=== PATIENT | male | born 1950 | race Caucasian/White ===

== ENCOUNTER 2020-01-29 07:43 | Emergency (ER) | payer MEDICARE, SELFPAY ==
[2020-01-29 07:52] VITALS: BP 147/85; PULSE 80; RESP 20; TEMP 36.2; O2SAT 98
[2020-01-29] MEDS: FAMOTIDINE 20 MG TABLET PO (08:12)
[2020-01-29] MEDS: predniSONE 20 MG TABLET 60 MG PO (08:13)
--- NOTE | 2020-01-29 08:46 | ED.SKABFB ---
HPI - Skin/Abscess/Foreign Bdy General Chief complaint: Skin/Abscess/Foreign Body Stated complaint: Hives Time Seen by Provider: 01/29/20 07:47 Source: RN notes reviewed History of Present Illness HPI narrative: Patient presents emergency department from home for hives. Patient states that symptoms began approximately 36 hours ago. States that initially began on his abdomen and spread throughout his body. He states that he did take Benadryl twice yesterday with resolution of the symptoms but then they returned. He denies any shortness of breath or swelling of the lips or tongue he denies any new soaps or lotions patient does state that approximately a month ago he was bit by a tick and been placed on doxycycline at that time with no further problems. Denies any fevers or chills. Denies any new medications Related Data Home Medications Medication Instructions Recorded Confirmed aspirin 81 mg tablet,delayed 81 mg PO DAILY 09/28/19 01/07/20 release ibuprofen 800 mg tablet 800 mg PO TID PRN 01/07/20 01/07/20 Allergies Allergy/AdvReac Type Severity Reaction Status Date / Time No Known Allergies Allergy Verified 01/29/20 08:03 Review of Systems Review of Systems: Narrative: Gen.: Denies fevers or chills ENT: Denies congestion denies swelling of the lips or tongue Respiratory: Denies shortness of breath or cough CV: Denies chest pain or palpitations GI: Denies abdominal pain nausea, emesis or diarrhea Musculoskeletal: Denies back pain or muscle pain Neuro: Denies numbness, tingling, weakness or focal weakness Skin: See HPI Except as documented, all other systems reviewed and negative [facility] Past Medical History Medical History Acute hip pain Coagulopathy Deep vein thrombosis Elevated blood pressure reading in office without diagnosis of hypertension History of atrial fibrillation without current medication Surgical History Surgical History (Updated 09/28/19 @ 13:49 by Willis Bates APRN) History of embolic filter insertion Status post ablation of atrial fibrillation Social History Social History Smoking status: Never smoker Alcohol intake: never Gender identity (if verbalized by the patient): Male Exam Narrative: Exam Narrative: APPEARANCE: No acute distress, nontoxic, resting in bed EYES: EOMI HEENT: Normocephalic, atraumatic, OMM, no swelling of lips or tongue RESPIRATORY: No respiratory distress Clear to auscultation bilaterally with no rhonchi wheezing or rales. CARDIOVASCULAR: Regular rate and rhythm without murmurs rubs or gallops. ABDOMINAL: Soft, nontender, nondistended, MUSCULOSKELETAl: Moves all extremities. No clubbing, cyanosis or edema. NEURO: Awake and alert. Following commands, speech normal, no focal deficits SKIN:: Warm, dry. Hives of her abdomen chest and back and proximal upper and lower extremities s PSYCHIATRIC: Normal affect/mood, Course Course Emergency Course: Patient with complete resolution of hives following medication Discussed with patient results of workup and diagnosis. Discussed need for follow-up with primary care, proper use of medication, and reasons to return to the emergency department. Patient understands and agrees to current treatment plan Vital Signs Vital signs: Vital Signs Temperature 97.2 F L 01/29/20 07:52 Pulse Rate 80 01/29/20 07:52 Respiratory Rate 20 01/29/20 07:52 Blood Pressure 147/85 H 01/29/20 07:52 Pulse Oximetry 98 01/29/20 07:52 Temperature 97.2 F L 01/29/20 07:52 Pulse Rate 80 01/29/20 07:52 Respiratory Rate 20 01/29/20 07:52 Blood Pressure 147/85 H 01/29/20 07:52 Pulse Oximetry 98 01/29/20 07:52 Discharge Plan Discharge Clinical Impression: Urticaria Patient Disposition: Home, Self-Care Condition: Stable Instructions: Antibiotic Form, Urticaria (ED) Additional Instructi
== END 2020-01-29 09:35 | disposition home or self-care (01) ==
PROVIDERS: Emergency Provider Emergency Medicine; PCP Internal Medicine
DX: L50.9 Urticaria, unspecified (principal); Z79.82 Long term (current) use of aspirin; Z86.73 Personal history of transient ischemic attack (TIA), and cerebral infarction without residual deficits; I48.91 Unspecified atrial fibrillation
CPT/HCPCS: 99283; A9270; J7512

== ENCOUNTER 2020-10-13 16:18 | Outpatient (CLI) | payer MEDICARE, SELFPAY ==
--- NOTE | ~2020-10-13 | US_ITS ---
EXAMINATION:US venous doppler LE LT INDICATION:Left lower extremity swelling TECHNIQUE: Multiple grayscale, color flow and Doppler images of the left lower extremity deep venous systems were obtained and reviewed. COMPARISON:No prior studies for comparison. FINDINGS: The common femoral, superficial femoral and popliteal veins demonstrate normal respiratory variation, augmentation and compressibility. Color flow is also seen within the posterior tibial, pe roneal, and profunda veins. IMPRESSION: 1: No lower extremity deep venous thrombosis. Reviewed, dictated and finalized at location A. E SPECIALIST
== END 2020-10-13 16:19 | disposition home or self-care (01) ==
PROVIDERS: PCP Internal Medicine; Visit Provider Internal Medicine
DX: M79.89 Other specified soft tissue disorders (principal); Z96.652 Presence of left artificial knee joint
CPT/HCPCS: 93971

== ENCOUNTER 2021-02-08 11:06 | Outpatient (CLI) | payer MEDICARE, SELFPAY ==
--- NOTE | ~2021-02-08 | CT_ITS ---
EXAMINATION: CT brain wo con DATE: 02/08/2021 11:31 INDICATION: Intracranial hemorrhage. TECHNIQUE: Computed tomography (CT) of the head was performed without intravenous contrast. The mA wa s adjusted according to patient size. Iterative reconstruction technique was employed. The dose-lengt h product was 605.33 mGy-cm. COMPARISON: Head CT 09/21/2012 FINDINGS: There is no intracranial hemorrhage, acute infarction, or abnormal intracranial mass lesion . There are scattered areas of low attenuation in the cerebral white matter, which is within normal l imits for the patient's age. The ventricles are normal in size. There are no pathologically enlarged lymph nodes. There is mild mucosal thickening in the paranasal sinuses. The mastoid air cells are nor mal. IMPRESSION: 1. Normal aging brain. Reviewed, dictated and finalized at location A. IMPRESSION: 1. Normal aging brain.
== END 2021-02-08 11:07 | disposition home or self-care (01) ==
PROVIDERS: PCP Internal Medicine
DX: Z01.818 Encounter for other preprocedural examination (principal)
CPT/HCPCS: 70450

== ENCOUNTER 2022-07-13 09:30 | Outpatient (CLI) | payer MEDICARE, SELFPAY ==
--- NOTE | ~2022-07-13 | CT_ITS ---
EXAMINATION: CT brain wo con DATE: 07/13/2022 09:56 INDICATION: Headache. History of cerebral hemorrhage. TECHNIQUE: Computed tomography (CT) of the head was performed without intravenous contrast. The mA wa s adjusted according to patient size. Iterative reconstruction technique was employed. Exam dose: 60 5.33 mGy-cm total exam DLP. COMPARISON: 02/13/2021 CT brain FINDINGS: There is bilateral basal ganglia calcification. No intracranial mass lesion or hemorrhage or cerebrovascular accident. No midline shift or mass effec t effect. Normal ventricular size. Bilateral carotid siphon internal carotid artery calcifications. There is mild nonspecific diminished attenuation of the cerebral white matter, likely due to chronic small vessel ischemic changes. Small luciana hole high over the right parietal convexity. No skull fracture or bone destruction. Parana jeanne sinuses and mastoid air cells are essentially unremarkable. IMPRESSION: Cerebral atherosclerosis and chronic small vessel ischemic changes of the cerebral white matter High right parietal luciana hole No acute intracranial finding Reviewed, dictated and finalized at Location A. Reviewed, dictated and finalized at location A.
== END 2022-07-13 09:31 | disposition home or self-care (01) ==
PROVIDERS: PCP Internal Medicine; Visit Provider Internal Medicine
DX: R51.9 Headache, unspecified (principal); I67.2 Cerebral atherosclerosis
CPT/HCPCS: 70450

== ENCOUNTER 2022-08-05 09:48 | Outpatient (CLI) | payer MEDICARE, SELFPAY | END 2022-08-05 09:49 | disposition home or self-care (01) | PROVIDERS: PCP Internal Medicine; Visit Provider Urology | DX: R97.20 Elevated prostate specific antigen [PSA] (principal); Z01.818 Encounter for other preprocedural examination | CPT/HCPCS: 87086 ==

== ENCOUNTER 2022-08-13 01:12 | Day surgery (SDC) | payer MEDICARE, SELFPAY ==
[2022-07-30 14:33] VITALS: BMI 26.8
--- NOTE | 2022-07-30 14:51 | PC.NURSE ---
Report to the Outpatient Waiting Room, entrance under the green pavilion located off [facility], at time _0600_ on date _08/13/22_. Planned Procedure Time: _0730_. Time changes happen often and if your time is changed the preop area will call you the afternoon before. - You and your visitor will be asked to self-screen and do not enter if you have any COVID symptoms. - Only one visitor is requested with a max of two and NO children visitors are allowed at this time. - The patient visitor may be requested to leave or wait in car when not with patient due to distancing restrictions. - A mask is optional within the hospital. Patients may have clear liquids (water, carbonated beverages, clear teas, apple juice) until 3 hours prior to surgery (0430 AM) with a maximum of 20 ounces. - No food from midnight until time of surgery Take the following medications with a SIP of water the morning of surgery: _BRING TIKOSYN WITH YOU, TYLENOL IF NEEDED_ Medications to discontinue per DR. CARPIO - _VITAMINS/SUPPLEMENTS 7 DAYS PRIOR TO SURGERY, Date to take last dose 08/05/22_ Medications to discontinue per DR. SAWANT - _ XARELTO 3 DAYS PRIOR TO SURGERY, Date to take last dose 08/05/22 - THEN LOVENOX DIRECTED Please no deodorant, or body powder the day of surgery. No jewelry (including any body piercings) or valuables the day of surgery, leave them at home. Please take a shower or bath the night before, or the morning of, surgery with an antibacterial soap. Wear comfortable, loose fitting clothing. - Jewelry must be removed prior to entering the operating room. Rings and piercings that are not removed may be cut off. - The hospital will not accept responsibility for valuables. - Please leave all valuables, including medications, at home the day of surgery. If you are going home after surgery, a licensed services delivery driver must drive you home. - NO public transportation without another adult if you receive anesthesia. - We recommend that an adult stay with you for 24 hours following discharge. - We also recommend that you do not drive, make important decision, drink alcoholic beverages, or take any drugs that were not prescribed by your health care provider for at least 24 hours after your discharge time. Follow any additional instructions given to you from your surgeon. If you or anyone in your household have experienced Covid symptoms in the past week, please notify your surgeon or the nurse liaison at the phone number below for possible testing. Telephone instructions given to ____PT and asked if any additional questions and then verbalized understanding. Patient advised to call surgeon office or pre surgery nurse liaison [phone] if any additional questions.
[2022-08-13 06:36] VITALS: BP 150/80; PULSE 63; RESP 16; TEMP 36.3; O2SAT 99
[2022-08-13] MEDS: LACTATED RINGERS 1,000 ML 30 ML IV CONT (06:45)
--- NOTE | 2022-08-13 07:21 | WPDANESEPPF ---
Anes - Initial Pre Proc Eval Procedure: Operation Date: 08/13/22 07:30 Proposed Procedures p Trans Rectal Ultrasound Fusion Guided Prostate Biopsy - Deepak Cr MD Date/Time: 08/13/22 07:21 Surgeon: Deepak Cr MD Pre Op Diagnosis: elevated PSA Patient Data Age: 71 Gender: M Height: 1.93 m Weight: 96.7 kg Last Vital Signs Temp 97.3 F L 08/13/22 06:36 Pulse 63 08/13/22 06:36 Resp 16 08/13/22 06:36 BP 150/80 H 08/13/22 06:36 Pulse Ox 99 08/13/22 06:36 O2 Del Method Room Air 08/13/22 06:36 Allergies Allergy/AdvReac Type Severity Reaction Status Date / Time No Known Allergies Allergy Verified 08/13/22 06:37 Home Medications Medication Instructions Recorded Confirmed Type calcium carbonate 500 mg calcium 500 mg PO DAILY 10/06/20 08/13/22 History (1,250 mg) tablet rivaroxaban 10 mg tablet (Xarelto) 10 mg PO DAILY 01/15/22 08/13/22 History sildenafil 100 mg tablet 100 mg PO DAILY PRN sexual 02/05/22 08/13/22 Rx activity #6 tabs dofetilide 500 mcg capsule 500 mcg PO BID 02/28/22 08/13/22 History (Tikosyn) acetaminophen 500 mg tablet 500 mg PO Q6H PRN Pain 04/19/22 08/13/22 History (Tylenol Extra Strength) enoxaparin 100 mg/mL subcutaneous 100 mg subcut Q12H 07/30/22 08/13/22 History syringe (Lovenox) Patient hx anesthesia problems: none Family hx anesthesia problems: none Results Review: All pre-operative results and documents have been reviewed as part of the pre-operative evaluation. [facility] Past Medical History Medical History Acute hip pain Chronic deep vein thrombosis (DVT) of right lower extremity Coagulopathy Deep vein thrombosis Elevated blood pressure reading in office without diagnosis of hypertension History of atrial fibrillation without current medication Right inguinal hernia Surgical History Surgical History History of embolic filter insertion S/P arthroscopic surgery of right knee Status post ablation of atrial fibrillation Total knee replacement status Family History Family History Mother Patient's mother is in good health Family history of Alzheimer's disease Father Patient's father is in good health Family history of cardiac disorder Other Family history of cardiovascular disease Social History Social History (Updated 07/12/22 @ 15:16 by Neha Coleman MA) Smoking status: Never smoker Second hand tobacco smoke exposure: No Alcohol intake: current Drinks per week: 4 Substance use: never Substance use type: does not use Lack of Transportation: No Lack of Food: Never True Current Housing: I Have Housing Concerned About Future Housing: No Difficulty Paying Gas/Electric Bills: No Difficulty Paying for Meds: No Currently Unemployed: No Education: Trade/Vocational Certificate Difficulty w/ Childcare or Family Care: No Living arrangements: with friend(s) Additional living arrangements comments: LIVES WITH SIGNIFICANT OTHER Gender identity (if verbalized by the patient): Male Spiritual care concerns: No Anes - Eval Final PreProcedure Day of Procedure 08/13/22 07:21 Patient weight: overweight Heart: regular rate and rhythm Lungs: clear to auscultation Airway: Mallampati scale class II Neurological: alert and oriented Last oral intake: >/= 8 hours ASA classification: III Emergent: no Anesthetic plan: proceed Results Review: All pre-operative results and documents have been reviewed as part of the pre-operative evaluation. Informed Consent: The patient's anesthetic plan and its attendant risks and benefits were discussed with the patient/family/POA. Questions were solicited and answers provided to the satisfaction of the patient/family/POA.
--- NOTE | 2022-08-13 07:28 | WPDHPUPDATE1 ---
History and Physical Update Update Date/Time: 08/13/22 07:28 History and Physical has been reviewed, including an updated exam of the patient. There are NO changes in the patient's condition. Risks, benefits, and alternatives have been discussed and questions answered. Patient agrees to proceed with procedure. Proceed with uronav us and prostate biopsy
[2022-08-13] MEDS: ceFAZolin 2 GM/D5W 50 ML 2 GM/50 ML BAG IVPB (07:36)
--- NOTE | 2022-08-13 08:02 | P.OP_ITS ---
Procedure Note - Detailed Date of Procedure 08/13/22 Pre-op Diagnosis elevated PSA Post-op Diagnosis Same Procedure Performed Uronav prostate ultrasound and biopsy Surgeon Deepak Cr MD Anesthesia General Description of Procedure Patient is taken the operative suite correctly identified. Once anesthesia was obtained was placed in decubitus position. Transrectal ultrasound probe was then inserted. The MRI image was then fused to the ultrasound image. Four cores were taken from the region of interest along the right anterior transition zone. We then did 12 standard core biopsy. Patient tolerated procedure well without any complications taken recovery stable condition. He is to call for [facility] results in 1 week. Estimated Blood Loss 0 Drains No Packing No Pathology Yes Complications No immediate complications Condition Stable Disposition PACU
[2022-08-13 08:07] VITALS: BP 120/66; PULSE 60; RESP 12; O2SAT 98
[2022-08-13 08:30] VITALS: BP 129/65; PULSE 56; RESP 16; O2SAT 100
[2022-08-13 08:47] VITALS: BP 140/71; PULSE 56; RESP 16
== END 2022-08-13 08:54 | disposition home or self-care (01) ==
PROVIDERS: PCP Internal Medicine; Visit Provider Urology
PROC: (CPT 55700; principal; 2022-08-13 07:30)
DX: C61 Malignant neoplasm of prostate (principal); I82.501 Chronic embolism and thrombosis of unspecified deep veins of right lower extremity; Z79.01 Long term (current) use of anticoagulants
CPT/HCPCS: 55700; 76872; 87086; 88342; G0416; J0690; J2250; J2405; J2704; J3010; J7120

== ENCOUNTER → 2023-07-22 08:13 | Outpatient (CLI) | payer MEDICARE, SELFPAY ==
--- NOTE | ~2023-07-22 | XR_ITS ---
Cervical Spine: AP, lateral, open-mouth views Clinical History: Pain Findings: The normal lordotic curve is maintained. No fracture identified. There is 3-4 mm retrolisth esis of C3 over C4. There is advanced degenerative disc narrowing at C3-C4. There are mild to moderat e facet arthropathy in the cervical spine. Pre-vertebral soft tissues are unremarkable. Impression: 3-4 mm retrolisthesis of C3 over C4. [id number] degenerative spondylitic changes, as above. Reviewed, dictated and finalized at location M. ING OPERATOR HELPER Impression: 3-4 mm retrolisthesis of C3 over C4. [id number] degenerative spondylitic changes, as above.
--- NOTE | ~2023-07-22 | CT_ITS ---
. EXAMINATION: CT brain wo con DATE: 07/22/2023 08:48 INDICATION: Headaches, beginning at the base of the neck and radiating to the frontal lobe, lasting h ours. History of 3 brain hemorrhages since 2004. TECHNIQUE: Computed tomography (CT) of the head was performed without intravenous contrast. The mA wa s adjusted according to patient size. Iterative reconstruction technique was employed. Exam dose: 64 5.69 mGy-cm total exam DLP. COMPARISON: 07/13/2022 CT brain FINDINGS: Bilateral carotid siphon internal carotid artery calcifications. Bilateral basal ganglia calcifications. No intracranial mass lesion or hemorrhage or cerebrovascular accident. No midline shift or mass effe ct. No subdural or epidural hematoma. No fracture or bone destruction of the cranial vault. There is a small mucous retention cyst of the posterior right maxillary sinus and opacification of a posteromedial right ethmoid air cell. IMPRESSION: Cerebral atherosclerosis No acute intracranial abnormality Reviewed, dictated and finalized at Location A. Reviewed, dictated and finalized at location L. FIXER
--- NOTE | ~2023-07-22 | MR_ITS ---
EXAMINATION: MR brain/brain stem wo/w con DATE: 07/22/2023 11:39 INDICATION: Headache. TECHNIQUE: Magnetic resonance imaging (MRI) of the brain and brainstem was performed without and with 19 mL MultiHance intravenous contrast. COMPARISON: Head CT 07/22/2023 FINDINGS: There are scattered areas of nonspecific increased T2-weighted signal intensity in the cere bral white matter, which is within normal limits for the patient's age. There is no intracranial hemo rrhage, acute infarction, or abnormal intracranial mass lesion. The ventricles are normal in size. Th e orbits are normal. The paranasal sinuses are clear. There is a trace left mastoid effusion. IMPRESSION: 1. Normal aging brain. Reviewed, dictated and finalized at location A. RVISOR BRIAR SHOP IMPRESSION: 1. Normal aging brain.
== END ==
PROVIDERS: PCP Family Medicine; Visit Provider Family Medicine
DX: M43.12 Spondylolisthesis, cervical region (principal); I67.2 Cerebral atherosclerosis
CPT/HCPCS: 70450; 70553; 72050; A9577

== ENCOUNTER 2023-07-30 12:45 | Outpatient (CLI) | payer MEDICARE, SELFPAY ==
[2023-07-30 19:18] LABS: Appearance Urine Clear (Clear); Color Urine Yellow (Yellow); Protein Urine Negative (Negative); Specific Grav Ur >= 1.030 (1.001-1.035); pH Urine 5.5 (5.0-9.0)
[2023-07-30 19:19] LABS: Add Urine Microscopic? NO; Bilirubin Urine 1+ (Negative); Blood Urine Negative (Negative); Glucose Urine UA Negative (Negative); Ketones Urine Trace mg/dL (Negative); Leukocyte Esterase Ur Negative LEU/UL (NEGATIVE); Nitrate Urine Negative (Negative); Urobilinogen Urine 0.2 mg/dL (<2.0)
[2023-07-30 19:32] LABS: Hematocrit 42.1 % (42.0-52.0); Mean Corpuscular HGB Conc 33.3 g/dl (32-36); Mean Corpuscular Hemoglobin 33.5 pg (26-34); Mean Corpuscular Volume 100.7 fl (80-100); Mean Platelet Volume 10.4 fl (7.4-10.4); Platelet Count Result 195 k/mm3 (150-375); Red Blood Count 4.18 M/mm3 (4.6-6.20); Red Cell Distribution Width 13.1 % (11.5-14.5); White Blood Count 5.6 K/mm3 (4.5-10.0)
== END 2023-07-30 12:46 | disposition home or self-care (01) ==
LOC: ANHGOSHLAB 12:46
PROVIDERS: PCP Family Medicine; Visit Provider Family Medicine
DX: R30.9 Painful micturition, unspecified (principal); R31.9 Hematuria, unspecified
CPT/HCPCS: 36415; 81003; 85027; 87086

== ENCOUNTER → 2023-07-30 13:01 | Outpatient (CLI) | payer MEDICARE, SELFPAY ==
--- NOTE | ~2023-07-30 | XR_ITS ---
XR abdomen/kub 1V 07/30/2023 13:21 INDICATION: Bloody stools TECHNIQUE: KUB COMPARISON: None FINDINGS: Bowel gas pattern is normal. There is an IVC filter with the superior tip at the L3 level. There is sclerosis overlying the right ilium which may represent a bone island. There is dextroscolio sis of the thoracolumbar spine. There is no evidence of free air, mass, organomegaly, ascites or obst ruction. No abnormal calculi are seen. The bones appear intact. IMPRESSION: 1: No acute abdominal abnormality identified. Reviewed, dictated and finalized at location B. RUCTIONAL AIDE
== END ==
PROVIDERS: PCP Urology; Visit Provider Family Medicine
DX: K92.1 Melena (principal)
CPT/HCPCS: 74018

== ENCOUNTER 2024-06-21 08:58 | Outpatient (CLI) | payer MEDICARE, SELFPAY ==
--- NOTE | ~2024-06-21 | US_ITS ---
EXAMINATION: US venous doppler [facility] DATE: 06/21/2024 10:26 INDICATION: Deep venous thrombosis presenting with lower limb swelling and erythema TECHNIQUE: Grayscale ultrasound images without and with compression and Doppler ultrasound images of the bilateral lower extremity veins were obtained. COMPARISON: None. FINDINGS: There is extensive noncompressible thrombus in the right common femoral vein, profunda (deep) femoral vein, femoral vein, popliteal vein, posterior tibial veins and gastrocnemius vein. This appears larg romina occlusive with vascular flow seen on color Doppler along side the thrombus with the exception of segment of the distal right femoral vein which appears occlusive. No evident thrombus in the visualiz ed right peroneal veins and greater saphenous vein outflow. There are dilated collateral veins at the posterolateral aspect the right knee. There is additional extensive thrombus in the visualized portions of left common femoral vein, profun da femoral vein, femoral vein and popliteal vein. This appears largely occlusive with vascular flow s een extending along the thrombus on color Doppler the exception of the left popliteal vein were there is a segment which appeared occlusive and one of the left posterior tibial veins which also appeared occlusive. The peroneal veins were not visualized. The posterior tibial veins, gastrocnemius vein an d greater saphenous vein outflow are patent. Per discussion with the academic affairs vice president there were additiona l collateral veins seen at the left popliteal fossa but an image which was not recorded. IMPRESSION: 1. Extensive deep venous thrombosis in both lower limbs extending from the common femoral veins dist ally to some of the veins in both calves. In a few areas the thrombus. Eccentric with linear echogeni c margins suggestive of chronic thrombus which likely also accounts for the prominent collateral vein s at the bilateral popliteal fossae. Findings were discussed with Candice Phillip MA at 1:00 PM. Reviewed, dictated and finalized at location A. IMPRESSION: 1. Extensive deep venous thrombosis in both lower limbs extending from the com mon femoral veins distally to some of the veins in both calves. In a few areas the thrombus. Eccentric with linear echogenic margins suggestive of chronic thr ombus which likely also accounts for the prominent collateral veins at the bila teral popliteal fossae. Findings were discussed with Candice Phillip MA at 1:00 PM.
== END 2024-06-21 08:59 | disposition home or self-care (01) ==
PROVIDERS: PCP Family Medicine; Visit Provider Nurse Practitioner Family
DX: M79.89 Other specified soft tissue disorders (principal); I82.491 Acute embolism and thrombosis of other specified deep vein of right lower extremity; I82.492 Acute embolism and thrombosis of other specified deep vein of left lower extremity
CPT/HCPCS: 93970

== ENCOUNTER 2024-10-26 14:08 | Outpatient (CLI) | payer MEDICARE, SELFPAY ==
--- NOTE | ~2024-10-26 | XR_ITS ---
EXAM: XR knee RT 3V, XR tibia fibula RT 2V DATE: 10/26/2024 14:31 HISTORY: M89.8X6 - Other specified disorders of bone, lower leg . COMPARISON: 10/26/2024, images only. FINDINGS: Normal mineralization. No fracture or dislocation. No lytic or blastic lesion. Joint space s are moderate medial joint space narrowing. Mild tricompartmental osteophytosis. Moderate volume ash nt fluid. No erosion or periosteal change. Mild degenerative change at the tibiotalar joint. Prominen t os trigonum. Achilles enthesopathy. Soft tissue edema of the leg. IMPRESSION: Tricompartmental right knee osteoarthritic arthritis, moderate in the medial compartment. Moderate right knee joint effusion. Prominent os trigonum, which can be a source of chronic posterio r ankle pain in some patients. Reviewed, dictated and finalized at [facility]. L LEAF LAYER IMPRESSION: Tricompartmental right knee osteoarthritic arthritis, moderate in t he medial compartment. Moderate right knee joint effusion. Prominent os trigonu m, which can be a source of chronic posterior ankle pain in some patients.
--- OUTSIDE RECORDS SUMMARY | 2024-10-26 14:12 | XMS_ITS | Encounter Summary ---
Author Organization [facility] Address [address] [place] [address] Care Team Providers Care Oncology Specialist Name Role Phone Amando Rooney DO Primary Care Provider [phone] Sarath Edward MD Primary Care Provider [phone] Denny Polo DO Primary Care Provider [phone] aMlaika Wolf MD Unavailable Jeffry Novak MD Primary Care Provider [phone] Encounter Details Date Type Department Care Team (Late st Contact Info) Description 07/22/2012 [facility] Outpatient Visit [facility] - Family Medicine [address] [place] [address] Amando Rooney DO [address] [place] [address] Social History Tobacco Use Types Packs/Day Years Used Date Smoking Tobacco: Never Smokeless Tobacco: Never Alcohol Use Standard Drinks/Week Comments Yes 5 (1 standard drink = 0.6 oz pur e alcohol) Sex and Gender Information Value Date Recorded Sex Assigned at Male 03/04/2022 6:00 PM CDT Gender Identity Male 03/04/2022 6:00 PM CDT Sexual Orientation Not on file documented as of this encounter Plan of Treatment Upcoming Encounters Date Type Department Care Team (Late st Contact Info) Description 12/29/2024 1:20 PM CDT Appointment [facility] [address] [place] [address] Malaika Wolf MD [address] [place] [phone] 12/29/2024 2:20 PM CDT Appointment [facility] [place] [id number] [place] [address] Malaika Wolf MD [facility] [place] [phone] 02/10/2025 10:00 AM CDT Office Visit [facility] - Cardiology [address] [place] [phone] Manuelito Clarke MD [address] [place] [phone] documented as of this encounter Visit Diagnoses Not on filedocumented in this encounter Care Teams Oncology Specialist Relationship Specialty Start Date End Date Amando Rooney DO [address] [place] [address] PCP - General Family Medicine 01/27/13 02/04/18 Sarath Edward MD [address] [place] [phone] PCP - General 02/05/18 08/23/20 Denny Polo DO [address] [address] PCP - General Internal Medicine 08/24/20 09/28/23 Jeffry Novak MD [address] [place] [phone] PCP - General Family Medicine 09/29/23 Malaika Wolf MD [address] [place] [phone] Physician Hematology and Oncology 09/10/23 documented as of this encounter
--- OUTSIDE RECORDS SUMMARY | 2024-10-26 14:12 | XMS_ITS | Clinical Summary ---
Author Organization [facility] Address [address] [place] [address] Care Team Providers Care Golf Ball Cover Treater Name Role Phone Denny Polo DO Primary Care Provider [phone] Allergies No known active allergies Medications calcium carbonate (OS-YESI) 1,250 MG (500 mg of elemental calcium) tablet Take 1 tablet (1,250 mg total) by mouth daily 10/04/2020 Active dofetilide (TIKOSYN) 500 mcg capsule 06/16/2021 Active rivaroxaban (XARELTO) 10 mg tabletIndicatio ns:Acute deep vein thrombosis (DVT) of axillary vein of left upper extremity (HCC) Take 1 tablet (10 mg total) by mouth daily 30 tablet 12/21/2021 Active sildenafiL (VIAGRA) 100 mg tablet 02/05/2022 Active ibuprofen (ADVIL,MOTRIN) 200 mg tab/cap Take 200 mg by mouth 4 (four) times a day as needed Active acetaminophen (TYLENOL) 500 mg tablet Take 500 mg by mouth every 6 (six) hours as needed for pain Active enoxaparin (LOVENOX) 100 mg/mL syringe Inject 100 mg under the skin every 12 (twelve) hours 06/10/2022 Active topiramate (TOPAMAX) 25 mg tablet TAKE 1 TABLET BY MOUTH EVERY DAY AT BEDTIME FOR 3 DAYS THEN INCREASE TO TWICE A DAY 07/15/2022 Active Active Problems Problem Noted Date Diagnosed Date Subdural hematoma 03/08/2021 Overview (08/13/2021): X3, 1 hematoma evacuation Lupus anticoagulant positive 03/08/2021 HTN (hypertension) 03/08/2021 Atrial flutter ([facility]) 01/12/2021 Overview (01/22/2021): Added automatically from request for surgery [id number] Longstanding persistent atrial fibrillation ([facility]) 11/29/2020 Vitamin D deficiency 09/29/2020 Primary osteoarthritis of left knee 05/04/2020 Dyspnea on exertion 10/13/2019 Other chest pain 10/11/2019 Chronic pain of left knee 04/14/2019 Presence of IVC filter 07/12/2018 Effusion of left knee 03/24/2018 Chondromalacia of medial femoral condyle, right 02/23/2018 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 02/18/2018 Chondromalacia of trochlea 12/02/2017 Chondromalacia of medial condyle of right femur 12/02/2017 Chondromalacia of right patella 12/02/2017 Localized chondromalacia 12/02/2017 Tibial plateau chondromalacia 12/02/2017 Complex tear of medial menis cus of right knee as current injury 10/13/2017 Effusion of knee 10/13/2017 Osteoarthritis of left knee 10/13/2017 Osteoarthritis of right knee 10/13/2017 Tear of medial meniscus of knee 10/13/2017 Varicose veins of lower extremities with inflamm ation 01/18/2016 Acute embolism and thrombosi s of deep vein of lower extremity 02/23/2013 Personal history of other di seases of the circulatory system 02/23/2013 Venous insufficiency (chronic) (peripheral) 02/06 A-fib ([facility]) 05/02/2011 Overview (08/13/2021): Last Assessment & Plan: S/P mini Maze, currently taking Tikosyn for rhythm control with QTc of 432 ms. Patient is tolerating Tikosyn and presents in sinus rhythm today. He feels great. Plan to continue Tikosyn as managed by Dr. Mendoza at [facility]. Continue Eliquis for 30 days after cardioversion. Follow-up as scheduled with Dr. Mendoza's team in May and with Dr. Clarke in August or sooner PRN. Immunizations Immunization Administration Dates Next Due Influenza, Quad, Adjuvantated, Intramuscular 04/2020 Influenza, Trivalent, High D ose, Split, Preservative Free, Intramuscular 06/10/2019 Influenza, Trivalent, Split, Preservative Free, Intradermal 06/11/2013 Surgical History Surgery Date Site/Laterality Comments IVC FILTER RETRIEVAL 09/08/2004 - 09/07/2005 TONSILLECTOMY ORCHIECTOMY VARICOSE VEIN SURGERY OTHER SURGICAL HISTORY subdural hematoma evacuation SWEET-MAZE MICROWAVE ABLATION 09/08/2010 - 09/07/2011 CARDIAC ELECTROPHYSIOLOGY STUDY AND ABLATION HERNIA REPAIR inguinal hernia JOINT REPLACEMENT 09/2020 Medical History Medical History Date Comments Atrial fibrillation (CMS/HCC) (HCC) recurrence DVT of lower extremity (deep venous thrombosis) (HCC) Subdural hematoma (HCC) x3 Presence of IVC filter Arthritis Clotting disorder (CMS/HCC) (HCC) 2004 Kidney stone 1996 Family History Medical History Relation Name Comments Arthritis Father Schuyler Family history of arthritis - (Added by TW Conv) Hypertension Father Schuyler Family history of hypertension - (Added by TW Conv) Alzheimer's disease Mother Yakelin Relation Name Status Comments Father Schuyler Mother Yakelin Social History Tobacco Use Types Packs/Day Years Used Date Smoking Tobacco: Never Smokeless Tobacco: Never Tobacco Cessation:Counseling Given: Not Answered Alcohol Use Standard Drinks/Week Comments Yes 6 (1 standard drink = 0.6 oz pur e alcohol) Sex and Gender Information Value Date Recorded Sex Assigned at Not on file Legal Sex Male 11:37 AM BLAST FURNACE CHECKER Gender Identity Not on file Sexual Orientation Not on file Obstetrics History Last Filed Vital Signs Vital Sign Reading Time Taken Comments Blood Pressure 164/81 07/29/2022 2:46 PM BLAST FURNACE CHECKER Pulse 83 07/29/2022 2:46 PM BLAST FURNACE CHECKER Temperature 36.3 C (97.4 F) 07/29/2022 2:46 PM BLAST FURNACE CHECKER Respiratory Rate 18 10/04/2020 7:45 AM BLAST FURNACE CHECKER Oxygen Saturation 96% 10/04/2020 7:45 AM BLAST FURNACE CHECKER Inhaled Oxygen Concentration - - Weight 99.8 kg (220 lb) 07/29/2022 2:46 PM BLAST FURNACE CHECKER Height 190.5 cm (6' 3 ) 07/29/2022 2:46 PM BLAST FURNACE CHECKER Body Mass Index 27.5 07/29/2022 2:46 PM BLAST FURNACE CHECKER Plan of Treatment Health Maintenance Due Date Last Done Comments Colon Cancer Screening-Colonoscopy 1950 Depression Screening 1950 Hepatitis C Screening 1950 DTaP/Tdap/Td Vaccine (1 - Tdap) 11/06/1962 Hepatitis B Screening 11/06/1969 Pneumococcal vaccine 65+ (1 of 1 - PCV) 11/06/2001 Zoster Vaccine (1 of 2) 11/06/2001 Abdominal Aortic Aneurysm (A AA) Screen 11/06/2016 12/18/2015 Well Visit 65+ 11/06/2016 Fall Risk Assessment 10/04/2021 10/04/2020 Influenza Vaccine (#1) 2024 2, 05/16/2020, 06/10/2019, Additional history exists Medical Devices Implanted Type Area Box Gluer Device Identifier Shelf Expiration Date Model / Serial / Lot Ivc Filter- 5 Implanted:Qty: 1 on 09/20/2004 IVC Filter Right: Groin [employer] [id number] Attune Cruciate Retain Cementless Knee Left 8 Component Femoral - Sn/A - [id number] Implanted:Qty: 1 on 10/03/2020 by Koffi Liao MD at [facility] Other - see comments Left: Knee [employer] [id number] 03/07/2030 [id number] / N/A / [id number] [employer] [id number] Attune Cementless Rotate Platform Knee 10 Baseplate Tibial - Sn/A - [id number] Implanted:Qty: 1 on 10/03/2020 by Koffi Liao MD at [facility] Other - see comments Left: Knee [employer] [id number] 09/07/2029 [id number] / N/A / [id number] [employer] [id number] Attune 8mm Cruciate Retaining Rotate Platform Knee 8 Insert - Sn/A - [id number] Implanted:Qty: 1 on 10/03/2020 by Koffi Liao MD at [facility] Other - see comments Left: Knee [employer] [id number] 08/07/2025 [id number] / N/A / [id number] Procedures Procedure Name Priority Date/Time Associated Diagnosis Comments CTA ABDOMEN PELVIS W WO CONTRAST Routine 12/18/2015 12:30 PM CDT from Last 3 Months or Most Recently Relevant to Health Maintenance Results * CTA Abdomen Pelvis (12/18/2015 12:30 PM CDT) Anatomical Region Laterality Modality Body N/A Computed Tomogra phy 12/18/2015 12:3 0 PM CDT Impressions 12/18/2015 2:54 PM CDT 1. 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 2. There is suboptimal contrast opacification of the common and visualized portions of the superficial femoral veins. The femoral veins are symmetric and not enlarged or inflamed which suggests they are not acutely occluded. 3. Large right varicocele. 4. Diverticulosis without evidence of diverticulitis. Automated exposure control was used as a dose optimization technique for this examination. THIS IS AN ELECTRONICALLY VERIFIED REPORT 12/18/2015 2:50 PM: Danilo Sweet M.D. Danilo Sweet M.D. EMELY:emely 02:50 PM 02:50 PM [facility] [EOD] Narrative 12/18/2015 2:54 PM CDT EXAMINATION: Pre and post IV contrast CT the abdomen and pelvis. HISTORY: Chronic blood clots. Darcy filter placed 06/2005. Increased leg pain. Kidney stones 2 years ago. TECHNIQUE: Pre and post IV contrast CT the abdomen pelvis including delayed imaging. 100 mL Omnipaque 340 was administered the right antecubital IV site. No oral contrast. FINDINGS: There is an IVC filter seen with the tip at the level of the right renal vein. There is calcified thrombus seen within the filter. The IVC filter is diminutive and probably chronically occluded at the level of the IVC filter. There is collateralization of the venous flow from the pelvis with numerous pelvic varices. Knee into the right renal vein/IVC above the level of the filter. venous collaterals are seen arising from the common femoral vein is seen bilaterally. The common femoral veins are symmetric and size and there is no evidence of inflammatory change the iliac veins are occluded. There is a large right varicocele and fat filled right inguinal hernia. There are umbilical varices. The superior mesenteric vein is mildly enlarged in opacified normally. The portal venous system is opacified normally. The abdominal aorta and abdominal arteries are normally opacified. subsegmental atelectasis relating contour of the pleura posteriorly is noted. The liver, adrenals, pancreas, spleen, kidneys and gallbladder are unremarkable. There are numerous colonic diverticula without evidence of diverticulitis. The appendix is normal. There is no inflammatory change of the bowel. No evidence of obstruction. No free abdominal air free fluid. There are no suspicious osseous lesions. There is severe degenerative intervertebral disc disease at L5-S1 and mild multilevel degenerative intervertebral disc disease of the lumbar spine. Procedure Note Provider, MD Mono - 01/24/2021 EXAMINATION: Pre and post IV contrast CT the abdomen and pelvis. HISTORY: Chronic blood clots. Salvisa filter placed 06/2005.Increased leg pain. Kidney stones 2 years ago. TECHNIQUE: Pre and post IV contrast CT the abdomen pelvis includingdelayed imaging. 100 mL Omnipaque 340 was administered the right antecubital IVsite. No oral contrast. FINDINGS: There is an IVC filter seen with the tip at the level of theright renal vein. There is calcified thrombus seen within the filter. The IVC filter is diminutive and probably chronically occluded at the level of theIVC filter. There is collateralization of the venous flow from the pelvis with numerous pelvic varices. Knee into the right renal vein/IVC above thelevel of the filter. venous collaterals are seen arising from the commonfemoral vein is seen bilaterally. The common femoral veins are symmetric and sizeand there is no evidence of inflammatory change the iliac veins areoccluded. There is a large right varicocele and fat filled right inguinal hernia. There are umbilical varices. The superior mesenteric vein is mildlyenlarged in opacified normally. The portal venous system is opacified normally. The abdominal aorta and abdominal arteries are normally opacified. subsegmental atelectasis relating contour of the pleura posteriorly isnoted. The liver, adrenals, pancreas, spleen, kidneys and gallbladder are unremarkable. There are numerous colonic diverticula without evidence of diverticulitis. The appendix is normal. There is no inflammatory change of the bowel. No evidence of obstruction. No free abdominal air free fluid. There are no suspicious osseous lesions. There is severe degenerative intervertebraldisc disease at L5-S1 and mild multilevel degenerative intervertebral discdisease of the lumbar spine. IMPRESSION: 1. 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 2. There is suboptimal contrast opacification of the common andvisualized portions of the superficial femoral veins. The femoral veins aresymmetric and not enlarged or inflamed which suggests they are not acutely occluded. 3. Large right varicocele. 4. Diverticulosis without evidence of diverticulitis. Automated exposure control was used as a dose optimization technique forthis examination. THIS IS AN ELECTRONICALLY VERIFIED REPORT 12/18/2015 2:50 PM: Danilo Sweet M.D. Danilo Sweet M.D. EMELY:emely 02:50 PM 02:50 PM [facility] [EOD] Himanshu Brito MD IM CT PROCEDURES Final Re sult from Last 3 Months or Most Recently Relevant to Health Maintenance Insurance [employer] CHO[employer] MEDICARE PPO [employer] CHOICE MEDICARE PPO [employer]ICE MEDICARE PPO Advance Directives For more information, please contact: [phone] Documents on File Type Date Recorded Patient Decommissioning Well Site Manager Expl anation ADVANCE DIRECTIVE 10/03/2020 9:53 AM ADVANCE DIRECTIVE 01/09/2018 11:21 AM ADVANCE DIRECTIVE 01/09/2018 Advance Di rective Checklist ADVANCE DIRECTIVE 02/02/2016 12:00 AM ABEL [employer] * Full Code (Latest Code Status on File) Date Activated Date Inactivated Comments 10/03/2020 3:58 PM 10/04/2020 1:55 PM Care Teams Golf Ball Cover Treater Relationship Specialty Start Date End Date Denny Polo DO PCP - General Internal Medicine 04/06/19
--- OUTSIDE RECORDS SUMMARY | 2024-10-26 14:12 | XMS_ITS | Continuity of Care Document ---
Author Organization [facility] Address [address] [place] [address] Phone Care Team Providers Care Cut Roll Machine Offbearer Name Role Phone Jairo Webb MD Unavailable Unavailable Allergies, Adverse Reactions, Alerts Substance Reaction Status Criticality No Known Allergies Active No Inform ation Medications Medication Instructions Dosage Effective Dates (start - stop) Status Comments No Drug Therapy Prescribed Procedures Procedure Date RADEX [facility] 1 VIEW OFFICE/OUTPATIENT VISIT EST OFFICE CONSULTATION RADEX ISIDRO COMPL MINIMUM 2 VIEWS 016 Advance Directives Directive Yes / No Effective Date File Name No Information Encounters Encounter Description Practice Location Reason(s) For Visit Diagnoses Date Provider Providers Copied on Encounter [facility], [address], [place], [address], [place] tel:[phone] [facility] No Information 6 Tracey Gill. [address] [facility] [address] [place], [place], [id number] . tel: [phone] OFFICE/OUTPAT IENT VISIT EST [facility], [address], [place], [address], [place] tel:[phone] [facility] Pain in right shoulderIncompl ete tear of right rotator cuffClosed fracture of right scapula with routine healing, unspecified part of scapula, subsequent encounter 6 Dusek Jairo. [address] [facility] [place], [id number] . tel: [phone] OFFICE CONSULTATION [facility], [address], [place], [address], [place] tel:[phone] [facility] Right shoulder pain (chief complaint) Closed fracture of right scapula, unspecified part of scapula, initial encounterIncomp lete tear of right rotator cuff 6 Zachariah Thompson. [address], [place], [place], [id number] . tel: [phone] Referring Provider: Sarath Levin, [address], [place], [address]. tel:[phone] Family History Family Member Type Diagnosis Age At Onset Father Problem (finding) osteoarthritis Father Problem (finding) atrial fibrillation Payers Payer name Insurance type Covered constitution party ID Nicole kelly(s) Blue Access PPO E2 OT [id number] Social History Type Description Quantity Date Captured Comments Alcohol Use Details Unknown Caffeine Use Details Unknown Tobacco Use Status No Information Smoking Status No Information Sex Male Chief Complaint And Reason For Visit No Information Reason For Referral Reason For Referral No Information Plan Of Treatment Date Type Action Status Referral Ordered: RADEX ISIDRO 1 VIEW RT shoulder ordered Referral Ordered: RADEX ISIDRO COMPL MINIMUM 2 VIEWS RT ordered History Of Present Illness Encounter Date Complaint History Of Prese nt Illness Right shoulder pain Functional Status Date Functional Assessmen t No Information Medications Administered Medication Instructions Dosage Effective Dates (start - stop) Status Comments No Drug Therapy Prescribed Instructions Date Instruction Additional Infor mation Rest, ice and elevate. Related t o Incomplete tear of right rotator cuff Take medication as directed. Rel ated to Incomplete tear of right rotator cuff Discussed treatment options Rela braden to Incomplete tear of right rotator cuff Call for increase in pain Relate d to Incomplete tear of right rotator cuff Assessments Type Assessment Date No Information Patient Care Teams Name Effective Dates (start - stop) Status Members No Information
--- OUTSIDE RECORDS SUMMARY | 2024-10-26 14:12 | XMS_ITS | Clinical Summary ---
Author Organization [facility] Address [address] [place] [address] Care Team Providers Care Telecom Billing Analyst Name Role Phone Malaika Wolf MD Unavailable Jeffry Novak MD Primary Care Provider [phone] Source Comments [facility],non-owned Affiliates and Associated Physician Practices is amultiple site organization consisting of ambulatory clinics and hospital sitesin [place], [place], [place] and [place]. This disclosure is being madepursuant to the Care Everywhere program and may not contain all information available regarding this patient. Last updated 18.[facility] Allergies No known active allergies Medications * Be aware that medications may not be up to date on this document. Alwaysverify current medications with the patient. Medication Sig Dispensed Refills Start Date End Date Status acetaminophen (TYLENOL) 500 MG capsule Take 1 (one) capsule by mouth every 4 hours as needed for Fever or Pain Active calcium carbonate (OS-YESI 500) 1250 (500 Ca) MG tablet Take 2.5 (two and one-half) tablets by mouth once daily 10/04/2020 Active sildenafil (VIAGRA) 100 MG tablet 01/17/2021 Active Multiple Vitamins-Minerals (MULTIVITAMIN & MINERAL PO) Active rivaroxaban (Xarelto) 10 MG tabletIndications: 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 (HCC) Take 1 (one) tablet by mouth daily with dinner 30 tablet 2 06/12/2023 Active polyethylene glycol (Gavilyte-C) 240 g solution Drink half the prep at 5pm the night before colonoscopy. Drink the rest of prep at 4am the day of the colonoscopy. 4000 mL 09/30/2023 Active Additional Information Patient not taking.Reported on 10/02/2023 dofetilide (Tikosyn) 500 MCG capsule Take 1 (one) capsule by mouth 2 times daily 180 capsule 11 10/02/2023 Active amoxicillin (Amoxil) 500 MG capsule Take 4 capsules 2 hours before dental procedure. 4 capsule 10/02/2023 Active Additional Information Patient not taking.Reported on 12/24/2023 Active Problems Problem Noted Date Diagnosed Date HTN (hypertension) 03/08/2021 Lupus anticoagulant positive 03/08/2021 Subdural hematoma 03/08/2021 Overview (07/25/2022): X3, 1 hematoma evacuation X3, 1 hematoma evacuation Longstanding persistent atrial fibrillation 11/07 Vitamin D deficiency 09/29/2020 Dyspnea on exertion 10/13/2019 Other chest pain 10/11/2019 Chronic pain of left knee 04/14/2019 Presence of IVC filter 07/12/2018 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 02/18/2018 Chondromalacia 12/02/2017 Complex tear of medial menis cus of right knee as current injury 10/13/2017 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 Patient is tolerating Tikosyn and presents in sinus rhythm today. He feels great. Plan to continue Tikosyn as managed by Dr. Mendoza at [facility]. Continue Eliquis for 30 days after cardioversion. Follow-up as scheduled with Dr. Mendoza's team in May and with Dr. Clarke in August or sooner PRN. Resolved Problems Problem Noted Date Diagnosed Date Resolved Date DVT (deep venous thrombosis) 06/05/2014 Fluttering heart 06/05/2014 Encounters Date Type Department Care Team Description 08/25/2024 Telephone [facility] - Centralized Scheduling [address] [place] [address] Blayne Clarke MD Reschedule Appointment 08/19/2024 9:40 AM [facility] [place] Office Visit [facility] - Cardiology [address] [facility] [place] [phone] Blayne Clarke MD Atypical atrial flutter (HCC) (Primary Dx) 08/19/2024 Travel from Last 3 Months Immunizations Name Administration Dates Next Due INFLUENZA VACCINE 06/28/2022 INFLUENZA VACCINE, ADJUVANTE D, QUADR. (FLUAD QUADRIVALENT; 65Y+) (AIIV4) 05/16/2020 INFLUENZA VACCINE, HIGH-DOSE , QUADR. (FLUZONE HIGH-DOSE QUADRIVALENT; 65Y+), 0.7 ML (HD-IIV4) 06/10/2019 Influenza Pf Intradermal (ADULT) 06/11/2013 Social History Tobacco Use Types Packs/Day Years Used Date Smoking Tobacco: Never Smokeless Tobacco: Never Tobacco Cessation:Counseling Given: Not Answered Alcohol Use Standard Drinks/Week Comments Yes 5 (1 standard drink = 0.6 oz pur e alcohol) occ PHQ-2 Answer Date Recorded PHQ2 TOTAL SCORE 0 07/25/2022 Sex and Gender Information Value Date Recorded Sex Assigned at Male 03/04/2022 6:00 PM CDT Gender Identity Male 03/04/2022 6:00 PM CDT Sexual Orientation Not on file Last Filed Vital Signs Vital Sign Reading Time Taken Comments Blood Pressure 150/90 08/19/2024 9:49 AM [facility] Pulse 78 08/19/2024 9:49 AM [place] Temperature 36.8 C (98.2 F) 07/14/2024 10:46 AM [place] Respiratory Rate 18 07/14/2024 10:46 AM [place] Oxygen Saturation 97% 08/19/2024 9:49 AM [place] Inhaled Oxygen Concentration - - Weight 98.9 kg (218 lb) 08/19/2024 9:49 AM [place] Height 193 cm (6' 4 ) 08/19/2024 9:49 AM [place] Body Mass Index 26.54 08/19/2024 9:49 AM [place] Plan of Treatment Upcoming Encounters Date Type Department Care Team (Late st Contact Info) Description 12/29/2024 1:20 PM CDT Appointment [facility] [address] [place] [phone] Malaika Wolf MD [address] [place] [phone] 12/29/2024 2:20 PM CDT Appointment [facility] [address] [place] [phone] Malaika Wolf MD [address] [place] [phone] 02/10/2025 10:00 AM CDT Office Visit [facility] - Cardiology [facility] [phone] Blayne Clarke MD [address] [place] [phone] Health Maintenance Due Date Last Done Comments COLOGUARD (AGES 45-75) - COLON CA SCREENING 1950 COLON MONITORING 1950 COLONOSCOPY - COLON CA SCREENING 1950 CT COLONOGRAPHY - COLON CA SCREENING 1950 Colorectal Cancer Screening 1950 FIT - COLON CA SCREENING 1950 FLEX SIG - COLON CA SCREENING 1950 LIPID TESTING 1950 HEPATITIS C SCREENING 11/02/1969 DTAP/TDAP/TD VACCINES (1 - Tdap) 11/06/1970 PNEUMOCOCCAL VACCINE 50+ (1 of 1 - PCV) 11/06/2001 ZOSTER VACCINE (1 of 2) 11/06/2001 Respiratory Syncytial Virus (RSV) Vaccine Pt: or over 60 yrs (1 - Risk 60-74 years 1-dose series) 2011 COVID-19 VACCINE ( season) 2024 02/12/2022, 07/06/2021, 12/07/2020, Additional history exists INFLUENZA VACCINE (#1) 2024 2, 06/13/2022, 06/07/2021, Additional history exists DEPRESSION SCREENING 09/08/2024 07/25/2022 MEDICARE AWV CALENDAR YEAR 2024 SCREENING FOR DIABETES 09/10/2027 , 06/30/2024, 12/24/2023, Additional history exists HEPATITIS B VACCINE Aged Out No longe r eligible based on patient's age to complete this topic HIB VACCINE Aged Out No longer eligi ble based on patient's age to complete this topic HPV VACCINE Aged Out No longer eligi ble based on patient's age to complete this topic MENINGOCOCCAL (Group B) VACCINE Aged Out No longer eligible based on patient's age to complete this topic MENINGOCOCCAL VACCINE Aged Out No luda luz maria eligible based on patient's age to complete this topic Medical Devices Implanted Type Area Glass Worker Device Identifier Shelf Expiration Date Model / Serial / Lot Mesh Srg Ultrapro 4.7x2.4in Lg [place] Implanted:Qty: 1 on 08/03/2018 by Lionel Bee MD at [facility] Right: [employer] 02/06/2020 [facility] / / [id number] Description:DOCUMENTED BY Julianne Harrison Procedures Procedure Name Priority Date/Time Associated Diagnosis Comments BASIC METABOLIC PANEL (CALCIUM TOTAL) Routine 09/10/2024 7:13 AM [facility] [place] Atypical atrial flutter (HCC) EKG 12-LEAD Routine 08/19/2024 9:58 AM [facility] Atypical atrial flutter (HCC) from Last 3 Months Results * (ABNORMAL) BASIC METABOLIC PANEL (CALCIUM TOTAL) (09/10/2024 7:13 AM [facility]) Glucose 100(H) 65 - 99 mg/dL [facility] Comment: Fasting reference interval For someone without known diabetes, a glucose value between 100 and 125 mg/dL is consistent with prediabetes and should be confirmed with a follow-up test. BUN 14 7 - 25 mg/dL [facility] Creatinine 0.85 0.70 - 1.28 mg/dL [facility] eGFR by Cystatin C 92 > OR = 60 mL/min/1. 73m2 [facility] BUN/Creatinine Ratio SEE NOTE: (calc) [facility] Comment: Not Reported: BUN and Creatinine are within reference range. Sodium 141 135 - 146 mmol/L [facility] Potassium 4.5 3.5 - 5.3 mmol/L [facility] Chloride 105 98 - 110 mmol/L [facility] CO2 29 20 - 32 mmol/L [facility] Calcium 9.0 8.6 - 10.3 mg/dL [facility] Comment: Test Performed at: [facility] [id number] DERIC JEAN BAPTISTE MD Blood BLOOD SPECIMEN / Unknown 09/10/2024 7:13 AM [place] 09/10/2024 7:14 AM [place] Blayne Clarke MD LAB - CHEMISTRY [facility] [address] [address] * EKG 12-LEAD (08/19/2024 9:58 AM [facility] [place]) Ventricular Rate 75 BPM [facility] Atrial Rate 75 BPM [facility] P-R Interval 186 ms [facility] QRS Duration ms 90 ms [facility] Q-T Interval ms 436 ms [facility] QTC Calculation (Bezet) 486 ms [facility] Calculated P Hartley 92 degrees [facility] Calculated R Hartley 1 degrees [facility] Calculated T Hartley 41 degrees [facility] Interpretation EKG NORMAL SINUS RHYTHM PROLONGED QT ABNORMAL ECG WHEN COMPARED WITH ECG OF 02-OCT-2023 14:47, ABERRANT CONDUCTION IS NO LONGER PRESENT Confirmed by fellow NIKA TRAMMELL MD ([id number]) on 08/26/2024 8:40:07 AM Confirmed by BLAYNE CLARKE MD ([id number]) on 08/28/2024 2:13:35 PM [facility] 08/19/2024 9:58 AM [facility] 08/28/2024 2:13 PM [facility] [place] Blayne Clarke MD ECG ORDERABLES [facility] from Last 3 Months Advance Directives Documents on File Type Date 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
--- OUTSIDE RECORDS SUMMARY | 2024-10-26 14:12 | XMS_ITS | Patient Health Summary ---
Author Organization [facility] [employer] Address [address] [place] [address] Care Team Providers Care Product Inspection Supervisor Name Role Phone Malaika Wolf MD Unavailable Jeffry Novak MD Primary Care Provider [phone] Note from [facility],non-owned Affiliates and Associated Physician Practices is amultiple site organization consisting of ambulatory clinics and hospital sitesin [place], [place], [place] and [place]. This disclosure is being madepursuant to the Care Everywhere program and may not contain all information available regarding this patient. Last updated 18.[facility] Allergies No known active allergies Medications * Be aware that medications may not be up to date on this document. Alwaysverify current medications with the patient. * acetaminophen (TYLENOL) 500 MG capsule Take 1 (one) capsule by mouth every 4 hours as needed for Fever or Pain * calcium carbonate (OS-YESI 500) 1250 (500 Ca) MG tablet(Started 10/04/2020) Take 2.5 (two and one-half) tablets by mouth once daily * sildenafil (VIAGRA) 100 MG tablet(Started 01/17/2021) * Multiple Vitamins-Minerals (MULTIVITAMIN & MINERAL PO) * rivaroxaban (Xarelto) 10 MG tablet(Started 06/12/2023) Take 1 (one) tablet by mouth daily with dinner 2 refills by 06/11/2024 * polyethylene glycol (Gavilyte-C) 240 g solution(Started 09/30/2023) Drink half the prep at 5pm the night before colonoscopy. Drink the rest of prep at 4am the day of the colonoscopy. * dofetilide (Tikosyn) 500 MCG capsule(Started 10/02/2023) Take 1 (one) capsule by mouth 2 times daily 11 refills by 10/01/2024 * amoxicillin (Amoxil) 500 MG capsule(Started 10/02/2023) Take 4 capsules 2 hours before dental procedure. Active Problems Problem Noted Date Diagnosed Date HTN (hypertension) 03/08/2021 Lupus anticoagulant positive 03/08/2021 Subdural hematoma 03/08/2021 Longstanding persistent atrial fibrillation 11/07 Vitamin D [...] Venous insufficiency (chronic) (peripheral) 02/06 A-fib 05/02/2011 Resolved Problems Problem Noted Date Diagnosed Date Resolved Date DVT (deep venous thrombosis) 06/05/2014 Fluttering heart 06/05/2014 Immunizations * INFLUENZA VACCINE(Given 06/28/2022) * INFLUENZA VACCINE, ADJUVANTED, QUADR. (FLUAD QUADRIVALENT; 65Y+) (AIIV4)(Given 05/16/2020) * INFLUENZA VACCINE, HIGH-DOSE, QUADR. (FLUZONE HIGH-DOSE QUADRIVALENT; 65Y+), 0.7 ML (HD-IIV4)(Given 06/10/2019) * Influenza Pf Intradermal (ADULT)(Given 06/11/2013) Social History Tobacco Use Types Packs/Day Years [...] Comments Blood Pressure 150/90 08/19/2024 9:49 AM INTERVENTIONAL RADIOLOGY RN Pulse 78 08/19/2024 9:49 AM INTERVENTIONAL RADIOLOGY RN Temperature 36.8 C (98.2 F) 07/14/2024 10:46 AM INTERVENTIONAL RADIOLOGY RN Respiratory Rate 18 07/14/2024 10:46 AM INTERVENTIONAL RADIOLOGY RN Oxygen Saturation 97% 08/19/2024 9:49 AM INTERVENTIONAL RADIOLOGY RN Inhaled Oxygen Concentration - - Weight 98.9 kg (218 lb) 08/19/2024 9:49 AM INTERVENTIONAL RADIOLOGY RN Height 193 cm (6' 4 ) 08/19/2024 9:49 AM INTERVENTIONAL RADIOLOGY RN Body Mass Index 26.54 08/19/2024 9:49 AM INTERVENTIONAL RADIOLOGY RN Medical Devices Implanted Type Area Administrative Services Specialist Device Identifier Shelf Expiration Date Model / Serial / Lot Mesh Srg Ultrapro 4.7x2.4in Lg [place] Implanted:Qty: 1 on 08/03/2018 by Lionel Bee MD at [facility] Right: [employer]in [employer] 02/06/2020 [facility] / / [id number] Description:DOCUMENTED BY Julianne Harrison Procedures * BASIC METABOLIC PANEL (CALCIUM TOTAL)(Performed 09/10/2024) Performed for Atypical atrial flutter (HCC) * EKG 12-LEAD(Performed 08/19/2024) Performed for Atypical atrial flutter (HCC) * CBC W AUTO DIFFERENTIAL(Performed 06/30/2024) Performed for 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 (HCC) * COMPREHENSIVE METABOLIC PANEL(Performed 06/30/2024) Performed for 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 (HCC) * CBC W AUTO DIFFERENTIAL(Performed 12/24/2023) Performed for 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 (HCC) * COMPREHENSIVE METABOLIC PANEL(Performed 12/24/2023) Performed for 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 (HCC) * EKG 12-LEAD(Performed 10/02/2023) Performed for Persistent atrial fibrillation (HCC) * VAS BILATERAL VENOUS DUPLEX LE(Performed 08/13/2023) Performed for 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 (HCC) * PTT [facility](Performed 08/13/2023) Performed for Venous insufficiency (chronic) (peripheral) * PT-INR [facility](Performed 08/13/2023) Performed for Venous insufficiency (chronic) (peripheral) * CBC W AUTO DIFFERENTIAL(Performed 08/13/2023) Performed for Venous insufficiency (chronic) (peripheral) * COMPREHENSIVE METABOLIC PANEL(Performed 08/13/2023) Performed for Venous insufficiency (chronic) (peripheral) * PTT [facility](Performed 07/01/2023) Performed for 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 (HCC), Anticoagulation management encounter * PT-INR [facility](Performed 07/01/2023) Performed for 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 (HCC), Anticoagulation management encounter * COMPREHENSIVE METABOLIC PANEL(Performed 07/01/2023) Performed for 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 (HCC), Anticoagulation management encounter * CBC W AUTO DIFFERENTIAL(Performed 07/01/2023) Performed for 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 (HCC), Anticoagulation management encounter * EKG 12-LEAD(Performed 02/14/2023) Performed for Persistent atrial fibrillation (HCC) * PTT [facility](Performed 08/23/2022) Performed for 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 (HCC), Thrombophilia (HCC), Anticoagulation management encounter * PT-INR [facility](Performed 08/23/2022) Performed for 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 (HCC), Thrombophilia (HCC), Anticoagulation management encounter * COMPREHENSIVE METABOLIC PANEL(Performed 08/23/2022) Performed for 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 (HCC), Thrombophilia (HCC), Anticoagulation management encounter * CBC W AUTO DIFFERENTIAL(Performed 08/23/2022) Performed for 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 (HCC), Thrombophilia (HCC), Anticoagulation management encounter * PROTEIN C ACTIVITY(Performed 05/31/2022) Performed for 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 (HCC) * LUPUS ANTICOAGULANT PANEL(Performed 05/06/2022) Performed for Thrombophilia (HCC), Chronic deep vein thrombosis (DVT) of femoral vein of both lowerextremities (HCC) * HEXAGONAL PHOSPHOLIPID NEUTRALIZATION(Performed 05/06/2022) Performed for Thrombophilia (HCC), Chronic deep vein thrombosis (DVT) of femoral vein of both lowerextremities (HCC) * BETA-2 GLYCOPROTEIN 1 ANTIBODY IGG/IGM PANEL(Performed 05/06/2022) Performed for Thrombophilia (HCC), Chronic deep vein thrombosis (DVT) of femoral vein of both lowerextremities (HCC) * FACTOR V LEIDEN MUTATION PANEL(Performed 05/06/2022) Performed for Thrombophilia (HCC), Chronic deep vein thrombosis (DVT) of femoral vein of both lowerextremities (HCC) * PROTHROMBIN [id number] PANEL(Performed 05/06/2022) Performed for Thrombophilia (HCC), Chronic deep vein thrombosis (DVT) of femoral vein of both lowerextremities (HCC) * COMPREHENSIVE METABOLIC PANEL(Performed 05/06/2022) Performed for Thrombophilia (HCC), Chronic deep vein thrombosis (DVT) of femoral vein of both lowerextremities (HCC) * CBC W AUTO DIFFERENTIAL(Performed 05/06/2022) Performed for Thrombophilia (HCC), Chronic deep vein thrombosis (DVT) of femoral vein of both lowerextremities (HCC) * BETA-2 GLYCOPROTEIN 1 ANTIBODY IGA(Performed 05/06/2022) Performed for Thrombophilia (HCC), Chronic deep vein thrombosis (DVT) of femoral vein of both lowerextremities (HCC) * ANTITHROMBIN III ACTIVITY(Performed 05/06/2022) Performed for Thrombophilia (HCC), Chronic deep vein thrombosis (DVT) of femoral vein of both lowerextremities (HCC) * CARDIOLIPIN ANTIBODY IGM(Performed 05/06/2022) Performed for Thrombophilia (HCC), Chronic deep vein thrombosis (DVT) of femoral vein of both lowerextremities (HCC) * CARDIOLIPIN ANTIBODY IGG(Performed 05/06/2022) Performed for Thrombophilia (HCC), Chronic deep vein thrombosis (DVT) of femoral vein of both lowerextremities (HCC) * LAB MISC TEST(Performed 05/06/2022) Performed for Thrombophilia (HCC), Chronic deep vein thrombosis (DVT) of femoral vein of both lowerextremities (HCC) * PROTEIN C ACTIVITY(Performed 05/06/2022) Performed for Thrombophilia (HCC), Chronic deep vein thrombosis (DVT) of femoral vein of both lowerextremities (HCC) * IMAGING/RADIOLOGY/XRAY RESULTS ORDER(Performed 04/01/2022) * IMAGING/RADIOLOGY/XRAY RESULTS ORDER(Performed 03/27/2022) * PROC EKG IN CLINIC(Performed 03/01/2022) Performed for Atypical atrial flutter (HCC) * PROC EKG IN CLINIC(Performed 08/23/2021) Performed for Persistent atrial fibrillation (HCC) * CARDIAC EKG ORDER(Performed 04/03/2021) * CARDIAC EKG ORDER(Performed 11/28/2020) * CARDIAC EKG ORDER(Performed 08/29/2020) * PROC EKG IN CLINIC(Performed 08/24/2020) Performed for Status post Maze operation for atrial fibrillation * CARDIAC RHYTHM STRIP ORDER(Performed 08/05/2018) * ENDOTRACHEAL TUBE NOTE(Performed 08/03/2018) * REPAIR INGUINAL HERNIA(Performed 08/03/2018) Performed for Diagnosis unknown * EKG 12-LEAD(Performed 07/29/2018) Performed for Pre-op testing * XR CHEST 2VW(Performed 07/29/2018) Performed for Pre-op testing * COMPREHENSIVE METABOLIC PANEL(Performed 07/29/2018) Performed for Pre-op testing * CBC W AUTO DIFFERENTIAL(Performed 07/29/2018) Performed for Pre-op testing * CARDIAC HOLTER MONITOR ORDER(Performed 02/25/2014) * D-DIMER(Performed 09/14/2012) * D-DIMER(Performed 08/03/2012) * PT-INR [facility](Performed 11/14/2011) * D-DIMER(Performed 11/14/2011) * PTT [facility](Performed 11/14/2011) * LUPUS ANTICOAGULANT PANEL(Performed 11/14/2011) * CBC W AUTO DIFFERENTIAL(Performed 11/14/2011) * PT-INR [facility](Performed 10/17/2011) * PTT [facility](Performed 10/17/2011) * D-DIMER(Performed 10/17/2011) * CBC W AUTO DIFFERENTIAL(Performed 10/17/2011) * URINALYSIS AUTO - POINT OF CARE(Performed 06/07/2010) Performed for Routine general medical examination at a health care facility Results * (ABNORMAL) BASIC METABOLIC PANEL (CALCIUM TOTAL) (09/10/2024 7:13 AM INTERVENTIONAL RADIOLOGY RN) Pathologist [facility] Glucose 100(H) 65 - 99 mg/dL [facility] [...] mL/min/1. 73m2 [facility] BUN/Creatinine Ratio SEE NOTE: 6 - (calc) [facility] Comment: Not Reported: BUN and Creatinine are within reference range. Sodium 141 135 - 146 mmol/L [facility] Potassium 4.5 3.5 - 5.3 mmol/L [facility] Chloride 105 98 - 110 mmol/L [facility] CO2 29 20 - 32 mmol/L [facility] Calcium 9.0 8.6 - 10.3 mg/dL [facility] Comment: Test Performed at: [facility] [address] DERIC JEAN BAPTISTE MD Blood BLOOD SPECIMEN / Unknown 09/10/2024 7:13 AM INTERVENTIONAL RADIOLOGY RN 09/10/2024 7:14 AM INTERVENTIONAL RADIOLOGY RN Blayne Clarke MD LAB - CHEMISTRY [facility]AD [place] [address] [address] * EKG 12-LEAD (08/19/2024 9:58 AM INTERVENTIONAL RADIOLOGY RN) Only the most recent of4 resultswithin the time period is included. Pathologist [facility] Ventricular Rate 75 BPM [facility] Atrial Rate 75 BPM [facility] P-R Interval 186 ms [facility] QRS Duration ms 90 ms [facility] Q-T Interval ms 436 ms [facility] QTC Calculation (Bezet) 486 ms [facility] Calculated P [place] 92 degrees [facility] Calculated R [place] 1 degrees [facility] Calculated T [place] 41 degrees [facility] Interpretation EKG NORMAL SINUS RHYTHM PROLONGED QT ABNORMAL ECG WHEN COMPARED WITH ECG OF 02-OCT-2023 14:47, ABERRANT CONDUCTION IS NO LONGER PRESENT Confirmed by fellow NIKA TRAMMELL MD ([id number]) on 08/26/2024 8:40:07 AM Confirmed by BLAYNE CLARKE MD ([id number]) on 08/28/2024 2:13:35 PM [facility] 08/19/2024 9:58 AM INTERVENTIONAL RADIOLOGY RN 08/28/2024 2:13 PM INTERVENTIONAL RADIOLOGY RN Blayne Clarke MD ECG ORDERABLES [facility] * (ABNORMAL) CBC WITH DIFFERENTIAL (06/30/2024 2:46 PM CDT) Only the most recent of9 resultswithin the time period is included. WBC 5.0 4.0 - 10.7 x10E9/L 06/30/2024 3:05 PM [facility] RBC Count 4.25(L) 4.30 - 5.80 x10E12/L 06/30/2024 3:05 PM [facility] Hemoglobin 14.4 13.3 - 17.5 g/dL 06/30/2024 3:05 PM [facility] Hematocrit 40.9 38.7 - 51.1 % 06/30/2024 3:05 PM [facility] MCV 96.2 80.0 - 98.0 fL 06/30/2024 3:05 PM [facility] MCH 33.9(H) 26.7 - 33.6 pg 06/30/2024 3:05 PM [facility] MCHC 35.2 31.7 - 36.3 g/dL 06/30/2024 3:05 PM [facility] RDW-CV 13.5 11.3 - 14.8 % 06/30/2024 3:05 PM [facility] Platelet Count 145(L) 150 - 420 x10E9/L 06/30/2024 3:05 PM [facility] MPV 9.8 7.8 - 11.4 fL 06/30/2024 3:05 PM [facility] Preliminary Absolute Neutrophil 3.63 1.60 - 7.50 x10E9/L 06/30/2024 3:05 PM [facility] Neutrophil % 72.6 41.0 - 74.0 % 06/30/2024 3:05 PM [facility] Lymphocyte % 17.2 17.0 - 47.0 % 06/30/2024 3:05 PM [facility] Monocyte % 7.6 3.0 - 11.0 % 06/30/2024 3:05 PM [facility] Eosinophil % 1.2 0.0 - 7.0 % 06/30/2024 3:05 PM [facility] Basophil % 1.0 0.0 - 1.6 % 06/30/2024 3:05 PM [facility] Immature Granulocytes % 0.4 0.0 - 1.0 % 06/30/2024 3:05 PM [facility] Neutrophil Absolute 3.63 1.60 - 7.50 x10E9/L 06/30/2024 3:05 PM [facility] Lymphocyte Absolute 0.86(L) 1.00 - 4.40 x10E9/L 06/30/2024 3:05 PM [facility] Monocyte Absolute 0.38 0.15 - 1.00 x10E9/L 06/30/2024 3:05 PM [facility] Eosinophil Absolute 0.06 0.00 - 0.60 x10E9/L 06/30/2024 3:05 PM [facility] Basophil Absolute 0.05 0.00 - 0.13 x10E9/L 06/30/2024 3:05 PM [facility] Blood BLOOD SPECIMEN / Unknown Venipuncture / Unknown 06/30/2024 2:46 PM CDT 06/30/2024 2:58 PM CDT Malaika Wolf MD LAB - HEMATOLOGY ORD ERABLES [facility] [address] [place] [address], [facility] [phone] * (ABNORMAL) COMPREHENSIVE METABOLIC PANEL (06/30/2024 2:46 PM CDT) Only the most recent of7 resultswithin the time period is included. BUN 16 7 - 26 mg/dL 06/30/2024 3:30 PM [facility] Creatinine 0.85 0.71 - 1.16 mg/dL 06/30/2024 3:30 PM [facility] Sodium 142 136 - 145 mmol/L 06/30/2024 3:30 PM [facility] Potassium 4.1 3.5 - 4.5 mmol/L 06/30/2024 3:30 PM [facility] Comment:Hemolysis detected i n this specimen. Hemolysis may cause false elevations in potassium leading to pseudohyperkalemia or masked hypokalemia. Recommend repeat testing if clinically indicated. Chloride 107 98 - 107 mmol/L 06/30/2024 3:30 PM [facility] CO2 27 22 - 29 mmol/L 06/30/2024 3:30 PM [facility] Glucose 110 70 - 115 mg/dL 06/30/2024 3:30 PM [facility] Calcium 9.6 8.4 - 10.2 mg/dL 06/30/2024 3:30 PM [facility] Protein Total 7.0 6.0 - 8.3 g/dL 06/30/2024 3:30 PM [facility] Comment:Hemolysis detected i n this specimen. Hemolysis is known to cause elevations in this analyte. Caution should be exercised in the interpretation of this result. Recommend repeat testing if clinically indicated. Albumin 4.0 3.4 - 5.0 g/dL 06/30/2024 3:30 PM [facility] Bilirubin Total 1.1 0.2 - 1.2 mg/dL 06/30/2024 3:30 PM [facility] Alkaline Phosphatase 75 40 - 150 U/L 06/30/2024 3:30 PM [facility] ALT 17 5 - 55 U/L 06/30/2024 3:30 PM [facility] AST 30 5 - 34 U/L 06/30/2024 3:30 PM T [facility] Comment:Hemolysis detected i n this specimen. Hemolysis is known to cause elevations in this analyte. Caution should be exercised in the interpretation of this result. Recommend repeat testing if clinically indicated. Anion Gap 8 6 - 16 06/30/2024 3:30 PM [facility] BUN/Creatinine Ratio 19 7 - 23 102 11/2023 3:30 PM [facility] Osmolality Calculated 296(H) 275 - 295 mOsm/kg 06/30/2024 3:30 PM T [facility] Albumin/Globulin Ratio 1.3 1.1 - 2.3 3:30 PM [facility] eGFR by CKD-EPI >90 >=90 mL/min/1. 73 m2 06/30/2024 3:30 PM [facility] Blood BLOOD SPECIMEN / Unknown Venipuncture / Unknown 06/30/2024 2:46 PM CDT 06/30/2024 2:58 PM CDT Malaika Wolf MD LAB - CHEMISTRY [facility]AD [facility] Organization Address City/State/ZIP Co de Phone Number [address] [address], [facility] [phone] * VAS BILATERAL VENOUS DUPLEX LE (08/13/2023 3:15 PM INTERVENTIONAL RADIOLOGY RN) Anatomical Region Laterality Modality Lower Extremity Intravascular Ul trasound 08/13/2023 2:46 PM INTERVENTIONAL RADIOLOGY RN Narrative Procedure Note Carmine Gonzales MD - 08/15/2023 Malaika Wolf MD VASCULAR LAB ORDERAB LES * PTT [facility] (08/13/2023 12:11 PM INTERVENTIONAL RADIOLOGY RN) Only the most recent of5 resultswithin the time period is included. APTT 34.6 23.0 - 38.4 Seconds 08/13/2023 1:57 PM INTERVENTIONAL RADIOLOGY RN [facility] Comment:Suggested therapeuti c range for full dose I.V. unfractionated heparin therapy for venous thromboembolism is 71 to 109 seconds. Blood BLOOD SPECIMEN / Unknown Venipuncture / Unknown 08/13/2023 12:11 PM INTERVENTIONAL RADIOLOGY RN 08/13/2023 1:14 PM INTERVENTIONAL RADIOLOGY RN Malaika Wolf MD LAB - COAGULATION OR DERABLES Performing Organization Address [facility] de Phone Number [facility] [address] [place] [address], [facility] [phone] * PT-INR [facility] (08/13/2023 12:11 PM INTERVENTIONAL RADIOLOGY RN) Only the most recent of5 resultswithin the time period is included. PT 13.4 12.1 - 14.8 Seconds 08/13/2023 1:57 PM INTERVENTIONAL RADIOLOGY RN [facility] INR 1.1 See Comment 08/13/2023 1:57 PM INTERVENTIONAL RADIOLOGY RN [facility] Comment:The suggested therap eutic range for standard coumadin (warfarin) therapy is an INR of 2.0-3.0. For high-risk patients (Mechanical Mitral Valve Prosthesis, etc.), the suggested prophylactic therapeutic range is an INR of 2.5-3.5. Blood BLOOD SPECIMEN / Unknown Venipuncture / Unknown 08/13/2023 12:11 PM INTERVENTIONAL RADIOLOGY RN 08/13/2023 1:14 PM INTERVENTIONAL RADIOLOGY RN Malaika Wolf MD LAB - COAGULATION OR DERABLES Performing Organization Address City/[facility] de Phone Number [facility] [address] [place] [address], [facility] [phone] * (ABNORMAL) PROTEIN C ACTIVITY (05/31/2022 10:17 AM CDT) Only the most recent of2 resultswithin the time period is included. Protein C Activity 74(L) 83 - 168 % 06/06/2022 12:01 AM CDT [facility] ([facility]) Comment: INTERPRETIVE INFORMATION: Protein C, Functional Patients on warfarin may have decreased protein C values. Patients should be off warfarin therapy for two weeks for accurate measurement of protein C levels. Artificially increased functional protein C values may be due to heparin therapy or the presence of direct thrombin inhibitors or factor Xa inhibitors. Access complete set of age- and/or gender-specific reference intervals for this test in the [facility] ([facility]). Performed by [email or web address], [address] [place], [place] [id number] [email or web address], Ravinder Canales MD, PHD, Lab. Director Blood BLOOD SPECIMEN / Unknown Lab Venipuncture / Unknown 05/31/2022 10:17 AM CDT 05/31/2022 10:22 AM CDT Fernanda Ferraro MD LAB - COAGULA TION ORDERABLES Performing Organization Address [facility] de Phone Number [facility]) [address] [place] [address] * HEXAGONAL PHOSPHOLIPID NEUTRALIZATION (05/06/2022 10:07 AM CDT) [facility] Hexagonal Phospholipid Neutral Negative Negative 05/09/2022 11:30 PM CDT [facility] ([facility]) Comment: A lupus anticoagulant is not detected in the hexagonal phase phospholipid neutralization assay. Lupus anticoagulant antibodies are heterogeneous and laboratory tests used to identify them demonstrate variable sensitivity. No single test will identify all lupus anticoagulant antibodies. The International Society on Thrombosis and Haemostasis recommends using two or more tests, based on different assay principles, to screen for a lupus anticoagulant before the diagnosis is excluded (Thromb Haemost 1995;74:1185-90). Test results should be interpreted in the context of clinical presentation. Performed by [facility], [address] [place], [place] [id number] [email or web address], Ravinder Canales MD, PHD, Lab. Director Blood BLOOD SPECIMEN / Unknown Lab Venipuncture / Unknown 05/06/2022 10:07 AM CDT 05/06/2022 10:28 AM CDT Fernanda Ferraro MD LAB - COAGULA TION ORDERABLES Performing Organization Address [facility] Co de Phone Number [facility]) [address] [place] [address] * LAB MISC TEST (05/06/2022 10:07 AM CDT) Pathologist [facility] Test Name Protein S Antigen Free 05/09/2022 9:00 AM CDT [facility] Test Result See Scanned Report 05/09/2022 9:00 AM CDT [facility] Comment Ref Lab [facility] 05/09/2022 9:00 AM CDT [facility] Blood BLOOD SPECIMEN / Unknown Lab Venipuncture / Unknown 05/06/2022 10:07 AM CDT 05/06/2022 10:29 AM CDT Fernanda Ferraro MD LAB SEND OUT [facility] [address] [place] [address] * (ABNORMAL) LUPUS ANTICOAGULANT PANEL (05/06/2022 10:07 AM CDT) Only the most recent of2 resultswithin the time period is included. Pathologist [facility] APTT 44.3(H) 23.0 - 38.4 Seconds 05/07/2022 9:19 AM [facility] PT 18.6(H) 12.1 - 14.8 Seconds 05/07/2022 9:19 AM [facility] INR 1.6 See Comment 05/07/2022 9:19 AM [facility] Buffer 59.9 Seconds 022 9:19 AM [facility] Phospholipid 55.8 Seconds 05/07/2022 9:19 AM [facility] Delta 4.1 <8.0 Seconds 05/07/2022 9:19 AM [facility] Interpretation [facility] Negative 05/07/2022 9:19 AM [facility] Comment:Up to 15-20% of kenny ents with lupus anticoagulant associated with antiphospholipid antibody syndrome (APAS) will have negative [facility] results. For these patients we recommend additional testing to include the Dilute Haja Viper Venom Time (DRVVT) test. Immunoassay measurements of anti-cardiolipin and anti-beta-2 glycoprotein 1 are recommended if the DRVVT, and STACLOT-LA tests are negative and there is clinical suspicion of APAS. Blood BLOOD SPECIMEN / Unknown Lab Venipuncture / Unknown 05/06/2022 10:07 AM CDT 05/06/2022 11:03 AM CDT [facility]RELL[facility] LAB - HEMATOL OGY ORDERABLES [facility] [address] [place] [address], [facility] [phone] * PROTHROMBIN [id number] PANEL (05/06/2022 10:07 AM CDT) Prothrombin [id number] Negative 05/09/2022 12:31 PM CDT [facility] ([facility]) Comment: Indication for testing: Assess genetic risk for thrombosis. NEGATIVE: The Factor II, prothrombin [id number] mutation, was not detected. Other causes of elevated prothrombin levels and hereditary forms of venous thrombosis have not been excluded. Recommendations: If clinically indicated, testing for other inherited or acquired thrombophilic disorders is recommended including DNA testing for the factor V Leiden mutation, measurement of total plasma homocysteine concentration, serological assays for anticardiolipin antibodies, multiple phospholipid-dependent coagulation assays for lupus inhibitor, protein C activity, protein S activity or free protein S antigen, and antithrombin activity. This result has been reviewed and approved by Paty Rodriguez, Ph.D. 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 The expression of Factor II thrombophilia is impacted by coexisting genetic thrombophilic disorders, acquired thrombophilic disorders (eg, malignancy, hyperhomocysteinemia, high factor VIII levels), and circumstances including: , oral contraceptive use, hormone replacement therapy, selective estrogen receptor modulators, travel, central venous catheters, surgery, and organ transplantation. INCIDENCE: Approximately 2 percent of Caucasians and 0.3 percent of Americans are heterozygous; homozygosity occurs in 1 in 10,000 individuals. INHERITANCE: Incomplete autosomal dominant. PENETRANCE: The risk of thrombosis is increased 2-4 fold for heterozygotes and further increased for homozygotes. 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 PATHOGENIC VARIANT TESTED: F2 c.*97G>A (I50864A). CLINICAL SENSITIVITY FOR VENOUS THROMBOSIS: Approximately 10 percent. METHODOLOGY: Polymerase chain reaction and fluorescence monitoring. ANALYTICAL SENSITIVITY AND SPECIFICITY: 99 percent. LIMITATIONS: Diagnostic errors can occur due to rare sequence variations. F2 gene variants, other than c.*97G>A (M35391R), will not be detected. This test was developed and its performance characteristics determined by [facility]. It has not been cleared or approved by the US Food and Drug Administration. This test was performed in a CLIA certified laboratory and is intended for clinical purposes. Counseling and informed consent are recommended for genetic testing. Consent forms are available online. Performed by [facility], [address] [place] [address] [email or web address], Ravinder Canales MD, PHD, Lab. Director Source PT [id number] PCR Whole Blood 05/09/2022 12:31 PM CDT [facility]) Blood BLOOD SPECIMEN / Unknown Lab Venipuncture / Unknown 05/06/2022 10:07 AM CDT 05/06/2022 10:28 AM CDT Pairote Ronan ORELLANA LAB - COAGULA TION ORDERABLES [facility]) [address] * FACTOR V LEIDEN MUTATION PANEL (05/06/2022 10:07 AM CDT) [facility] Factor V Leiden Source Whole Blood 05/09/2022 5:19 PM CDT [facility] ([facility]) Factor V Leiden PCR/FRET Negative 05/09/2022 5:19 PM CDT [facility]) Comment: Indication for testing: Assess genetic risk for thrombosis. NEGATIVE: The factor V Leiden variant, c.1601G>A; p.[id number], was not detected. This does not exclude a genetic cause for thrombophilia. If this individual has had a previous venous thromboembolism, this negative result is unlikely to significantly reduce the risk for recurrence; thus, future clinical management to reduce recurrence should not be altered. This result has been reviewed and approved by Paty Rodriguez, Ph.D. BACKGROUND INFORMATION: Factor V Leiden (F5) R506Q Mutation CHARACTERISTICS: Venous thromboembolism (VTE) is multifactorial caused by a combination of genetic and environmental factors. The Factor V Leiden (FVL) variant is the most common cause of inherited VTEs, accounting for over 90 percent of activated protein C (APC) resistance. Because the FVL variant eliminates the APC cleavage site, factor V is inactivated slower, thus persisting longer in blood circulation, leading to more thrombin production. Other genetic risk factors for VTE include, male sex and variants in antithrombin, protein C, protein S, or factor XIII. Non-genetic risk factors include, age, smoking, prolonged immobilization, malignant neoplasms, surgery, , oral contraceptives, estrogen replacement therapy, tamoxifen and raloxifene therapy. INCIDENCE OF FACTOR V LEIDEN VARIANT: Approximately 5 percent of Caucasians, 2 percent of Hispanics, 1 percent of Americans and 0.5 percent of Asians are heterozygous; homozygosity occurs in 1 in 1500 Caucasians. INHERITANCE: Semi-dominant; both heterozygotes and homozygotes are at increased risk for VTE. PENETRANCE: Lifetime risk of VTE is 10 percent for heterozygotes and 80 percent of homozygotes. 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 Legacy nomenclature: R506Q (1691G>A) CLINICAL SENSITIVITY: 20-50 percent of individuals with an isolated VTE have the FVL variant. METHODOLOGY: Polymerase chain reaction and fluorescence monitoring. ANALYTICAL SENSITIVITY AND SPECIFICITY: 99 percent. LIMITATIONS: Diagnostic errors can occur due to rare sequence variations. F5 gene mutations, other than p.[id number], will not be detected. This test was developed and its performance characteristics determined by [facility]. It has not been cleared or approved by the US Food and Drug Administration. This test was performed in a CLIA certified laboratory and is intended for clinical purposes. Counseling and informed consent are recommended for genetic testing. Consent forms are available online. Performed by [facility], [address] [place] [address],[place] [address] [email or web address], Ravinder Canales MD, PHD, Lab. Director Blood BLOOD SPECIMEN / Unknown Lab Venipuncture / Unknown 05/06/2022 10:07 AM CDT 05/06/2022 10:28 AM CDT Fernanda Ferraro MD LAB - COAGULA TION ORDERABLES [facility]) [address] [place] [address], [facility] * CARDIOLIPIN ANTIBODY IGM (05/06/2022 10:07 AM CDT) [facility] Cardiolipin Antibody IgM 12 <=12 MPL 05/07/2022 5:35 PM CDT [facility] ([facility]) Comment: INTERPRETIVE INFORMATION: Anti-Cardiolipin IgM <=12 MPL: Negative 13-19 MPL: Indeterminate 20-80 MPL: Low to Moderately Positive 81 MPL or above: High Positive The persistent presence of IgG and/or IgM cardiolipin (CL) antibodies in moderate or high levels (greater than 40 GPL and/or greater than 40 MPL units) is a laboratory criterion for the diagnosis of antiphospholipid syndrome (APS). Persistence is defined as moderate or high levels of IgG and/or IgM CL antibodies detected in two or more specimens drawn at least 12 weeks apart (J Throm Haemost. 2006;4:295-306). Lower positive levels of IgG and/or IgM CL antibodies (above cutoff but less than 40 GPL and/or less than 40 MPL units) may occur in patients with the clinical symptoms of APS; therefore, the actual significance of these levels is undefined. Results should not be used alone for diagnosis and must be interpreted in light of APS-specific clinical manifestations and/or other criteria phospholipid antibody tests. Performed By: [facility] [address] [place] [address] Chemical Laboratory Scientist: Ravinder Canales MD, PhD Blood BLOOD SPECIMEN / Unknown Lab Venipuncture / Unknown 05/06/2022 10:07 AM CDT 05/06/2022 10:27 AM CDT Pairote Jaroonwanichkul MD LAB - SEROLOG Y ORDERABLES Performing Organization Address City/[facility]/ZIP Co de Phone Number [facility]) [address] [place] [address] * CARDIOLIPIN ANTIBODY IGG (05/06/2022 10:07 AM CDT) Cardiolipin Antibody IgG <10 <=14 GPL 05/07/2022 5:35 PM CDT [facility] ([facility]) Comment: INTERPRETIVE INFORMATION: Anti-Cardiolipin IgG Ab <=14 GPL: Negative 15-19 GPL: Indeterminate 20-80 GPL: Low to Moderately Positive 81 GPL or above: High Positive The persistent presence of IgG and/or IgM cardiolipin (CL) antibodies in moderate or high levels (greater than 40 GPL and/or greater than 40 MPL units) is a laboratory criterion for the diagnosis of antiphospholipid syndrome (APS). Persistence is defined as moderate or high levels of IgG and/or IgM CL antibodies detected in two or more specimens drawn at least 12 weeks apart (J Throm Haemost. 2006;4:295-306). Lower positive levels of IgG and/or IgM CL antibodies (above cutoff but less than 40 GPL and/or less than 40 MPL units) may occur in patients with the clinical symptoms of APS; therefore, the actual significance of these levels is undefined. Results should not be used alone for diagnosis and must be interpreted in light of APS-specific clinical manifestations and/or other criteria phospholipid antibody tests. Performed By: [facility] [address] [place] [address] Chemical Laboratory Scientist: Ravinder Canales MD, PhD Blood BLOOD SPECIMEN / Unknown Lab Venipuncture / Unknown 05/06/2022 10:07 AM CDT 05/06/2022 10:27 AM CDT Fernanda Ferraro MD LAB - SEROLOG Y ORDERABLES [facility]) [address] [place] [address] * BETA-2 GLYCOPROTEIN 1 ANTIBODY IGA (05/06/2022 10:07 AM CDT) Beta-2 Glycoprotein Antibody IgA <10 <=20 TEJA 05/07/2022 8:48 PM CDT [facility] ([facility]) Comment: Performed By: [facility] [address] [place] [address] Chemical Laboratory Scientist: Ravinder Canales MD, PhD Blood BLOOD SPECIMEN / Unknown Lab Venipuncture / Unknown 05/06/2022 10:07 AM CDT 05/06/2022 10:28 AM CDT Pairote Ronan ORELLANA LAB - SEROLOG Y ORDERABLES [facility]) [address] [place] [address], [facility] * BETA-2 GLYCOPROTEIN 1 ANTIBODY IGG/IGM PANEL (05/06/2022 10:07 AM CDT) Beta-2 Glycoprotein Antibody IgG <10 <=20 SGU 05/08/2022 5:12 PM CDT [facility] ([facility]) Beta-2 Glycoprotein Antibody IgM <10 <=20 SMU 05/08/2022 5:12 PM CDT [facility] ([facility]) Comment: INTERPRETIVE INFORMATION: B9Hphtlnpjzutm I, IgG and IgM Antibody The persistent presence of IgG and/or IgM beta 2 glycoprotein I (B2GPI) antibodies is a laboratory criterion for the diagnosis of antiphospholipid syndrome (APS). Persistence is defined as moderate or high levels of IgG and/or IgM B2GPI antibodies detected in two or more specimens drawn at least 12 weeks apart (J Throm Haemost. 2006;4:295-306). B2GPI results greater than 20 SGU (IgG) and/or SMU (IgM) are considered positive based on the cutoff values established for this test. International reference materials and consensus units for anti-B2GPI antibodies have not been established (Clin Glo Acta. 2012;413(1-2):358-60; Arthritis Rheum. 2012;64(1):1-10.); results can be variable between different commercial immunoassays and cannot be compared. Strong clinical correlation is recommended for a diagnosis of APS. Low positive IgG and IgM B2GPI antibody levels should be interpreted in light of APS-specific clinical manifestations and/or other criteria phospholipid antibody tests. Performed By: [facility] [address] [place] [address] Chemical Laboratory Scientist: Ravinder Canales MD, PhD Blood BLOOD SPECIMEN / Unknown Lab Venipuncture / Unknown 05/06/2022 10:07 AM CDT 05/06/2022 10:28 AM CDT Fernanda Ferraro MD LAB - FOOD CART ATTENDANT RY ORDERABLES Performing Organization Address [facility] de Phone Number [facility] ([facility]) [address] [place], [place] [address] * ANTITHROMBIN III ACTIVITY (05/06/2022 10:07 AM CDT) Antithrombin III Activity 96.0 80.0 - 120.0 % 05/06/2022 12:32 PM CDT [facility] Blood BLOOD SPECIMEN / Unknown Lab Venipuncture / Unknown 05/06/2022 10:07 AM CDT 05/06/2022 11:03 AM CDT Narrative [facility] - 05/06/2022 12:32 PM CDT Thrombin inhibitors (i.e., hirudin, argatroban...) present in the sample to be tested may lead to an over-estimation of the AT level. Fernanda Ferraro MD LAB - COAGULA TION ORDERABLES Performing Organization Address [facility] Co de Phone Number [address] [address], [facility] [phone] * IMAGING RADIOLOGY XRAY RESULTS ORDER (04/01/2022) Only the most recent of2 resultswithin the time period is included. Anatomical Region Laterality Modality Other 04/01/2022 Narrative 04/01/2022 Ordered by an unspecified provider. Scanned Document IMAGING * EKG - Clinic Performed (03/01/2022 3:52 PM CDT) Only the most recent of3 resultswithin the time period is included. Blayne Clarke MD ECG ORDERABLES * CARDIAC EKG ORDER (04/03/2021) Only the most recent of3 resultswithin the time period is included. Narrative 04/03/2021 Ordered by an unspecified provider. Scanned Document CARDIAC SERVICES ORD ERABLES * CARDIAC RHYTHM STRIP ORDER (08/05/2018 3:13 PM INTERVENTIONAL RADIOLOGY RN) Narrative 08/05/2018 3:13 PM INTERVENTIONAL RADIOLOGY RN Ordered by an unspecified provider. Scanned Document CARDIAC SERVICES ORD ERABLES * XR CHEST 2VW (07/29/2018 7:47 AM INTERVENTIONAL RADIOLOGY RN) Anatomical Region Laterality Modality Chest Radiographic Dee ging 07/29/2018 8:31 AM INTERVENTIONAL RADIOLOGY RN Impressions 07/29/2018 8:32 AM INTERVENTIONAL RADIOLOGY RN Clear lungs. Reading Radiologist: Dionicio Mckee MD on 07/29/2018 at 8:32 AM Narrative 07/29/2018 8:32 AM INTERVENTIONAL RADIOLOGY RN Examination: Chest 2 views HISTORY:Preoperative chest radiograph FINDINGS: 2 views of the chest were performed without comparison. Radiopaque marker from a closure device overlies the mediastinum. The lungs are clear. There is no pleural effusion or pneumothorax. Heart size is normal. Procedure Note Dionicio Mckee MD - 07/29/2018 Examination: Chest 2 views HISTORY:Preoperative chest radiograph FINDINGS: 2 views of the chest were performed without comparison. Radiopaque marker from a closure device overlies the mediastinum. The lungs are clear. There is no pleural effusion or pneumothorax. Heart size is normal. IMPRESSION Clear lungs. Reading Radiologist: Dionicio Mckee MD on 07/29/2018 at 8:32 AM Lionel Bee MD DIAGNOSTIC IMAGING O RDERABLES * CARDIAC HOLTER MONITOR ORDER (02/25/2014) Amando Rooney DO CARDIAC SERVICES ORD ERABLES * (ABNORMAL) D-DIMER (09/14/2012 9:46 AM INTERVENTIONAL RADIOLOGY RN) Only the most recent of4 resultswithin the time period is included. D-Dimer Quantitative 3.03(H) 0.0 - 0.50 mcg/mL [facility] Comment: In the absence of clinical symptoms, a value less than or equal to 0.5 reliably excludes the diagnosis of acute PE/DVT 09/14/2012 9:46 AM INTERVENTIONAL RADIOLOGY RN 09/14/2012 10:04 AM INTERVENTIONAL RADIOLOGY RN Leroy Alejandre MD LAB - COAGULATION OR DERABLES [facility] [address] [phone] * URINALYSIS AUTO - POINT OF CARE (06/07/2010) Pathologist [facility] Clarity UA POCT CLEAR Color UA POCT YELLOW Leukocyte UA NEG Negative Nitrite UA POCT NEG Negative Urobilinogen UA POCT 1.0 0.1 - 1.0 EU/dL Protein UA POCT NEG Negative pH UA 7.5 5.0 - 8.0 pH units Blood UA NEG Negtive Specific [place] UA POCT 1.015 1.002 - 1.030 Ketone UA NEG Negative Bilirubin UA POCT NEG Negative Glucose UA NEG Negative Urine specimen (specimen) URINE / Unknown Amando Rooney DO LAB - POINT OF CARE ORDERABLES Care Teams Product Inspection Supervisor Relationship Specialty Start Date End Date Jeffry Novak MD [address] [place] [phone] PCP - General Family Medicine 09/29/23 Malaika Wolf MD [address] [place] [address] Physician Hematology and Oncology 09/10/23
--- OUTSIDE RECORDS SUMMARY | 2024-10-26 14:12 | XMS_ITS | Encounter Summary ---
Author Organization [facility] Address [address] [facility] [place] [address] Care Team Providers Care Roller Checker Name Role Phone Amando Rooney DO Primary Care Provider Sarath Edward MD Primary Care Provider [phone] Denny Polo DO Primary Care Provider [phone] Malaika Wolf MD Unavailable Jeffry Novak MD Primary Care Provider [phone] Encounter Details Date Type Department Care Team (Late st Contact Info) Description 01/09/2012 [facility] Outpatient Visit [id number] Amando Rooney DO [address] [place] [address] Social History Tobacco Use Types Packs/Day Years Used Date Smoking Tobacco: Never Assessed Sex and Gender Information Value Date Recorded Sex Assigned at Male 03/04/2022 6:00 PM CDT Gender Identity Male 03/04/2022 6:00 PM CDT Sexual Orientation Not on file documented as of this encounter Plan of Treatment Upcoming Encounters Date Type Department Care Team (Late st Contact Info) Description 12/29/2024 1:20 PM CDT Appointment [facility] [address] [place] [address] Malaika Wolf MD [address] [place] [address] 12/29/2024 2:20 PM CDT Appointment [facility] [address] [place] [address] Malaika Wolf MD [address] [place] [phone] 02/10/2025 10:00 AM CDT Office Visit [facility] - Cardiology [address] [facility], [address] [phone] Manuelito Clarke MD [address] [place] [address], [address] [address] documented as of this encounter Visit Diagnoses Not on filedocumented in this encounter Care Teams Roller Checker Relationship Specialty Start Date End Date Amando Rooney DO [address] [place] [phone] PCP - General Family Medicine 01/27/13 02/04/18 Sarath Edward MD [address] [place] [phone] PCP - General 02/05/18 08/23/20 Denny Polo DO [address] [address] PCP - General Internal Medicine 08/24/20 09/28/23 Jeffry Novak MD [address] [place] [id number] PCP - General Family Medicine 09/29/23 Malaika Wolf MD [facility] [place] [address] Physician Hematology and Oncology 09/10/23 documented as of this encounter
--- OUTSIDE RECORDS SUMMARY | 2024-10-26 14:12 | XMS_ITS | Clinical Summary ---
Author Organization [facility] Address [address] [place] [address] Care Team Providers Care Boot Maker Name Role Phone Denny Polo DO Primary Care Provider [phone] Social History Tobacco Use Types Packs/Day Years Used Date Smoking Tobacco: Never Assessed Sex and Gender Information Value Date Recorded Sex Assigned at Not on file Legal Sex Male 2:[address] Gender Identity Not on file Sexual Orientation Not on file Plan of Treatment Health Maintenance Due Date Last Done Comments Colorectal Cancer Screening Colonoscopy (10 Years) 1950 Hepatitis C 11/06/1969 DTaP, Tdap and Td Vaccines ( 1 - Tdap) 11/06/1970 Zoster Vaccines (1 of 2) 11/06/2001 Annual Medicare Wellness Visit 11/06/2016 Pneumococcal Vaccine: 65+ Years (1 of 1 - PCV) 11/06/2016 COVID-19 Vaccine ( - 2023-2 5 season) 2024 Influenza Adult (#1) 2024 06/28/2022, 06/10/2019, 06/11/2013 RSV Immunization or 60+ Years (1 - 1-dose 75+ series) 11/06/2026 Meningococcal B Vaccine Aged Out No l onger eligible based on patient's age to complete this topic Meningococcal Vaccine Aged Out No luda luz maria eligible based on patient's age to complete this topic RSV Immunizations Under 20 Months Aged Out No longer eligible b ased on patient's age to complete this topic Insurance [employer] Care Teams Boot Maker Relationship Specialty Start Date End Date Denny Polo DO [address] [address] PCP - General INTERNAL MEDICINE 09/27/22
--- OUTSIDE RECORDS SUMMARY | 2024-10-26 14:12 | XMS_ITS | Encounter Summary ---
Author Organization [facility] Address [address] [facility] [place] [address] Care Team Providers Care Appeals Writer Name Role Phone Amando Rooney Primary Care Provider [phone] Sarath Edward MD Primary Care Provider [phone] Denny Polo DO Primary Care Provider [phone] Malaika Wolf MD Unavailable Jeffry Novak MD Primary Care Provider [phone] Encounter Details Date Type Department Care Team (Late st Contact Info) Description 06/03/2013 [facility] Outpatient Visit [id number] Unknown, Provider Social History Tobacco Use Types Packs/Day Years [...] Info) Description 12/29/2024 1:20 PM CDT Appointment [facility] [address] [place] [address] Malaika Wolf MD [address] [place] [phone] 12/29/2024 2:20 PM CDT Appointment [facility] [address] [place] [address] Malaika Wolf MD [address] [place] [address] 02/10/2025 10:00 AM CDT Office Visit [facility] - Cardiology [address] [facility], [address] [phone] Manuelito Clarke MD [address] [facility], [place] [address] [place] [address] documented as of this encounter Visit Diagnoses Not on filedocumented in this encounter Care Teams Appeals Writer Relationship Specialty Start Date End Date Amando Rooney DO [address] [place] [address] PCP - General Family Medicine 01/27/13 02/04/18 Sarath Edward MD [address] [place] [address] PCP - General 02/05/18 08/23/20 Denny Polo DO [address] [id number] PCP - General Internal Medicine 08/24/20 09/28/23 Jeffry Novak MD [address] [place] [phone] PCP - General Family Medicine 09/29/23 Malaika Wolf MD [address] [place] [address] Physician Hematology and Oncology 09/10/23 documented as of this encounter
--- OUTSIDE RECORDS SUMMARY | 2024-10-26 14:12 | XMS_ITS | Referral Summary ---
Author Organization [facility] Address [address] [place] [address] Care Team Providers Care Financial Rep Name Role Phone Denny Polo DO Primary Care Provider [phone] Allergies No known active allergies Medications calcium [...] positive 03/08/2021 HTN (hypertension) 03/08/2021 Atrial flutter ([facility]) 01/12/2021 Overview (01/22/2021): Added automatically from request for surgery [id number] Longstanding persistent atrial fibrillation ([facility]) 11/29/2020 Vitamin D deficiency 09/29/2020 [...] 02/23/2013 Venous insufficiency (chronic) (peripheral) 02/06 A-fib ([facility]) 05/02/2011 Overview (08/13/2021): Last Assessment & Plan: S/P mini Maze, currently taking Tikosyn for rhythm control with QTc of 432 ms. Patient is tolerating Tikosyn and presents in sinus rhythm today. He feels great. Plan to continue Tikosyn as managed by Dr. Mendoza at [facility]. Continue Eliquis for 30 days after cardioversion. Follow-up as scheduled with Dr. Mendoza's team in May and with Dr. Clarke in August or sooner PRN. Immunizations Immunization Administration Dates Next Due Influenza, Quad, Adjuvantated, Intramuscular 04/2020 Influenza, Trivalent, High D ose, Split, Preservative Free, Intramuscular 06/10/2019 Influenza, Trivalent, Split, Preservative Free, Intradermal 06/11/2013 Social History Tobacco Use Types Packs/Day Years Used Date Smoking Tobacco: Never Smokeless Tobacco: Never Tobacco Cessation:Counseling Given: Not Answered Alcohol Use Standard Drinks/Week Comments Yes 6 (1 standard drink = 0.6 oz pur e alcohol) Sex and Gender Information Value Date Recorded Sex Assigned at Not on file Legal Sex Male 11:37 AM TRIPLE AIR VALVE TESTER Gender Identity Not on file Sexual Orientation Not on file Last Filed Vital Signs Vital Sign Reading Time Taken Comments Blood Pressure 164/81 07/29/2022 2:46 PM TRIPLE AIR VALVE TESTER Pulse 83 07/29/2022 2:46 PM TRIPLE AIR VALVE TESTER Temperature 36.3 C (97.4 F) 07/29/2022 2:46 PM TRIPLE AIR VALVE TESTER Respiratory Rate 18 10/04/2020 7:45 AM TRIPLE AIR VALVE TESTER Oxygen Saturation 96% 10/04/2020 7:45 AM TRIPLE AIR VALVE TESTER Inhaled Oxygen Concentration - - Weight 99.8 kg (220 lb) 07/29/2022 2:46 PM TRIPLE AIR VALVE TESTER Height 190.5 cm (6' 3 ) 07/29/2022 2:46 PM TRIPLE AIR VALVE TESTER Body Mass Index 27.5 07/29/2022 2:46 PM TRIPLE AIR VALVE TESTER Plan of Treatment Not on file Medical Devices Implanted Type Area Experience Designer Device Identifier Shelf Expiration Date Model / Serial / Lot Ivc Filter- 5 Implanted:Qty: 1 on 09/20/2004 IVC Filter Right: Groin [employer] [id number] Attune Cruciate Retain Cementless Knee Left 8 Component Femoral - Sn/A - [id number] Implanted:Qty: 1 on 10/03/2020 by Koffi Liao MD at [facility] Other - see comments Left: Knee [employer] [id number] 03/07/2030 [id number] / N/A / [id number] [employer] [id number] Attune Cementless Rotate Platform Knee 10 Baseplate Tibial - Sn/A - [id number] Implanted:Qty: 1 on 10/03/2020 by Koffi Liao MD at [facility] Other - see comments Left: Knee [employer] [id number] 09/07/2029 [id number] / N/A / [id number] [employer] [id number] Attune 8mm Cruciate Retaining Rotate Platform Knee 8 Insert - Sn/A - [id number] Implanted:Qty: 1 on 10/03/2020 by Koffi Liao MD at [facility] Other - see comments Left: Knee [employer] [id number] 08/07/2025 [id number] / N/A / [id number] Procedures Procedure Name Priority Date/Time Associated Diagnosis [...] ELECTRONICALLY VERIFIED REPORT 12/18/2015 2:50 PM: Danilo Fan M.D. Danilo Fan M.D. EMELY:emely 02:50 PM 02:50 PM [facility] [EOD] Narrative 12/18/2015 2:54 PM CDT EXAMINATION: Pre and post IV contrast CT the abdomen and pelvis. HISTORY: Chronic blood clots. [place] filter placed 06/2005. Increased leg pain. Kidney [...] HISTORY: Chronic blood clots. [place] filter placed 06/2005.Increased leg pain. Kidney stones [...] ELECTRONICALLY VERIFIED REPORT 12/18/2015 2:50 PM: Danilo Fan M.D. Danilo Fan M.D. EMELY:emely 02:50 PM 02:50 PM [facility] [EOD] Himanshu Brito MD IMG CT PROCEDURES Final Re sult from Last 3 Months or Most Recently Relevant to Health Maintenance Insurance HUMANA CHOICE MEDICARE PPO HUMANA CHOICE MEDICARE PPO HUMANA CHOICE MEDICARE PPO Advance Directives For more information, please contact: [phone] Documents on File Type Date Recorded Patient News Commentator Expl anation ADVANCE DIRECTIVE 10/03/2020 9:53 AM ADVANCE DIRECTIVE 01/09/2018 11:21 AM ADVANCE DIRECTIVE 01/09/2018 Advance Di rective Checklist ADVANCE DIRECTIVE 02/02/2016 12:00 AM ABEL R OF TELEVISION ACTOR FINANCIAL/MEDICAL * Full Code (Latest Code Status on File) Date Activated Date Inactivated Comments 10/03/2020 3:58 PM 10/04/2020 1:55 PM Care Teams Financial Rep Relationship Specialty Start Date End Date Denny Polo DO PCP - General Internal Medicine 04/06/19
--- OUTSIDE RECORDS SUMMARY | 2024-10-26 14:12 | XMS_ITS | Encounter Summary ---
Author Organization [facility] Health Address [address] [place] [address] Care Team Providers Care Latin Dance Instructor Name Role Phone Amando Rooney Primary Care Provider [phone] Sarath Edward MD Primary Care Provider [phone] Denny Polo DO Primary Care Provider [phone] Malaika Wolf MD Unavailable Jeffry Novak MD Primary Care Provider [phone] Encounter Details Date Type Department Care Team (Late st Contact Info) Description 05/20/2013 [facility] Outpatient Visit [id number] Pcp, [place] [address] Social History Tobacco Use Types Packs/Day Years [...] Info) Description 12/29/2024 1:20 PM CDT Appointment [facility] [address] [place] [address] Malaika Wolf MD [address] [place] [phone] 12/29/2024 2:20 PM CDT Appointment [facility] [address] [place] [address] Malaika Wolf MD [address] [place] [address] 02/10/2025 10:00 AM CDT Office Visit [facility] - Cardiology [facility], [address] [address] Manuelito Clarke MD [address] [place] [address], [address] [address] documented as of this encounter Visit Diagnoses Not on filedocumented in this encounter Care Teams Latin Dance Instructor Relationship Specialty Start Date End Date Amando Rooney DO [address] [place] [phone] PCP - General Family Medicine 01/27/13 02/04/18 Sarath Edward MD [address] [place] [phone] PCP - General 02/05/18 08/23/20 Denny Polo DO [address] [address] PCP - General Internal Medicine 08/24/20 09/28/23 Jeffry Novak MD [address] [place] [phone] PCP - General Family Medicine 09/29/23 Malaika Wolf MD [facility] [place] [address] Physician Hematology and Oncology 09/10/23 documented as of this encounter
--- OUTSIDE RECORDS SUMMARY | 2024-10-26 14:12 | XMS_ITS | Referral Summary ---
Author Organization [facility] Address [address] [facility] [place] [address] Care Team Providers Care Commodity Management Specialist Name Role Phone Malaika Wolf MD Unavailable Jeffry Novak MD Primary Care Provider [phone] Source Comments [facility],non-owned Affiliates and Associated Physician Practices is amultiple site organization consisting of ambulatory clinics and hospital sitesin [place], [place], [place] and [place]. This disclosure is being madepursuant to the Care Everywhere program and may not contain all information available regarding this patient. Last updated 18.[facility] Encounters Date Type Department Care Team Description 08/25/2024 Telephone [facility] - Centralized Scheduling [address] [place] [phone] Blayne Clarke MD Reschedule Appointment 08/19/2024 Travel 08/19/2024 9:40 AM PLASTIC PANEL INSTALLER Office Visit [facility] - Cardiology [address] [facility] [place] [address] [place] [phone] Blayne Clarke MD Atypical atrial flutter (HCC) (Primary Dx) from Last 3 Months Allergies No known active allergies Medications * [...] venous thrombosis) 06/05/2014 Fluttering heart 06/05/2014 Immunizations Name Administration Dates Next Due INFLUENZA [...] Comments Blood Pressure 150/90 08/19/2024 9:49 AM PLASTIC PANEL INSTALLER Pulse 78 08/19/2024 9:49 AM PLASTIC PANEL INSTALLER Temperature 36.8 C (98.2 F) 07/14/2024 10:46 AM PLASTIC PANEL INSTALLER Respiratory Rate 18 07/14/2024 10:46 AM PLASTIC PANEL INSTALLER Oxygen Saturation 97% 08/19/2024 9:49 AM PLASTIC PANEL INSTALLER Inhaled Oxygen Concentration - - Weight 98.9 kg (218 lb) 08/19/2024 9:49 AM PLASTIC PANEL INSTALLER Height 193 cm (6' 4 ) 08/19/2024 9:49 AM PLASTIC PANEL INSTALLER Body Mass Index 26.54 08/19/2024 9:49 AM PLASTIC PANEL INSTALLER Plan of Treatment Upcoming Encounters Date Type Department Care Team (Late st Contact Info) Description 12/29/2024 1:20 PM CDT Appointment [facility] [address] [place] [address] Malaika Wolf MD [address] [place] [phone] 12/29/2024 2:20 PM CDT Appointment [facility] [address] [place] [address] Malaika Wolf MD [address] [place] [phone] 02/10/2025 10:00 AM CDT Office Visit [facility] - Cardiology [address] [place] [phone] Blayne Clarke MD [address] [place] [address] Medical Devices Implanted Type Area Assembler Production Line Device Identifier Shelf Expiration Date Model / Serial / Lot Mesh Srg Ultrapro 4.7x2.4in Lg Onlay Implanted:Qty: 1 on 08/03/2018 by Lionel Bee MD at [facility] Right: Groin [employer] 02/06/2020 SL / / [id number] Description:DOCUMENTED BY Julianne Harrison Procedures Procedure Name Priority Date/Time Associated Diagnosis Comments BASIC METABOLIC PANEL (CALCIUM TOTAL) Routine 09/10/2024 7:13 AM PLASTIC PANEL INSTALLER Atypical atrial flutter (HCC) EKG 12-LEAD Routine 08/19/2024 9:58 AM PLASTIC PANEL INSTALLER Atypical atrial flutter (HCC) from Last 3 Months Results * (ABNORMAL) BASIC METABOLIC PANEL (CALCIUM TOTAL) (09/10/2024 7:13 AM PLASTIC PANEL INSTALLER) Pathologist [facility] Glucose 100(H) 65 - 99 mg/dL [facility] [...] 10.3 mg/dL [facility] Comment: Test Performed at: [facility] [address] DERIC JEAN BAPTISTE MD Blood BLOOD SPECIMEN / Unknown 09/10/2024 7:13 AM PLASTIC PANEL INSTALLER 09/10/2024 7:14 AM PLASTIC PANEL INSTALLER Blayne Clarke MD LAB - CHEMISTRY [facility] [address] [address] * EKG 12-LEAD (08/19/2024 9:58 AM PLASTIC PANEL INSTALLER) [facility] Ventricular Rate 75 BPM [facility] Atrial Rate 75 BPM [facility] P-R Interval 186 ms [facility] QRS Duration ms 90 ms [facility] Q-T Interval ms 436 ms [facility] QTC Calculation (Bezet) 486 ms [facility] Calculated P Quebeck 92 degrees [facility] Calculated R Quebeck 1 degrees [facility] Calculated T Quebeck 41 degrees [facility] Interpretation EKG NORMAL SINUS RHYTHM PROLONGED QT ABNORMAL ECG WHEN COMPARED WITH ECG OF 02-OCT-2023 14:47, ABERRANT CONDUCTION IS NO LONGER PRESENT Confirmed by fellow NIKA TRAMMELL MD ([id number]) on 08/26/2024 8:40:07 AM Confirmed by BLAYNE CLARKE MD ([id number]) on 08/28/2024 2:13:35 PM [facility] 08/19/2024 9:58 AM PLASTIC PANEL INSTALLER 08/28/2024 2:13 PM PLASTIC PANEL INSTALLER Blayne Clarke MD ECG ORDERABLES [facility] from Last 3 Months Advance Directives Documents on File Type Date Recorded Patient Bonding Machine Setter Expl anation Adv Directive/Living Will/POA 08/05/2018 3:14 PM Care Teams Commodity Management Specialist Relationship Specialty Start Date End Date Jeffry Novak MD [address] [place] [phone] PCP - General Family Medicine 09/29/23 Malaika Wolf MD [address] [place] [phone] Physician Hematology and Oncology 09/10/23
--- OUTSIDE RECORDS SUMMARY | 2024-10-26 14:12 | XMS_ITS | Encounter Summary ---
Author Organization [facility] Address [address] [facility] [place] [address] Care Team Providers Care Test Case Developer Name Role Phone Denny Polo Primary Care Provider [phone] Malaika Wolf MD Unavailable Jeffry Novak MD Primary Care Provider [phone] Reason for Visit * Reason Onset Date Comments MEDICATION REFILL 06/12/2023 Encounter Details Date Type Department Care Team (Late Contact Info) Description 06/12/2023 Refill [facility] - Hematology/Oncology [address] [place] [phone] Sakshi Sam MD [address] [facility] [place] [phone] MEDICATION REFILL Social History Tobacco Use Types Packs/Day Years [...] Encounters Date Type Department Care Team (Late Contact Info) Description 12/29/2024 1:20 PM CDT Appointment [facility] [address] [place] [address] Malaika Wolf MD [address] [place] [phone] 12/29/2024 2:20 PM CDT Appointment [facility] [place] [address] Malaika oWlf MD [address] [place] [phone] 02/10/2025 10:00 AM CDT Office Visit [facility] - Cardiology [facility] [phone] Manuelito Clarke MD [address] [place] [address] documented as of this encounter Visit Diagnoses Not on filedocumented in this encounter Care Teams Test Case Developer Relationship Specialty Start Date End Date Denny Polo DO [address] [phone] PCP - General Internal Medicine 08/24/20 09/28/23 Jeffry Novak MD [address] [place] [phone] PCP - General Family Medicine 09/29/23 Malaika Wolf MD [address] [place] [phone] Physician Hematology and Oncology 09/10/23 documented as of this encounter
== END 2024-10-26 14:09 | disposition home or self-care (01) ==
PROVIDERS: PCP Family Medicine; Visit Provider Family Medicine
DX: M17.11 Unilateral primary osteoarthritis, right knee (principal); M25.461 Effusion, right knee
CPT/HCPCS: 73562; 73590

== ENCOUNTER 2025-02-18 13:32 | Outpatient (CLI) | payer MEDICARE, SELFPAY ==
--- NOTE | ~2025-02-18 | US_ITS ---
EXAMINATION:US venous doppler LE LT INDICATION:Soft tissue disorder TECHNIQUE: Multiple grayscale, color flow and Doppler images of the left lower extremity deep venous systems were obtained and reviewed. COMPARISON:Ultrasound dated 06/21/2024 FINDINGS: The common femoral, superficial femoral and popliteal veins demonstrate normal respiratory variation, augmentation and compressibility. Color flow is also seen within the posterior tibial, pe roneal, greater saphenous and profunda veins. IMPRESSION: 1: No lower extremity deep venous thrombosis. Reviewed, dictated and finalized at location B.
--- OUTSIDE RECORDS SUMMARY | 2025-02-18 13:36 | XMS_ITS | Encounter Summary ---
Author Organization [facility] Address [address] [facility] [place] [address] Care Team Providers Care Real Estate Processor Name Role Phone Malaika Wolf MD Unavailable Jeffry Novak MD Primary Care Provider [phone] Reason for Referral * Procedure (Routine) - Pending Review Specialty Diagnoses / Procedures Referred By Contac t Referred To Contact Cardiology Diagnoses Persistent atrial fibrillation (HCC) Atypical atrial flutter (HCC) Procedures Event Monitor Hookup (30 days) Manuelito Clarke MD [facility] [address] Phone: tel: fax: [facility] [address] [place] [phone] Phone: tel: fax: Referral ID Status Reason Start Date Expiration Date V isits Requested Visits Authorized [id number] Pending Review 02/17/2025 02/17/2026 1 1 Encounter Details Date Type Department Care Team (Late st Contact Info) Description 02/17/2025 Orders Only [facility] - Cardiology [facility], [address] [phone] Daniel Mccracken RN Persistent atrial fibrillation (HCC) ; Atypical atrial flutter (HCC) Social History Tobacco Use Types Packs/Day Years Used Date Smoking Tobacco: Never Smokeless Tobacco: Never Alcohol Use Standard Drinks/Week Comments Yes 5 (1 standard drink = 0.6 oz pur e alcohol) occ PHQ-2 Answer Date Recorded PHQ2 TOTAL SCORE 0 07/25/2022 Sex and Gender Information Value Date Recorded Sex Assigned at Male 03/04/2022 6:00 PM CDT Legal Sex Male 4:32 AM SHERIFFS Gender Identity Male 03/04/2022 6:00 PM CDT Sexual Orientation Not on file documented as of this encounter Progress Notes * Daniel Mccracken RN - 02/17/2025 12:03 PM CDT Afib detected on kardia. Dr clarke ordering 30 day event monitor documented in this encounter Plan of Treatment Scheduled Orders Name Type Priority Associated Diagnoses Orde r Schedule Event Monitor Hookup (30 days) ECG Routine Persistent atrial fibrillation (HCC) Atypical atrial flutter (HCC) 1 Occurrences starting 02/17/2025 until 02/17/2026 documented as of this encounter Visit Diagnoses Diagnosis Persistent atrial fibrillation (HCC)- Primary Atrial fibrillation Atypical atrial flutter (HCC) Atrial flutter documented in this encounter Care Teams Real Estate Processor Relationship Specialty Start Date End Date Jeffry Novak MD [address] [place] [phone] PCP - General Family Medicine 09/29/23 Malaika Wolf MD [address] [place] [address] Physician Hematology and Oncology 09/10/23 documented as of this encounter
--- OUTSIDE RECORDS SUMMARY | 2025-02-18 13:36 | XMS_ITS | Continuity of Care Document ---
Author Organization [facility] Address [address] [place] [address] Phone Care Team Providers Care Naval Aircrewman Avionics Name Role Phone Jairo Webb MD Unavailable Unavailable Allergies, Adverse Reactions, Alerts Substance Reaction Status Criticality No Known Allergies Active No Inform ation Medications Medication Instructions Dosage Effective Dates (start - stop) Status Comments No Drug Therapy Prescribed Procedures Procedure Date [facility] 1 VIEW OFFICE/OUTPATIENT VISIT EST OFFICE CONSULTATION RADEX ISIDRO COMPL MINIMUM 2 VIEWS 016 Advance Directives Directive Yes / No Effective Date File Name No Information Encounters Encounter Description Practice Location Reason(s) For Visit Diagnoses Date Provider Providers Copied on Encounter [facility], [address], [place], [address], [place] tel:[phone] [facility] No Information 6 Tracey Gill. [address] [facility] [place], [id number] . tel: [phone] OFFICE/OUTPAT IENT VISIT EST [facility], [address], [place], [address], [place] tel:[phone] [facility] Pain in right shoulderIncompl ete tear of right rotator cuffClosed fracture of right scapula with routine healing, unspecified part of scapula, subsequent encounter 6 Dusek Jairo. [address] [facility] [place], [place], [address] . tel: [phone] OFFICE CONSULTATION [facility], [address], [place], [address], [place] tel:[phone] [facility] Right shoulder pain (chief complaint) Closed fracture of right scapula, unspecified part of scapula, initial encounterIncomp lete tear of right rotator cuff 6 Zachariah Thompson. [address], [place], [place], [address] . tel: [phone] Referring Provider: Sarath Levin, [address], [place], [address]. tel:[phone] Family History Family Member Type Diagnosis Age At Onset Father Problem (finding) osteoarthritis Father Problem (finding) atrial fibrillation Payers Payer name Insurance type Covered green party ID Nicole kelly(s) Blue Access PPO E2 OT [id number] Social History Type Description Quantity Date Captured [...]
--- OUTSIDE RECORDS SUMMARY | 2025-02-18 13:36 | XMS_ITS | Encounter Summary ---
Author Organization [facility] Health Address [address] [facility] [place] [address] Care Team Providers Care Medical Associate Name Role Phone Amando Rooney DO Primary Care Provider [phone] Sarath Edward MD Primary Care Provider [phone] Denny Polo DO Primary Care Provider [phone] Malaika Wolf MD Unavailable Jeffry Novak MD Primary Care Provider [phone] Encounter Details Date Type Department Care Team (Late st Contact Info) Description 05/20/2013 [facility] Outpatient Visit [id number] Pcp, Unknown [place] [address] Social History Tobacco Use Types Packs/Day Years Used Date Smoking Tobacco: Never Smokeless Tobacco: Never Alcohol Use Standard Drinks/Week Comments Yes 5 (1 standard drink = 0.6 oz pur e alcohol) Sex and Gender Information Value Date Recorded Sex Assigned at Male 03/04/2022 6:00 PM CDT Legal Sex Male 4:32 AM TOUR ESCORT Gender Identity Male 03/04/2022 6:00 PM CDT Sexual Orientation Not on file documented as of this encounter Plan of Treatment Not on file documented as of this encounter Visit Diagnoses Not on filedocumented in this encounter Care Teams Medical Associate Relationship Specialty Start Date End Date Amando Rooney DO [address] [place] [address] PCP - General Family Medicine 01/27/13 02/04/18 Sarath Edward MD [address] [place] [address] PCP - General 02/05/18 08/23/20 Denny Polo DO [address] [place] [address] PCP - General Internal Medicine 08/24/20 09/28/23 Jeffry Novak MD [address] [place] [phone] PCP - General Family Medicine 09/29/23 Malaika Wolf MD [address] [place] [address] Physician Hematology and Oncology 09/10/23 documented as of this encounter
--- OUTSIDE RECORDS SUMMARY | 2025-02-18 13:36 | XMS_ITS | Encounter Summary ---
Author Organization [facility] Health Address [address] [facility] [place] [address] Care Team Providers Care Shuttle Repairer Name Role Phone Amando Rooney DO Primary Care Provider [phone] Sarath Edward MD Primary Care Provider [phone] Denny Polo DO Primary Care Provider [phone] Malaika Wolf MD Unavailable Jeffry Novak MD Primary Care Provider [phone] Encounter Details Date Type Department Care Team (Late st Contact Info) Description 06/03/2013 [facility] Outpatient Visit [id number] Unknown, Provider Social History Tobacco Use Types Packs/Day Years Used Date Smoking Tobacco: Never Smokeless Tobacco: Never Alcohol Use Standard Drinks/Week Comments Yes 5 (1 standard drink = 0.6 oz pur e alcohol) Sex and Gender Information Value Date Recorded Sex Assigned at Male 03/04/2022 6:00 PM CDT Legal Sex Male 4:32 AM EXCEPTIONAL STUDENT EDUCATION TEACHER Gender Identity Male 03/04/2022 6:00 PM CDT Sexual Orientation Not on file documented as of this encounter Plan of Treatment Not on file documented as of this encounter Visit Diagnoses Not on filedocumented in this encounter Care Teams Shuttle Repairer Relationship Specialty Start Date End Date Amando Rooney DO [address] [place] [address] PCP - General Family Medicine 01/27/13 02/04/18 Sarath Edward MD [address] [place] [phone] PCP - General 02/05/18 08/23/20 Denny Polo DO [address] [place] [address] PCP - General Internal Medicine 08/24/20 09/28/23 Jeffry Novak MD [address] [place] [phone] PCP - General Family Medicine 09/29/23 Malaika Wolf MD [address] [place] [phone] Physician Hematology and Oncology 09/10/23 documented as of this encounter
--- OUTSIDE RECORDS SUMMARY | 2025-02-18 13:36 | XMS_ITS | Encounter Summary ---
Author Organization [facility] Address [address] [facility] [place] [address] Care Team Providers Care Slab Installer Name Role Phone Amando Rooney DO Primary Care Provider [phone] Saarth Edward MD Primary Care Provider [phone] Denny Polo DO Primary Care Provider [phone] Malaika Wolf MD Unavailable Jeffry Novak MD Primary Care Provider [phone] Encounter Details Date Type Department Care Team (Late st Contact Info) Description 07/22/2012 [facility] Outpatient Visit [facility] - Family Medicine [address] [place] [address] Amando Rooney DO [address] [place] [address] Social History Tobacco Use Types Packs/Day Years Used Date Smoking Tobacco: Never Smokeless Tobacco: Never Alcohol Use Standard Drinks/Week Comments Yes 5 (1 standard drink = 0.6 oz pur e alcohol) Sex and Gender Information Value Date Recorded Sex Assigned at Male 03/04/2022 6:00 PM CDT Legal Sex Male 4:32 AM 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 PRESS OPERATOR Gender Identity Male 03/04/2022 6:00 PM CDT Sexual Orientation Not on file documented as of this encounter Plan of Treatment Not on file documented as of this encounter Visit Diagnoses Not on filedocumented in this encounter Care Teams Slab Installer Relationship Specialty Start Date End Date Amando Rooney DO [address] [place] [phone] PCP - General Family Medicine 01/27/13 02/04/18 Sarath Edward MD [address] [place] [phone] PCP - General 02/05/18 08/23/20 Denny Polo DO [address] [address] PCP - General Internal Medicine 08/24/20 09/28/23 Jeffry Novak MD [address] [place] [phone] PCP - General Family Medicine 09/29/23 Malaika Wolf MD [address] [place] [address] Physician Hematology and Oncology 09/10/23 documented as of this encounter
--- OUTSIDE RECORDS SUMMARY | 2025-02-18 13:36 | XMS_ITS | Encounter Summary ---
Author Organization [facility] Health Address [address] [facility] [place] [address] Care Team Providers Care Licensed Physical Therapist Assistant Name Role Phone Amando Rooney DO Primary Care Provider [phone] Sarath Edward MD Primary Care Provider [phone] Denny Polo DO Primary Care Provider [phone] Malaika Wolf MD Unavailable Jeffry Novak MD Primary Care Provider [phone] Encounter Details Date Type Department Care Team (Late st Contact Info) Description 01/09/2012 [facility] Outpatient Visit [id number] Amando Rooney DO [address] [place] [address] Social History Tobacco Use Types Packs/Day Years Used Date Smoking Tobacco: Never Assessed Sex and Gender Information Value Date Recorded Sex Assigned at Male 03/04/2022 6:00 PM CDT Legal Sex Male 4:32 AM FRANCHISE BUSINESS CONSULTANT Gender Identity Male 03/04/2022 6:00 PM CDT Sexual Orientation Not on file documented as of this encounter Plan of Treatment Not on file documented as of this encounter Visit Diagnoses Not on filedocumented in this encounter Care Teams Licensed Physical Therapist Assistant Relationship Specialty Start Date End Date Amando Rooney DO [address] [place] [address] PCP - General Family Medicine 01/27/13 02/04/18 Sarath Edward MD [address] [place] [address] PCP - General 02/05/18 08/23/20 Denny Polo DO [address] [place] [address] PCP - General Internal Medicine 08/24/20 09/28/23 Jeffry Novak MD [address] [place] [phone] PCP - General Family Medicine 09/29/23 Malaika Wolf MD [address] [place] [address] Physician Hematology and Oncology 09/10/23 documented as of this encounter
--- OUTSIDE RECORDS SUMMARY | 2025-02-18 13:36 | XMS_ITS | Referral Summary ---
Author Organization [facility] Address [address] [place] [address] Care Team Providers Care Inseam Trimming Machine Operator Name Role Phone Denny Polo DO Primary Care Provider [phone] Allergies No known active allergies Medications calcium [...] positive 03/08/2021 HTN (hypertension) 03/08/2021 Atrial flutter 01/12/2021 Overview (01/22/2021): Added automatically from request for surgery [id number] Longstanding persistent atrial fibrillation 11/07 Vitamin D deficiency 09/29/2020 Primary osteoarthritis of [...] 02/23/2013 Venous insufficiency (chronic) (peripheral) 02/06 A-fib (CMS/HCC) 05/02/2011 Overview (08/13/2021): Last Assessment & Plan: S/P mini Maze, currently taking Tikosyn for rhythm control with QTc of 432 ms. Patient is tolerating Tikosyn and presents in sinus rhythm today. He feels great. Plan to continue Tikosyn as managed by Dr. Mendoza at [facility]. 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 Gender Identity Not on file Sexual Orientation Not on file Last Filed Vital Signs Vital Sign Reading Time Taken Comments Blood Pressure 164/81 07/29/2022 2:46 PM FIRE ALARM REPAIRER Pulse 83 07/29/2022 2:46 PM FIRE ALARM REPAIRER Temperature 36.3 C (97.4 F) 07/29/2022 2:46 PM FIRE ALARM REPAIRER Respiratory Rate 18 10/04/2020 7:45 AM FIRE ALARM REPAIRER Oxygen Saturation 96% 10/04/2020 7:45 AM FIRE ALARM REPAIRER Inhaled Oxygen Concentration - - Weight 99.8 kg (220 lb) 07/29/2022 2:46 PM FIRE ALARM REPAIRER Height 190.5 cm (6' 3) 07/29/2022 2:46 PM FIRE ALARM REPAIRER Body Mass Index 27.5 07/29/2022 2:46 PM FIRE ALARM REPAIRER Plan of Treatment Not on file Medical Devices Implanted Type Area Operating Room Manager Device Identifier Shelf Expiration Date Model / Serial / Lot Ivc Filter- 5 Implanted:Qty: 1 on 09/20/2004 IVC Filter Right: Groin DepPK [employer] [id number] Attune Cruciate Retain Cementless Knee Left 8 Component Femoral - Sn/A - [id number] Implanted:Qty: 1 on 10/03/2020 by Koffi Liao MD at [facility] Other - see comments Left: Knee [employer] [id number] 03/07/2030 [id number] / N/A / [id number] [employer] [id number] Attune Cementless Rotate Platform Knee 10 Baseplate Tibial - Sn/A - [id number] Implanted:Qty: 1 on 10/03/2020 by Koffi Liao MD at [facility] Other - see comments Left: Knee [employer] [id number] 09/07/2029 [id number] / N/A / [id number] [employer] [id number] Attune 8mm Cruciate Retaining Rotate Platform Knee 8 Insert - Sn/A - [id number] Implanted:Qty: 1 on 10/03/2020 by Koffi Liao MD at [facility] Other - see comments Left: Knee [employer] [id number] 08/07/2025 [id number] / N/A / [id number] Procedures Procedure Name Priority Date/Time Associated Diagnosis [...] Fan M.D. EMELY:emely 02:50 PM 02:50 PM [facility] [EOD] Narrative 12/18/2015 2:54 PM CDT EXAMINATION: Pre and post IV contrast CT the abdomen and pelvis. HISTORY: Chronic blood clots. Crete filter placed 06/2005. Increased leg pain. Kidney [...] Fan M.D. EMELY:emely 02:50 PM 02:50 PM [facility] [EOD] Himanshu Brito MD IM CT PROCEDURES Final Re sult from Last 3 Months or Most Recently Relevant to Health Maintenance Insurance HUMANA CHOICE MEDICARE PPO HUMANA CHOICE MEDICARE PPO HUMANA CHOICE MEDICARE PPO Advance Directives For more information, please contact: [phone] Documents on File Type Date Recorded Patient Plug Sorter Expl anation ADVANCE DIRECTIVE 10/03/2020 9:53 AM ADVANCE DIRECTIVE 01/09/2018 11:21 AM ADVANCE DIRECTIVE 01/09/2018 Advance Di rective Checklist ADVANCE DIRECTIVE 02/02/2016 12:00 AM ABEL R OF POWER GENERATING PLANT OPERATOR FINANCIAL/MEDICAL * Full Code (Latest Code Status on File) Date Activated Date Inactivated Comments 10/03/2020 3:58 PM 10/04/2020 1:55 PM Care Teams Inseam Trimming Machine Operator Relationship Specialty Start Date End Date Denny Polo DO PCP - General Internal Medicine 04/06/19
--- OUTSIDE RECORDS SUMMARY | 2025-02-18 13:36 | XMS_ITS | Clinical Summary ---
Author Organization [facility] [employer] Address [address] [place] [address] Care Team Providers Care Business Insurance Agent Name Role Phone Malaika Wolf MD Unavailable Jeffry Novak MD Primary Care Provider [phone] Source Comments [facility] [employer],non-owned Affiliates and Associated Physician Practices is amultiple site organization consisting of ambulatory clinics and hospital sitesin [place], [place], [place] and [place]. This disclosure is being madepursuant to the Care Everywhere program and may not contain all information available regarding this patient. Last updated 18.[facility] [employer] Allergies No known active allergies Medications * Be aware that medications may not be up to date on this document. Alwaysverify current medications with the patient. 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 Drink the rest of prep at 4am the day of the colonoscopy. 4000 mL 09/30/19 24 025 Discontinued(Li st Clean-Up) dofetilide (Tikosyn) 500 MCG capsule Take 1 (one) capsule by mouth 2 times daily 180 capsule 11 10/02/19 24 025 Discontinued amoxicillin (Amoxil) 500 MG capsule Take 4 capsules 2 hours before dental procedure. 4 capsule 10/02/19 24 025 Discontinued(Li st Clean-Up) Active Problems Problem Noted Date Diagnosed Date [...] Tikosyn as managed by Dr. Mendoza at [facility]. Continue Eliquis for 30 days after cardioversion. Follow-up as scheduled with Dr. Mendoza's team in May and with Dr. Clarke in August or sooner PRN. Resolved Problems Problem Noted Date Diagnosed Date Resolved Date DVT (deep venous thrombosis) 06/05/2014 Fluttering heart 06/05/2014 Encounters Date Type Department Care Team Description 02/17/2025 Orders Only [facility] - Cardiology [address] [place] [address], [address] [phone] Daniel Mccracken RN Persistent atrial fibrillation (HCC) ; Atypical atrial flutter (HCC) 02/10/2025 10:00 AM CDT Office Visit [facility] - Cardiology [address] [place] [address], [address] [address] Manuelito Clarke MD Atypical atrial flutter (HCC) (Primary Dx); HTN (hypertension), benign 02/10/2025 Travel 02/01/2025 Refill [facility] - Cardiology [address] [place] [address], [address] [phone] Manuelito Clarke MD Refill Request 01/07/2025 1:52 PM CDT - 01/07/2025 11:59 PM CDT Hospital Encounter [facility] [address] [place] [address] Malaika Wolf MD Discharge Disposition: Home or Self Care 01/07/2025 Travel 01/06/2025 Telephone [facility] [address] [place] [address] Fina Pike 01/06/2025 Orders Only [facility] - Hematology/Oncology [address] [place] [address] Malaika Wolf MD 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 (HCC) from Last 3 Months Immunizations Immunization Administration Dates Next Due INFLUENZA VACCINE 06/28/2022 [...] PM CDT 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 Gender Identity Male 03/04/2022 6:00 PM CDT Sexual Orientation Not on file Last Filed Vital Signs Vital Sign Reading Time Taken Comments Blood Pressure 140/82 02/10/2025 10:16 AM CDT Pulse 61 02/10/2025 10:16 AM CDT Temperature 36.9 C (98.4 F) 01/07/2025 2:17 PM CDT Respiratory Rate 18 01/07/2025 2:17 PM CDT Oxygen Saturation 99% 02/10/2025 10:16 AM CDT Inhaled Oxygen Concentration - - Weight 99.3 kg (219 lb) 02/10/2025 10:16 AM CDT Height 193 cm (6' 4) 02/10/2025 10:16 AM CDT Body Mass Index 26.66 02/10/2025 10:16 AM CDT Plan of Treatment Health Maintenance Due Date Last Done Comments COLOGUARD (AGES 45-75) - COLON CA SCREENING 1950 COLON MONITORING 1950 COLONOSCOPY - COLON CA SCREENING 1950 CT COLONOGRAPHY - COLON CA SCREENING 1950 Colorectal Cancer Screening 1950 FIT - COLON CA SCREENING 1950 FLEX SIG - COLON CA SCREENING 1950 HEPATITIS C SCREENING 11/02/1969 DTAP/TDAP/TD VACCINES (1 - Tdap) 11/06/1970 PNEUMOCOCCAL VACCINE 50+ (1 of 1 - PCV) 11/06/2001 ZOSTER VACCINE (1 of 2) 11/06/2001 Respiratory Syncytial Virus (RSV) Vaccine Pt: or over 60 yrs (1 - Risk 60-74 years 1-dose series) 2011 COVID-19 VACCINE ( season) 2024 02/12/2022, 07/06/2021, 12/07/2020, Additional history exists DEPRESSION SCREENING 09/08/2024 07/25/2022 MEDICARE AWV CALENDAR YEAR 2024 LIPID TESTING 10/11/2024 10/11/2019 INFLUENZA VACCINE (Season Ended) 2025 06/28/2022, 06/13/2022, 06/07/2021, Additional history exists SCREENING FOR DIABETES 01/08/2028 , 09/10/2024, 06/30/2024, Additional history exists HEPATITIS B VACCINE Aged Out No longe r eligible based on patient's age to complete this topic HIB VACCINE Aged Out No longer eligi ble based on patient's age to complete this topic HPV VACCINE Aged Out No longer eligi ble based on patient's age to complete this topic MENINGOCOCCAL (Group B) VACCINE SHARED DECISION-MAKING Aged Out No longer eligible based on patient's age to complete this topic MENINGOCOCCAL GROUPS A/C/Y/W VACCINE Aged Out No longer eligible based on patient's age to complete this topic Medical Devices Implanted Type Area Asphalt Spreader Operator Device Identifier Shelf Expiration Date Model / Serial / Lot Mesh Srg Ultrapro 4.7x2.4in Lg Onlay Implanted:Qty: 1 on 08/03/2018 by Lionel eBe MD at [facility] Right: [employer] 02/06/2020 [facility] / / [id number] Description:DOCUMENTED BY Julianne Harrison Procedures Procedure Name Priority Date/Time Associated Diagnosis Comments EKG 12-LEAD Routine 02/10/2025 10:21 AM CDT Atypical atrial flutter (HCC) CBC W AUTO DIFFERENTIAL STAT 01/07/2025 2:09 PM CDT 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 (HCC) COMPREHENSIVE METABOLIC PANEL STAT 01/07/2025 2:09 PM CDT 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 (HCC) from Last 3 Months Results * EKG 12-Lead (02/10/2025 10:21 AM CDT) [facility] Ventricular Rate 59 BPM [facility] Atrial Rate 59 BPM [facility] P-R Interval 168 ms [facility] QRS Duration ms 90 ms [facility] Q-T Interval ms 446 ms [facility] QTC Calculation (Bezet) 441 ms [facility] Calculated P Procious 92 degrees [facility] Calculated R Procious 5 degrees [facility] Calculated T Procious 36 degrees [facility] Interpretation EKG SINUS BRADYCARDIA WITH PREMATURE ATRIAL COMPLEXES OTHERWISE NORMAL ECG WHEN COMPARED WITH ECG OF 19-AUG-2024 09:58, PREMATURE ATRIAL COMPLEXES ARE NOW PRESENT Confirmed by MANUELITO CLARKE MD ([id number]) on 02/12/2025 10:31:47 AM [facility] 02/10/2025 10:2 1 AM CDT 02/12/2025 10:31 AM CDT us Manuelito Clarke MD ECG ORDERABLES Edited Result - Final [facility] * (ABNORMAL) CBC WITH DIFFERENTIAL (01/07/2025 2:09 PM CDT) [facility] WBC 3.3(L) 4.0 - 10.7 x10E9/L 01/07/2025 2:27 PM CDT [facility] RBC Count 4.59 4.30 - 5.80 x10E12/L 01/07/2025 2:27 PM CDT [facility] Hemoglobin 15.2 13.3 - 17.5 g/dL 01/07/2025 2:27 PM CDT [facility] Hematocrit 43.8 38.7 - 51.1 % 01/07/2025 2:27 PM [facility] MCV 95.4 80.0 - 98.0 fL 01/07/2025 2:27 PM [facility] MCH 33.1 26.7 - 33.6 pg 01/07/2025 2:27 PM [facility] MCHC 34.7 31.7 - 36.3 g/dL 01/07/2025 2:27 PM [facility] RDW-CV 13.1 11.3 - 14.8 % 01/07/2025 2:27 PM [facility] Platelet Count 173 150 - 420 x10E9/L 01/07/2025 2:27 PM [facility] MPV 10.0 7.8 - 11.4 fL 01/07/2025 2:27 PM [facility] Preliminary Absolute Neutrophil 2.16 1.60 - 7.50 x10E9/L 01/07/2025 2:27 PM [facility] Neutrophil % 66.3 41.0 - 74.0 % 01/07/2025 2:27 PM [facility] Lymphocyte % 19.3 17.0 - 47.0 % 01/07/2025 2:27 PM [facility] Monocyte % 10.1 3.0 - 11.0 % 01/07/2025 2:27 PM [facility] Eosinophil % 2.5 0.0 - 7.0 % 01/07/2025 2:27 PM [facility] Basophil % 1.2 0.0 - 1.6 % 01/07/2025 2:27 PM [facility] Immature Granulocytes % 0.6 0.0 - 1.0 % 01/07/2025 2:27 PM [facility] Neutrophil Absolute 2.16 1.60 - 7.50 x10E9/L 01/07/2025 2:27 PM [facility] Lymphocyte Absolute 0.63(L) 1.00 - 4.40 x10E9/L 01/07/2025 2:27 PM [facility] Monocyte Absolute 0.33 0.15 - 1.00 x10E9/L 01/07/2025 2:27 PM [facility] Eosinophil Absolute 0.08 0.00 - 0.60 x10E9/L 01/07/2025 2:27 PM [facility] Basophil Absolute 0.04 0.00 - 0.13 x10E9/L 01/07/2025 2:27 PM [facility] Blood BLOOD SPECIMEN / Unknown Venipuncture / Unknown 01/07/2025 2:09 PM CDT 01/07/2025 2:17 PM CDT us Malaika Wolf MD LAB - HEMATOLOGY ORDERABLES Lucina babcock Result [facility] [address] [place] [phone], [facility] [phone] * (ABNORMAL) COMPREHENSIVE METABOLIC PANEL (01/07/2025 2:09 PM CDT) BUN 15 7 - 26 mg/dL 01/07/2025 2:48 PM [facility] Creatinine 0.84 0.71 - 1.16 mg/dL 01/07/2025 2:48 PM [facility] Sodium 142 136 - 145 mmol/L 01/07/2025 2:48 PM [facility] Potassium 4.2 3.5 - 4.5 mmol/L 01/07/2025 2:48 PM [facility] Chloride 107 98 - 107 mmol/L 01/07/2025 2:48 PM [facility] CO2 27 22 - 29 mmol/L 01/07/2025 2:48 PM [facility] Glucose 109(H) 70 - 99 mg/dL 01/07/2025 2:48 PM [facility] Calcium 9.6 8.4 - 10.2 mg/dL 01/07/2025 2:48 PM [facility] Protein Total 6.8 6.0 - 8.3 g/dL 01/07/2025 2:48 PM [facility] Albumin 4.1 3.4 - 5.0 g/dL 01/07/2025 2:48 PM [facility] Bilirubin Total 1.0 0.2 - 1.2 mg/dL 01/07/2025 2:48 PM [facility] Alkaline Phosphatase 74 40 - 150 U/L 01/07/2025 2:48 PM [facility] ALT 22 5 - 55 U/L 01/07/2025 2:48 PM [facility] AST 21 5 - 34 U/L 01/07/2025 2:48 PM [facility] Anion Gap 8 6 - 16 01/07/2025 2:48 PM [facility] BUN/Creatinine Ratio 18 7 - 23 01/07/2025 2:48 PM [facility] Osmolality Calculated 295 275 - 295 mOsm/kg 01/07/2025 2:48 PM [facility] Albumin/Globulin Ratio 1.5 1.1 - 2.3 01/07/2025 2:48 PM [facility] eGFR by CKD-EPI >90 >=90 mL/min/1.7 3 m2 01/07/2025 2:48 PM [facility] Blood BLOOD SPECIMEN / Unknown Venipuncture / Unknown 01/07/2025 2:09 PM CDT 01/07/2025 2:17 PM T Malaika Wolf MD LAB - CHEMISTRY ORDERABLES Final Result Performing Organization Address [facility]/State/ZIP Co de Phone Number [facility] [address] [place] [address], [facility] [phone] from Last 3 Months Insurance [employer]MANA MEDICARE ADV HMO & PPO Advance Directives Documents on File Type Date Recorded Patient Chip Washer Expl anation Adv Directive/Living Will/POA 08/05/2018 3:14 PM Care Teams Business Insurance Agent Relationship Specialty Start Date End Date Jeffry Novak MD [address] [place] [phone] PCP - General Family Medicine 09/29/23 Malaika Wolf MD [address] [place] [address] Physician Hematology and Oncology 09/10/23
--- OUTSIDE RECORDS SUMMARY | 2025-02-18 13:36 | XMS_ITS | Encounter Summary ---
Author Organization [facility] Address [address] [facility] [place] [address] Care Team Providers Care Senior Director Finance Name Role Phone Denny Polo Primary Care Provider [phone] Malaika Wolf MD Unavailable Jeffry Novak MD Primary Care Provider [phone] Reason for Visit * Reason Onset Date Comments MEDICATION REFILL 06/12/2023 Encounter Details Date Type Department Care Team (Late st Contact Info) Description 06/12/2023 Refill [facility] - Hematology/Oncology [address] [place] [phone] Sakshi Sam MD [address] 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 Gender Identity Male 03/04/2022 6:00 PM CDT Sexual Orientation Not on file documented as of this encounter Plan of Treatment Not on file documented as of this encounter Visit Diagnoses Not on filedocumented in this encounter Care Teams Senior Director Finance Relationship Specialty Start Date End Date Denny Polo DO [address] [place] [address] PCP - General Internal Medicine 08/24/20 09/28/23 Jeffry Novak MD [address] [place] [phone] PCP - General Family Medicine 09/29/23 Malaika Wolf MD [address] [place] [address] Physician Hematology and Oncology 09/10/23 documented as of this encounter
--- OUTSIDE RECORDS SUMMARY | 2025-02-18 13:36 | XMS_ITS | Clinical Summary ---
Author Organization [facility] Address [address] [place] [address] Care Team Providers Care Worm Grower Name Role Phone Denny Polo DO Primary Care Provider [phone] Allergies No known active allergies Medications calcium [...] (01/22/2021): Added automatically from request for surgery [id number] Longstanding persistent atrial fibrillation 11/07 Vitamin D [...] Tikosyn as managed by Dr. Mendoza at [facility]. Continue Eliquis for 30 days [...] History Medical History Date Comments Atrial fibrillation (HCC) recurr ence DVT of lower extremity (deep venous thrombosis) (HCC) Subdural hematoma (HCC) x3 Presence of IVC filter Arthritis Clotting disorder 2004 Kidney stone 1996 Family History Medical [...] on file Legal Sex Male 11:37 AM BELL VALET Gender Identity Not on file Sexual Orientation Not on file Obstetrics History Last Filed Vital Signs Vital Sign Reading Time Taken Comments Blood Pressure 164/81 07/29/2022 2:46 PM BELL VALET Pulse 83 07/29/2022 2:46 PM BELL VALET Temperature 36.3 C (97.4 F) 07/29/2022 2:46 PM BELL VALET Respiratory Rate 18 10/04/2020 7:45 AM BELL VALET Oxygen Saturation 96% 10/04/2020 7:45 AM BELL VALET Inhaled Oxygen Concentration - - Weight 99.8 kg (220 lb) 07/29/2022 2:46 PM BELL VALET Height 190.5 cm (6' 3) 07/29/2022 2:46 PM BELL VALET Body Mass Index 27.5 07/29/2022 2:46 PM BELL VALET Plan of Treatment Health Maintenance Due Date [...] Fall Risk Assessment 10/04/2021 10/04/2020 Influenza Vaccine (Season Ended) 2025 06/28/2022, 05/16/2020, 06/10/2019, Additional history exists Medical Devices Implanted Type Area Labor Relations Director Device Identifier Shelf Expiration Date Model / Serial / Lot Ivc Filter- 5 Implanted:Qty: 1 on 09/20/2004 IVC Filter Right: Groin Depuy [employer] [id number] Attune Cruciate Retain Cementless Knee Left 8 Component Femoral - Sn/A - [id number] Implanted:Qty: 1 on 10/03/2020 by Koffi Liao MD at [facility] Other - see comments Left: Knee [employer] [id number] 03/07/2030 [id number] / N/A / [id number] [employer] [id number] Attune Cementless Rotate Platform Knee 10 Baseplate Tibial - Sn/A - [id number] Implanted:Qty: 1 on 10/03/2020 by Koffi Liao MD at [facility] Other - see comments Left: Knee [employer] [id number] 09/07/2029 [id number] / N/A / [id number] [employer] [id number] Attune 8mm Cruciate Retaining Rotate Platform Knee 8 Insert - Sn/A - [id number] Implanted:Qty: 1 on 10/03/2020 by Koffi Liao MD at [facility] Other - see comments Left: Knee [employer] [id number] 08/07/2025 [id number] / N/A / [id number] Procedures Procedure Name Priority Date/Time Associated Diagnosis [...] Sweet M.D. EMELY:emely 02:50 PM 02:50 PM [facility] [EOD] Narrative 12/18/2015 2:54 PM CDT EXAMINATION: Pre and post IV contrast CT the abdomen and pelvis. HISTORY: Chronic blood clots. Addison filter placed 06/2005. Increased leg pain. Kidney [...] abdomen and pelvis. HISTORY: Chronic blood clots. Addison filter placed 06/2005.Increased leg pain. Kidney stones [...] Sweet M.D. EMELY:emely 02:50 PM 02:50 PM [facility] [EOD] Himanshu Brito MD IMG CT PROCEDURES Final Re sult from Last 3 Months or Most Recently Relevant to Health Maintenance Insurance HUMANA CHOICE MEDICARE PPO HUMANA CHOICE MEDICARE PPO HUMANA CHOICE MEDICARE PPO Advance Directives For more information, please contact: [phone] Documents on File Type Date Recorded Patient Linking Machine Operator Expl anation ADVANCE DIRECTIVE 10/03/2020 9:53 AM ADVANCE DIRECTIVE 01/09/2018 11:21 AM ADVANCE DIRECTIVE 01/09/2018 Advance Di rective Checklist ADVANCE DIRECTIVE 02/02/2016 12:00 AM ABEL R OF HEAT PUMP INSTALLER FINANCIAL/MEDICAL * Full Code (Latest Code Status on File) Date Activated Date Inactivated Comments 10/03/2020 3:58 PM 10/04/2020 1:55 PM Care Teams Worm Grower Relationship Specialty Start Date End Date Denny Polo DO PCP - General Internal Medicine 04/06/19
== END 2025-02-18 13:33 | disposition home or self-care (01) ==
PROVIDERS: PCP Family Medicine; Visit Provider Family Medicine
DX: M79.89 Other specified soft tissue disorders (principal)
CPT/HCPCS: 93971

== ENCOUNTER 2025-02-24 13:02 | Emergency (ER) | payer MEDICARE, SELFPAY ==
--- NOTE | ~2025-02-24 | XR_ITS ---
EXAMINATION: XR chest 2V DATE: 02/24/2025 14:59 INDICATION: Shortness of breath. Left lower limb swelling. TECHNIQUE: PA and lateral views of the chest were obtained. COMPARISON: Chest CT dated 10/01/2019 FINDINGS: Mild streaky atelectasis/scarring at the lingula. No other airspace opacities, pulmonary edema, pleur al effusion or pneumothorax. The cardiomediastinal silhouette is normal. Left atrial appendage occlus ion clip. IMPRESSION: 1. Streaky atelectasis/scarring at the lingula. No other acute cardiopulmonary disease. Reviewed, dictated and finalized at location B.
[2025-02-24 13:18] VITALS: BP 145/74; PULSE 76; RESP 16; TEMP 36.7; O2SAT 100
--- OUTSIDE RECORDS SUMMARY | 2025-02-24 13:20 | XMS_ITS | Referral Summary ---
Author Organization [facility] Address [address] [place] [address] Care Team Providers Care Tractor Trailer Operator Name Role Phone Denny Polo DO Primary Care Provider [phone] Allergies No known active allergies Medications calcium [...] (01/22/2021): Added automatically from request for surgery [id number] Longstanding persistent atrial fibrillation 11/07 Vitamin D [...] Tikosyn as managed by Dr. Mendoza at [facility]. 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 Gender Identity Not on file Sexual Orientation Not on file Last Filed Vital Signs Vital Sign Reading Time Taken Comments Blood Pressure 164/81 07/29/2022 2:46 PM CONCRETE PIPE MACHINE OPERATOR Pulse 83 07/29/2022 2:46 PM CONCRETE PIPE MACHINE OPERATOR Temperature 36.3 C (97.4 F) 07/29/2022 2:46 PM CONCRETE PIPE MACHINE OPERATOR Respiratory Rate 18 10/04/2020 7:45 AM CONCRETE PIPE MACHINE OPERATOR Oxygen Saturation 96% 10/04/2020 7:45 AM CONCRETE PIPE MACHINE OPERATOR Inhaled Oxygen Concentration - - Weight 99.8 kg (220 lb) 07/29/2022 2:46 PM CONCRETE PIPE MACHINE OPERATOR Height 190.5 cm (6' 3) 07/29/2022 2:46 PM CONCRETE PIPE MACHINE OPERATOR Body Mass Index 27.5 07/29/2022 2:46 PM CONCRETE PIPE MACHINE OPERATOR Plan of Treatment Not on file Medical Devices Implanted Type Area Land Surveyor Assistant Device Identifier Shelf Expiration Date Model / Serial / Lot Ivc Filter- 5 Implanted:Qty: 1 on 09/20/2004 IVC Filter Right: Groin DepWoto [employer] Inc [id number] Attune Cruciate Retain Cementless Knee Left 8 Component Femoral - Sn/A - [id number] Implanted:Qty: 1 on 10/03/2020 by Koffi Liao MD at [facility] Other - see comments Left: Knee [employer] [id number] 03/07/2030 [id number] / N/A / [id number] [employer] [id number] Attune Cementless Rotate Platform Knee 10 Baseplate Tibial - Sn/A - [id number] Implanted:Qty: 1 on 10/03/2020 by Koffi Liao MD at [facility] Other - see comments Left: Knee [employer] [id number] 09/07/2029 [id number] / N/A / [id number] [employer] [id number] Attune 8mm Cruciate Retaining Rotate Platform Knee 8 Insert - Sn/A - [id number] Implanted:Qty: 1 on 10/03/2020 by Koffi Liao MD at [facility] Other - see comments Left: Knee [employer] [id number] 08/07/2025 [id number] / N/A / [id number] Procedures Procedure Name Priority Date/Time Associated Diagnosis [...] Fan M.D. EMELY:emely 02:50 PM 02:50 PM [facility] [EOD] Narrative 12/18/2015 2:54 PM CDT EXAMINATION: Pre and post IV contrast CT the abdomen and pelvis. HISTORY: Chronic blood clots. Dailey filter placed 06/2005. Increased leg pain. Kidney [...] Fan M.D. EMELY:emely 02:50 PM 02:50 PM [facility] [EOD] Himanshu Brito MD IM CT PROCEDURES Final Re sult from Last 3 Months or Most Recently Relevant to Health Maintenance Insurance HUMANA CHOICE MEDICARE PPO HUMANA CHOICE MEDICARE PPO HUMANA CHOICE MEDICARE PPO Advance Directives For more information, please contact: [phone] Documents on File Type Date Recorded Patient Lead Java J2Ee Developer Expl anation ADVANCE DIRECTIVE 10/03/2020 9:53 AM ADVANCE DIRECTIVE 01/09/2018 11:21 AM ADVANCE DIRECTIVE 01/09/2018 Advance Di rective Checklist ADVANCE DIRECTIVE 02/02/2016 12:00 AM ABEL R OF SALES REPRESENTATIVE RAW FIBERS FINANCIAL/MEDICAL * Full Code (Latest Code Status on File) Date Activated Date Inactivated Comments 10/03/2020 3:58 PM 10/04/2020 1:55 PM Care Teams Tractor Trailer Operator Relationship Specialty Start Date End Date Denny Polo DO PCP - General Internal Medicine 04/06/19
--- OUTSIDE RECORDS SUMMARY | 2025-02-24 13:20 | XMS_ITS | Encounter Summary ---
Author Organization [facility] Address [address] [place] [address] Care Team Providers Care Sales Account Associate Name Role Phone Amando Rooney DO Primary Care Provider [phone] Sarath Edward MD Primary Care Provider [phone] Denny Polo DO Primary Care Provider [phone] Malakia Wolf MD Unavailable Jeffry Novak MD Primary Care Provider [phone] Encounter Details Date Type Department Care Team (Late st Contact Info) Description 06/03/2013 [facility] Outpatient Visit [id number] Unknown, Provider Social History Tobacco Use Types Packs/Day Years Used Date Smoking Tobacco: Never Smokeless Tobacco: Never Alcohol Use Standard Drinks/Week Comments Yes 5 (1 standard drink = 0.6 oz pur e alcohol) Sex and Gender Information Value Date Recorded Sex Assigned at Male 03/04/2022 6:00 PM CDT Legal Sex Male 4:32 AM SOFTWARE 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 Gender Identity Male 03/04/2022 6:00 PM CDT Sexual Orientation Not on file documented as of this encounter Plan of Treatment Not on file documented as of this encounter Visit Diagnoses Not on filedocumented in this encounter Care Teams Sales Account Associate Relationship Specialty Start Date End Date Amando Rooney DO [address] [place] [address] PCP - General Family Medicine 01/27/13 02/04/18 Sarath Edward MD [address] [place] [phone] PCP - General 02/05/18 08/23/20 Denny Polo DO [address] [place] [address] PCP - General Internal Medicine 08/24/20 09/28/23 Jeffry Novak MD [address] [place] [id number] PCP - General Family Medicine 09/29/23 Malaika Wolf MD [address] [place] [phone] Physician Hematology and Oncology 09/10/23 documented as of this encounter
--- OUTSIDE RECORDS SUMMARY | 2025-02-24 13:20 | XMS_ITS | Clinical Summary ---
Author Organization [facility] Address [address] [place] [address] Care Team Providers Care Marketing Director Name Role Phone Denny Polo DO Primary Care Provider Allergies No known active allergies Medications calcium [...] (01/22/2021): Added automatically from request for surgery [id number] Longstanding persistent atrial fibrillation 11/07 Vitamin D [...] Tikosyn as managed by Dr. Mendoza at [facility]. 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 Gender Identity Not on file Sexual Orientation Not on file Obstetrics History Last Filed Vital Signs Vital Sign Reading Time Taken Comments Blood Pressure 164/81 07/29/2022 2:46 PM PHOTOGRAPHIC EQUIPMENT INSPECTOR Pulse 83 07/29/2022 2:46 PM PHOTOGRAPHIC EQUIPMENT INSPECTOR Temperature 36.3 C (97.4 F) 07/29/2022 2:46 PM PHOTOGRAPHIC EQUIPMENT INSPECTOR Respiratory Rate 18 10/04/2020 7:45 AM PHOTOGRAPHIC EQUIPMENT INSPECTOR Oxygen Saturation 96% 10/04/2020 7:45 AM PHOTOGRAPHIC EQUIPMENT INSPECTOR Inhaled Oxygen Concentration - - Weight 99.8 kg (220 lb) 07/29/2022 2:46 PM PHOTOGRAPHIC EQUIPMENT INSPECTOR Height 190.5 cm (6' 3) 07/29/2022 2:46 PM PHOTOGRAPHIC EQUIPMENT INSPECTOR Body Mass Index 27.5 07/29/2022 2:46 PM PHOTOGRAPHIC EQUIPMENT INSPECTOR Plan of Treatment Health Maintenance Due Date [...] history exists Medical Devices Implanted Type Area Forest Ecology Professor Device Identifier Shelf Expiration Date Model / Serial / Lot Ivc Filter- 5 Implanted:Qty: 1 on 09/20/2004 IVC Filter Right: Groin Depuy [employer] Inc [id number] Attune Cruciate Retain Cementless Knee Left 8 Component Femoral - Sn/A - [id number] Implanted:Qty: 1 on 10/03/2020 by Koffi Liao MD at [facility] Other - see comments Left: Knee [employer]uy [employer] Inc [id number] 03/07/2030 [id number] / N/A / [id number] [employer] [id number] Attune Cementless Rotate Platform Knee 10 Baseplate Tibial - Sn/A - [id number] Implanted:Qty: 1 on 10/03/2020 by Koffi Liao MD at [facility] Other - see comments Left: Knee [employer]uy [employer] Inc [id number] 09/07/2029 [id number] / N/A / [id number] [employer] [id number] Attune 8mm Cruciate Retaining Rotate Platform Knee 8 Insert - Sn/A - [id number] Implanted:Qty: 1 on 10/03/2020 by Koffi Liao MD at [facility] Other - see comments Left: Knee [employer]uy [employer] Inc [id number] 08/07/2025 [id number] / N/A / [id number] Procedures Procedure Name Priority Date/Time Associated Diagnosis [...] Sweet M.D. EMELY:emely 02:50 PM 02:50 PM [facility] [EOD] Narrative 12/18/2015 2:54 PM CDT EXAMINATION: Pre and post IV contrast CT the abdomen and pelvis. HISTORY: Chronic blood clots. Walden filter placed 06/2005. Increased leg pain. Kidney [...] abdomen and pelvis. HISTORY: Chronic blood clots. Walden filter placed 06/2005.Increased leg pain. Kidney stones [...] Sweet M.D. EMELY:emely 02:50 PM 02:50 PM [facility] [EOD] Himanshu Brito MD IMG CT PROCEDURES Final Re sult from Last 3 Months or Most Recently Relevant to Health Maintenance Insurance HUMANA CHOICE MEDICARE PPO HUMANA CHOICE MEDICARE PPO HUMANA CHOICE MEDICARE PPO Advance Directives For more information, please contact: [phone] Documents on File Type Date Recorded Patient Program Support Assistant Expl anation ADVANCE DIRECTIVE 10/03/2020 9:53 AM ADVANCE DIRECTIVE 01/09/2018 11:21 AM ADVANCE DIRECTIVE 01/09/2018 Advance Di rective Checklist ADVANCE DIRECTIVE 02/02/2016 12:00 AM ABEL R OF RESEARCH PHYSIOLOGIST FINANCIAL/MEDICAL * Full Code (Latest Code Status on File) Date Activated Date Inactivated Comments 10/03/2020 3:58 PM 10/04/2020 1:55 PM Care Teams Marketing Director Relationship Specialty Start Date End Date Denny Polo DO PCP - General Internal Medicine 04/06/19
--- OUTSIDE RECORDS SUMMARY | 2025-02-24 13:20 | XMS_ITS | Clinical Summary ---
Author Organization [facility] Address [address] [place] [address] Care Team Providers Care Program Analyst Name Role Phone Malaika Wolf MD Unavailable Jeffry Novak MD Primary Care Provider [phone] Source Comments [facility],non-owned Affiliates and Associated Physician Practices is amultiple site organization consisting of ambulatory clinics and hospital sitesin [place], [place], [place] and [place]. This disclosure is being madepursuant to the Care Everywhere program and may not contain all information available regarding this patient. Last updated 18.[facility] Allergies No known active allergies Medications * [...] Tikosyn as managed by Dr. Mendoza at [facility]. Continue Eliquis for 30 days after cardioversion. Follow-up as scheduled with Dr. Mendoza's team in May and with Dr. Clarke in August or sooner PRN. Resolved Problems Problem Noted Date Diagnosed Date Resolved Date DVT (deep venous thrombosis) 06/05/2014 Fluttering heart 06/05/2014 Encounters Date Type Department Care Team Description 02/17/2025 Orders Only [facility] - Cardiology [address] [place] [address], [address] [phone] Daniel Mccracken RN Persistent atrial fibrillation (HCC) ; Atypical atrial flutter (HCC) 02/10/2025 10:00 AM CDT Office Visit [facility] - Cardiology [address] [place] [address], [address] [phone] Manuelito Clarke MD Atypical atrial flutter (HCC) (Primary Dx); HTN (hypertension), benign 02/10/2025 Travel 02/01/2025 Refill [facility] - Cardiology [address] [place] [address], [address] [phone] Manuelito Clarke MD Refill Request 01/07/2025 1:52 PM CDT - 01/07/2025 11:59 PM CDT Hospital Encounter [facility] [address] [place] [address] Malaika Wolf MD Discharge Disposition: Home or Self Care 01/07/2025 Travel 01/06/2025 Telephone [facility] [address] [place] [address] Fina Pike 01/06/2025 Orders Only [facility] - Hematology/Oncology [address] [place] [address] Malaika Wolf MD Chronic deep vein thrombosis [...] PM CDT Legal Sex Male 4:32 AM CHEF FRENCH Gender Identity Male 03/04/2022 6:00 PM CDT [...] this topic Medical Devices Implanted Type Area Chip Crusher Operator Device Identifier Shelf Expiration Date Model / Serial / Lot Mesh Srg Ultrapro 4.7x2.4in Lg Onlay Implanted:Qty: 1 on 08/03/2018 by Lionel Bee MD at [facility] Right: [employer] 02/06/2020 [facility] / / [id number] Description:DOCUMENTED BY Julianne Harrison Procedures Procedure Name [...] * EKG 12-Lead (02/10/2025 10:21 AM CDT) [facility] Ventricular Rate 59 BPM [facility] Atrial Rate 59 BPM [facility] P-R Interval 168 ms [facility] QRS Duration ms 90 ms [facility] Q-T Interval ms 446 ms [facility] QTC Calculation (Bezet) 441 ms [facility] Calculated P [place] 92 degrees [facility] Calculated R [place] 5 degrees [facility] Calculated T [place] 36 degrees [facility] Interpretation EKG SINUS BRADYCARDIA WITH PREMATURE ATRIAL COMPLEXES OTHERWISE NORMAL ECG WHEN COMPARED WITH ECG OF 19-AUG-2024 09:58, PREMATURE ATRIAL COMPLEXES ARE NOW PRESENT Confirmed by MANUELITO CLARKE MD ([id number]) on 02/12/2025 10:31:47 AM [facility] 02/10/2025 10:2 1 AM CDT 02/12/2025 10:31 AM CDT us Manuelito Clarke MD ECG ORDERABLES Edited Result - Final [facility] * (ABNORMAL) CBC WITH DIFFERENTIAL (01/07/2025 2:09 PM CDT) [facility] WBC 3.3(L) 4.0 - 10.7 x10E9/L 01/07/2025 2:27 PM CDT [facility] RBC Count 4.59 4.30 - 5.80 x10E12/L 01/07/2025 2:27 PM CDT [facility] Hemoglobin 15.2 13.3 - 17.5 g/dL 01/07/2025 2:27 PM CDT [facility] Hematocrit 43.8 38.7 - 51.1 % 01/07/2025 2:27 PM [facility] MCV 95.4 80.0 - 98.0 fL 01/07/2025 2:27 PM [facility] MCH 33.1 26.7 - 33.6 pg 01/07/2025 2:27 PM [facility] MCHC 34.7 31.7 - 36.3 g/dL 01/07/2025 2:27 PM [facility] RDW-CV 13.1 11.3 - 14.8 % 01/07/2025 2:27 PM [facility] Platelet Count 173 150 - 420 x10E9/L 01/07/2025 2:27 PM [facility] MPV 10.0 7.8 - 11.4 fL 01/07/2025 2:27 PM [facility] Preliminary Absolute Neutrophil 2.16 1.60 - 7.50 x10E9/L 01/07/2025 2:27 PM [facility] Neutrophil % 66.3 41.0 - 74.0 % 01/07/2025 2:27 PM [facility] Lymphocyte % 19.3 17.0 - 47.0 % 01/07/2025 2:27 PM [facility] Monocyte % 10.1 3.0 - 11.0 % 01/07/2025 2:27 PM [facility] Eosinophil % 2.5 0.0 - 7.0 % 01/07/2025 2:27 PM [facility] Basophil % 1.2 0.0 - 1.6 % 01/07/2025 2:27 PM [facility] Immature Granulocytes % 0.6 0.0 - 1.0 % 01/07/2025 2:27 PM [facility] Neutrophil Absolute 2.16 1.60 - 7.50 x10E9/L 01/07/2025 2:27 PM [facility] Lymphocyte Absolute 0.63(L) 1.00 - 4.40 x10E9/L 01/07/2025 2:27 PM [facility] Monocyte Absolute 0.33 0.15 - 1.00 x10E9/L 01/07/2025 2:27 PM [facility] Eosinophil Absolute 0.08 0.00 - 0.60 x10E9/L 01/07/2025 2:27 PM [facility] Basophil Absolute 0.04 0.00 - 0.13 x10E9/L 01/07/2025 2:27 PM [facility] Blood BLOOD SPECIMEN / Unknown Venipuncture / Unknown 01/07/2025 2:09 PM CDT 01/07/2025 2:17 PM CDT us Malaika Wolf MD LAB - HEMATOLOGY ORDERABLES Lucina babcock Result [facility] [address] [place] [phone], [facility] [phone] * (ABNORMAL) COMPREHENSIVE METABOLIC PANEL (01/07/2025 2:09 PM CDT) BUN 15 7 - 26 mg/dL 01/07/2025 2:48 PM [facility] Creatinine 0.84 0.71 - 1.16 mg/dL 01/07/2025 2:48 PM [facility] Sodium 142 136 - 145 mmol/L 01/07/2025 2:48 PM [facility] Potassium 4.2 3.5 - 4.5 mmol/L 01/07/2025 2:48 PM [facility] Chloride 107 98 - 107 mmol/L 01/07/2025 2:48 PM [facility] CO2 27 22 - 29 mmol/L 01/07/2025 2:48 PM [facility] Glucose 109(H) 70 - 99 mg/dL 01/07/2025 2:48 PM [facility] Calcium 9.6 8.4 - 10.2 mg/dL 01/07/2025 2:48 PM [facility] Protein Total 6.8 6.0 - 8.3 g/dL 01/07/2025 2:48 PM [facility] Albumin 4.1 3.4 - 5.0 g/dL 01/07/2025 2:48 PM [facility] Bilirubin Total 1.0 0.2 - 1.2 mg/dL 01/07/2025 2:48 PM [facility] Alkaline Phosphatase 74 40 - 150 U/L 01/07/2025 2:48 PM [facility] ALT 22 5 - 55 U/L 01/07/2025 2:48 PM [facility] AST 21 5 - 34 U/L 01/07/2025 2:48 PM [facility] Anion Gap 8 6 - 16 01/07/2025 2:48 PM [facility] BUN/Creatinine Ratio 18 7 - 23 01/07/2025 2:48 PM [facility] Osmolality Calculated 295 275 - 295 mOsm/kg 01/07/2025 2:48 PM [facility] Albumin/Globulin Ratio 1.5 1.1 - 2.3 01/07/2025 2:48 PM [facility] eGFR by CKD-EPI >90 >=90 mL/min/1.7 3 m2 01/07/2025 2:48 PM [facility] Blood BLOOD SPECIMEN / Unknown Venipuncture / Unknown 01/07/2025 2:09 PM CDT 01/07/2025 2:17 PM T Malaika Wolf MD LAB - CHEMISTRY ORDERABLES Final Result Performing Organization Address [facility]/State/ZIP Co de Phone Number [facility] [address] [place] [address], [facility] [phone] from Last 3 Months Insurance HUMANA MEDICARE ADV HMO & PPO Advance Directives Documents on File Type Date Recorded Patient Experimental Rocketsled Mechanic Expl anation Adv Directive/Living Will/POA 08/05/2018 3:14 PM Care Teams Program Analyst Relationship Specialty Start Date End Date Jeffry Novak MD [address] [place] [phone] PCP - General Family Medicine 09/29/23 Malaika Wolf MD [address] [place] [address] Physician Hematology and Oncology 09/10/23
--- OUTSIDE RECORDS SUMMARY | 2025-02-24 13:20 | XMS_ITS | Encounter Summary ---
Author Organization [facility] Health Address [address] [facility] [place] [address] Care Team Providers Care Senior Software Development Engineer Name Role Phone Amando Rooney DO Primary Care Provider [phone] Sarath Edward MD Primary Care Provider [phone] Denny Polo DO Primary Care Provider [phone] Malaika Wolf MD Unavailable Jeffry Novak MD Primary Care Provider [phone] Encounter Details Date Type Department Care Team (Late st Contact Info) Description 01/09/2012 [facility] Outpatient Visit [id number] Amando Rooney DO [address] [place] [address] Social History Tobacco Use Types Packs/Day Years Used Date Smoking Tobacco: Never Assessed Sex and Gender Information Value Date Recorded Sex Assigned at Male 03/04/2022 6:00 PM CDT Legal Sex Male 4:32 AM FLATWORK PRESSER Gender Identity Male 03/04/2022 6:00 PM CDT Sexual Orientation Not on file documented as of this encounter Plan of Treatment Not on file documented as of this encounter Visit Diagnoses Not on filedocumented in this encounter Care Teams Senior Software Development Engineer Relationship Specialty Start Date End Date Amando Rooney DO [address] [place] [address] PCP - General Family Medicine 01/27/13 02/04/18 Sarath Edward MD [address] [place] [address] PCP - General 02/05/18 08/23/20 Denny Polo DO [address] [place] [address] PCP - General Internal Medicine 08/24/20 09/28/23 Jeffry Novak MD [address] [place] [phone] PCP - General Family Medicine 09/29/23 Malaika Wolf MD [address] [place] [address] Physician Hematology and Oncology 09/10/23 documented as of this encounter
--- OUTSIDE RECORDS SUMMARY | 2025-02-24 13:20 | XMS_ITS | Continuity of Care Document ---
Author Organization [facility] Address [address] [place] [address] Phone Care Team Providers Care International Travel Consultant Name Role Phone Jairo Webb MD Unavailable Unavailable Allergies, Adverse Reactions, Alerts Substance Reaction Status Criticality No Known Allergies Active No Inform ation Medications Medication Instructions Dosage Effective Dates (start - stop) Status Comments No Drug Therapy Prescribed Procedures Procedure Date RADEX [facility] 1 VIEW OFFICE/OUTPATIENT VISIT EST OFFICE CONSULTATION RADEX ISIDRO COMPL MINIMUM 2 VIEWS 016 Advance Directives Directive Yes / No Effective Date File Name No Information Encounters Encounter Description Practice Location Reason(s) For Visit Diagnoses Date Provider Providers Copied on Encounter [facility], [address], [place], [address], [place] tel:[phone] [facility] No Information 6 Tracey Gill. [address] [facility] [place], [place], [id number] . tel: [phone] OFFICE/OUTPAT IENT VISIT EST [facility], [address], [place], [address], [place] tel:[phone] [facility] Pain in right shoulderIncompl ete tear of right rotator cuffClosed fracture of right scapula with routine healing, unspecified part of scapula, subsequent encounter 6 Dusek Jairo. [address] [facility] [place], [id number] . tel: [phone] OFFICE CONSULTATION [facility], [address], [place], [address], [place] tel:[phone] [facility] Right shoulder pain (chief complaint) Closed fracture of right scapula, unspecified part of scapula, initial encounterIncomp lete tear of right rotator cuff 6 Zachariah Thompson. [address], [place], [place], [id number] . tel: [phone] Referring Provider: Sarath Levin, [address], [place], [address]. tel:[phone] Family History Family Member Type Diagnosis Age At Onset Father Problem (finding) osteoarthritis Father Problem (finding) atrial fibrillation Payers Payer name Insurance type Covered republican ID Nicole kelly(s) Blue Access PPO [id number] [id number] Social History Type Description Quantity Date Captured [...]
--- OUTSIDE RECORDS SUMMARY | 2025-02-24 13:20 | XMS_ITS | Encounter Summary ---
Author Organization [facility] Address [address] [facility] [place] [address] Care Team Providers Care Industrial Sociologist Name Role Phone Denny Polo Primary Care Provider [phone] Malaika Wolf MD Unavailable Jeffry Novak MD Primary Care Provider [phone] Reason for Visit * Reason Onset Date Comments MEDICATION REFILL 06/12/2023 Encounter Details Date Type Department Care Team (Late st Contact Info) Description 06/12/2023 Refill [facility] - Hematology/Oncology [address] [place] [phone] Sakshi Sam MD [address] [facility] [place] [phone] MEDICATION REFILL Social History Tobacco Use Types Packs/Day Years Used Date Smoking Tobacco: Never Smokeless Tobacco: Never Alcohol Use Standard Drinks/Week Comments Yes 5 (1 standard drink = 0.6 oz pur e alcohol) occ PHQ-2 Answer Date Recorded PHQ2 TOTAL SCORE 0 07/25/2022 Sex and Gender Information Value Date Recorded Sex Assigned at Male 03/04/2022 6:00 PM CDT Legal Sex Male 4:32 AM FIRMWARE SOFTWARE VERIFICATION ENGINEER Gender Identity Male 03/04/2022 6:00 PM CDT Sexual Orientation Not on file documented as of this encounter Plan of Treatment Not on file documented as of this encounter Visit Diagnoses Not on filedocumented in this encounter Care Teams Industrial Sociologist Relationship Specialty Start Date End Date Denny Polo DO [address] [place] [address] PCP - General Internal Medicine 08/24/20 09/28/23 Jeffry Novak MD [address] [place] [phone] PCP - General Family Medicine 09/29/23 Malaika Wolf MD [address] [place] [address] Physician Hematology and Oncology 09/10/23 documented as of this encounter
--- OUTSIDE RECORDS SUMMARY | 2025-02-24 13:20 | XMS_ITS | Encounter Summary ---
Author Organization [facility] Health Address [address] [facility] [place] [address] Care Team Providers Care Senior Project Architect Name Role Phone Amando Rooney DO Primary Care Provider [phone] Sarath Edward MD Primary Care Provider [phone] Denny Polo DO Primary Care Provider [phone] Malaika Wolf MD Unavailable Jeffry Novak MD Primary Care Provider [phone] Encounter Details Date Type Department Care Team (Late st Contact Info) Description 05/20/2013 [facility] Outpatient Visit [id number] Pcp, [place] [address] Social History Tobacco Use Types Packs/Day Years Used Date Smoking Tobacco: Never Smokeless Tobacco: Never Alcohol Use Standard Drinks/Week Comments Yes 5 (1 standard drink = 0.6 oz pur e alcohol) Sex and Gender Information Value Date Recorded Sex Assigned at Male 03/04/2022 6:00 PM CDT Legal Sex Male 4:32 AM PLATE PREPARER Gender Identity Male 03/04/2022 6:00 PM CDT Sexual Orientation Not on file documented as of this encounter Plan of Treatment Not on file documented as of this encounter Visit Diagnoses Not on filedocumented in this encounter Care Teams Senior Project Architect Relationship Specialty Start Date End Date Amando Rooney DO [address] [place] [address] PCP - General Family Medicine 01/27/13 02/04/18 Sarath Ewdard MD [address] [place] [address] PCP - General 02/05/18 08/23/20 Denny Polo DO [address] [place] [address] PCP - General Internal Medicine 08/24/20 09/28/23 Jeffry Novak MD [address] [place] [phone] PCP - General Family Medicine 09/29/23 Malaika Wolf MD [address] [place] [address] Physician Hematology and Oncology 09/10/23 documented as of this encounter
--- OUTSIDE RECORDS SUMMARY | 2025-02-24 13:20 | XMS_ITS | Encounter Summary ---
Author Organization [facility] Address [address] [facility] [place] [address] Care Team Providers Care Biomathematician Name Role Phone Amando Rooney DO Primary Care Provider [phone] Sarath Edward MD Primary Care Provider [phone] Denny Polo DO Primary Care Provider [phone] Malaika Wolf MD Unavailable Jeffry Novak MD Primary Care Provider [phone] Encounter Details Date Type Department Care Team (Late st Contact Info) Description 07/22/2012 [facility] Outpatient Visit [facility] - Family Medicine [address] [place] [address] Amando Rooney DO [address] [place] [address] Social History Tobacco Use Types Packs/Day Years Used Date Smoking Tobacco: Never Smokeless Tobacco: Never Alcohol Use Standard Drinks/Week Comments Yes 5 (1 standard drink = 0.6 oz pur e alcohol) Sex and Gender Information Value Date Recorded Sex Assigned at Male 03/04/2022 6:00 PM CDT 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 Gender Identity Male 03/04/2022 6:00 PM CDT Sexual Orientation Not on file documented as of this encounter Plan of Treatment Not on file documented as of this encounter Visit Diagnoses Not on filedocumented in this encounter Care Teams Biomathematician Relationship Specialty Start Date End Date Amando Rooney DO [address] [place] [phone] PCP - General Family Medicine 01/27/13 02/04/18 Sarath Edward MD [address] [place] [address] PCP - General 02/05/18 08/23/20 Denny Polo DO [address] [address] PCP - General Internal Medicine 08/24/20 09/28/23 Jeffry Novak MD [address] [place] [phone] PCP - General Family Medicine 09/29/23 Malaika Wolf MD [address] [place] [address] Physician Hematology and Oncology 09/10/23 documented as of this encounter
--- NOTE | 2025-02-24 14:25 | ED_ITS ---
HPI - Extremity Problem General Chief complaint: Extremity Problem,Nontraumatic Stated complaint: I got something going on with my left calf Time Seen by Provider: 02/24/25 14:04 Source: patient and RN notes reviewed Mode of arrival: ambulatory Limitations: no limitations History of Present Illness HPI Narrative: 74-year-old white male in the emergency room for complaints of left lower extremity swelling. Patient has hx of blood clots to legs with IVC filter placed in the early . Patient states that swelling to left lower extremity started about a week ago on Friday contact his primary care provider and was sent to get ultrasound, obtained on 18 February 2025, no clot found. The patient sees cardiology prescribed furosemide which she has yet to take. The patient denies fevers, chills, CP, redness, loss of feeling to LLE. Pt currently on Xarelto and Tikosyn for Afib/flutter. Pt recently started wearing compression stocking, not on currently, per PCP direction. Pt endorses intermittent SOB at night with sleep, advised to get sleep study per PCP and holter monitor ordered for wear. 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 Complaint: extremity pain and extremity swelling Onset (ago): week(s) Location: left and lower extremity Exacerbating factors: palpation Context: history of DVT Related Data Home Medications ?Medication ?Instructions ?Recorded ?Confirmed ?Last Taken ?Type calcium carbonate 500 mg PO DAILY 10/06/20 07/20/24 08/06/22 History dofetilide 500 mcg capsule 500 mcg PO BID 02/28/22 07/20/24 08/12/22 History (Tikosyn) multivitamin 1 tablet PO DAILY 09/23/23 07/20/24 Unknown History ibuprofen 200 mg tablet 200 mg PO Q6H PRN 08/18/24 Unknown History tamsulosin 0.4 mg capsule mg PO 10/26/24 Unknown History furosemide 20 mg tablet (Lasix) 20 mg PO BID 02/16/25 Unknown History Allergies Allergy/AdvReac Type Severity Reaction Status Date / Time No Known Allergies Allergy Verified 08/18/24 08:10 Review of Systems 2 Review of Systems: CONSTITUTIONAL: Denies fever, chills, or sweats. EYES: Denies visual changes, redness, or discharge. ENT: Denies rhinorrhea, congestion, sore throat, or otalgia. CARDIOVASCULAR: Denies chest pain, palpitations, or edema. RESPIRATORY: Denies cough or dyspnea. Endorses gasping and SOB with waking intermittently. GASTROINTESTINAL: Denies abdominal pain, nausea, vomiting, or diarrhea. GENITOURINARY: Denies dysuria or hematuria. SKIN: Denies rash or itching. Endorses LLE swelling X1 week. MUSCULOSKELETAL: Denies back pain, joint pain, or myalgia. NEUROLOGIC: Denies headache, numbness, or weakness. PSYCHIATRIC: Denies anxiety or depression. PMFSH Past Medical History Medical History Chronic deep vein thrombosis (DVT) of right lower extremity Right inguinal hernia Elevated blood pressure reading in office without diagnosis of hypertension Coagulopathy Deep vein thrombosis Acute hip pain History of atrial fibrillation without current medication Surgical History Surgical History S/P arthroscopic surgery of right knee Total knee replacement status Status post ablation of atrial fibrillation History of embolic filter insertion Family History Family History Mother Patient's mother is in good health Family history of Alzheimer's disease Father Patient's father is in good health Family history of cardiac disorder Other Family history of cardiovascular disease Social History Social History Smoking status: Never smoker Second hand tobacco smoke exposure: No Alcohol intake: current Drinks per week: 4 Substance use: never Substance use type: does not use Do You Feel Safe in your Home?: Yes Lack of Transportation: No Lack of Food: Never True Current Housing: I Have Housing Concerned About Future Housing: No Difficulty Paying Gas/Electric Bills: No Difficulty Paying for Meds: No Currently Unemployed: No Education: Trade/Vocational Certificate Difficulty w/ Childcare or Family Care: No Living arrangements: with friend(s) Additional living arrangements comments: LIVES WITH SIGNIFICANT OTHER Occupation/Education: retired Gender identity (if verbalized by the patient): Male Spiritual care concerns: No Agree to blood products: Yes Exam 2 Narrative: GENERAL: Well-appearing, well-nourished, and in no acute distress. HEAD: Normocephalic, atraumatic. CHEST: Clear to auscultation. No respiratory distress. HEART: Regular rate and rhythm. No murmur heard. Normal peripheral pulses. ABDOMEN: Soft, nontender, nondistended, normal active bowel sounds. EXTREMITIES: Normal range of motion. 2+ pitting edema to RLE, 4+ pitting edema to LLE SKIN: Warm, dry, no rash. NEURO: No focal deficits. Alert and oriented x3. PSYCH: Normal mood and affect. Course Vital Signs Vital signs: Vital Signs Temperature 36.7 C 02/24/25 13:18 Pulse Rate 76 02/24/25 13:18 Respiratory Rate 16 02/24/25 13:18 Blood Pressure 145/74 H 02/24/25 13:18 Pulse Oximetry 100 02/24/25 13:18 Oxygen Delivery Room Air 02/24/25 13:18 Temperature 36.5 C 02/24/25 15:18 Pulse Rate 56 L 02/24/25 15:18 Respiratory Rate 18 02/24/25 15:18 Blood Pressure 147/76 H 02/24/25 15:18 Pulse Oximetry 98 02/24/25 15:18 Oxygen Delivery Room Air 02/24/25 13:18 MDM - Extremity (Nontraumatic) MDM Narrative Medical decision making narrative: Vital signs stable. Cbc normal and shows no signs of infection. BMP shows a slightly elevated level at 185. BMP within normal limits. CXR showed mild streaky atelectasis/scarring at the lingula, per radiologist read. Patient advised to take Lasix as ordered by Cardiology and continue wear of compression stockings. Patient advised he may go on his trip, that he should just get out of the vehicle every hour so and walk around/move his legs. Patient to follow- up with primary care and cardiology as scheduled. Return to the emergency room if worsening symptoms develop. Differential Diagnosis Differential diagnosis: Likely cellulitis, superficial thrombophlebitis, lower extremity edema and deep vein thrombosis of lower extremity Medical Records Attestation: I reviewed the patient's medical records. Lab Data Attestation: I reviewed the patient's lab results. 02/24/25 15:08 02/24/25 15:08 Labs: Lab Results 02/24/25 Range/Units 15:08 WBC 5.3 (4.5-10.0) K/mm3 RBC 4.37 L (4.6-6.20) M/mm3 Hgb 14.3 (14.0-18.0) g/dL Hct 41.9 L (42.0-52.0) % MCV 95.9 (80-100) fl MCH 32.7 (26-34) pg MCHC 34.1 (32-36) g/dl RDW 12.9 (11.5-14.5) % Plt Count 185 (150-375) k/mm3 MPV 9.6 (7.4-10.4) fl Immature Gran % (Auto) 0.4 (0-0.5) % Neut % (Auto) 72.1 (45.5-73.1) % Lymph % (Auto) 14.8 L (18.3-44.2) % [place] % (Auto) 9.3 H (2.6-8.5) % Eos % (Auto) 2.3 (0-4.4) % Baso % (Auto) 1.1 (0.2-1.2) % Lymph # (Auto) 0.78 L (0.9-3.2) K/mm3 [place] # (Auto) 0.5 (0.1-0.6) K/mm3 Eos # (Auto) 0.1 (0-0.3) K/mm3 Baso # (Auto) 0.1 (0.0-0.1) K/mm3 Abs Immat Gran (auto) 0.02 (0.00-0.031) K/mm3 Absolute Neuts (auto) 3.8 (1.3-6.7) K/mm3 Absolute Nucleated RBC 0.000 (0.0-0.012) K/mm3 Nucleated RBC % 0.0 (0.0-0.2) % Sodium 140 (137-145) mmol/L Potassium 4.2 (3.4-5.0) mmol/L Chloride 105 (98-107) mmol/L Carbon Dioxide 29 (22-30) mmol/L Anion Gap 6 (4-12) mmol/L BUN 15 (9-20) mg/dL Creatinine 0.83 (0.7-1.3) mg/dL Estim Creat Clear Calc 85 ml/min Estimated GFR > 60 (59 - ) Glucose 102 (65-110) mg/dL Calcium 10.0 (8.4-10.2) mg/dL NT-Pro-B Natriuret Pep 185 H (19.9-100) pg/mL Imaging Data Radiologist's impression: ITS Impressions Chest X-Ray 02/24/25 15:03 IMPRESSION: 1. Streaky atelectasis/scarring at the lingula. No other acute cardiopulmonary disease. Discharge Plan Discharge Clinical Impression: Left leg swelling Patient Disposition: Home Condition: Stable Instructions: Antibiotic Form, Leg Edema (ED) Additional Instructions: Take Lasix as prescribed and wear compression stockings Patient Language: Malay Prescriptions: No Action dofetilide [Tikosyn] 500 mcg capsule 500 mcg PO BID Patient Comments: TAKES AT 0900 & 2100 tamsulosin 0.4 mg capsule PO calcium carbonate 500 mg calcium (1,250 mg) tablet 500 mg PO DAILY multivitamin Tablet 1 tablet PO DAILY ibuprofen 200 mg tablet 200 mg PO Q6H PRN triamcinolone acetonide 0.1 % cream 1 applic topical BID Qty: 30 0RF furosemide [Lasix] 20 mg tablet 20 mg PO BID Xarelto 10 mg tablet 10 mg PO DAILY Qty: 90 1RF sildenafil 100 mg tablet See Rx Instructions .ROUTE .COMPLEX Qty: 6 6RF Dose Instruction: TAKE 1 TABLET BY MOUTH EVERY DAY NEEDED 30 MINUTES-4 HOURS PRIOR TO SEXUAL ACTIVITY Rx Instructions: TAKE 1 TABLET BY MOUTH EVERY DAY NEEDED 30 MINUTES-4 HOURS PRIOR TO SEXUAL ACTIVITY Follow-up/Referrals: Jeffry Novak MD [Primary Care Provider] -
--- OUTSIDE RECORDS SUMMARY | 2025-02-24 14:54 | XMS_ITS | Encounter Summary ---
Author Organization [facility] Address [address] [place] [address] Care Team Providers Care Capping Machine Operator Name Role Phone Amando Rooney DO Primary Care Provider [phone] Sarath Edward MD Primary Care Provider [phone] Denny Polo DO Primary Care Provider [phone] Malaika Wolf MD Unavailable Jeffry Novak MD Primary Care Provider [phone] Encounter Details Date Type Department Care Team (Late st Contact Info) Description 07/22/2012 [facility] Outpatient Visit [facility] - Family Medicine [address] [place] [address] Amando Rooney DO [address] [place] [address] Social History Tobacco Use Types Packs/Day Years Used Date Smoking Tobacco: Never Smokeless Tobacco: Never Alcohol Use Standard Drinks/Week Comments Yes 5 (1 standard drink = 0.6 oz pur e alcohol) Sex and Gender Information Value Date Recorded Sex Assigned at Male 03/04/2022 6:00 PM CDT 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 Gender Identity Male 03/04/2022 6:00 PM CDT Sexual Orientation Not on file documented as of this encounter Plan of Treatment Not on file documented as of this encounter Visit Diagnoses Not on filedocumented in this encounter Care Teams Capping Machine Operator Relationship Specialty Start Date End Date Amando Rooney DO [address] [place] [phone] PCP - General Family Medicine 01/27/13 02/04/18 Sarath Edward MD [address] [place] [phone] PCP - General 02/05/18 08/23/20 Denny Polo DO [address] [address] PCP - General Internal Medicine 08/24/20 09/28/23 Jeffry Novak MD [address] [place] [phone] PCP - General Family Medicine 09/29/23 Malaika Wolf MD [address] [place] [address] Physician Hematology and Oncology 09/10/23 documented as of this encounter
--- OUTSIDE RECORDS SUMMARY | 2025-02-24 14:54 | XMS_ITS | Encounter Summary ---
Author Organization [facility] Address [address] [facility] [place] [address] Care Team Providers Care Business Operations Director Name Role Phone Denny Polo Primary Care Provider Malaika Wolf MD Unavailable Jeffry Novak MD Primary Care Provider [phone] Reason for Visit * Reason Onset Date Comments MEDICATION REFILL 06/12/2023 Encounter Details Date Type Department Care Team (Late st Contact Info) Description 06/12/2023 Refill [facility] - Hematology/Oncology [address] [place] [phone] Sakshi Sam MD [address] [facility] [place] [phone] MEDICATION REFILL Social History Tobacco Use Types [...] CDT 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 Gender Identity Male 03/04/2022 6:00 PM CDT Sexual Orientation Not on file documented as of this encounter Plan of Treatment Not on file documented as of this encounter Visit Diagnoses Not on filedocumented in this encounter Care Teams Business Operations Director Relationship Specialty Start Date End Date Denny Polo DO [address] [place] [address] PCP - General Internal Medicine 08/24/20 09/28/23 Jeffry Novak MD [address] [place] [phone] PCP - General Family Medicine 09/29/23 Malaika Wolf MD [address] [place] [address] Physician Hematology and Oncology 09/10/23 documented as of this encounter
--- OUTSIDE RECORDS SUMMARY | 2025-02-24 14:54 | XMS_ITS | Clinical Summary ---
Author Organization [facility] Address [address] [place] [address] Care Team Providers Care Forestry Extension Specialist Name Role Phone Denny Polo DO Primary Care Provider [phone] Allergies No known active allergies Medications calcium [...] (01/22/2021): Added automatically from request for surgery [id number] Longstanding persistent atrial fibrillation 11/07 Vitamin D [...] Tikosyn as managed by Dr. Mendoza at [facility]. 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 Gender Identity Not on file Sexual Orientation Not on file Obstetrics History Last Filed Vital Signs Vital Sign Reading Time Taken Comments Blood Pressure 164/81 07/29/2022 2:46 PM ECONOMIC HISTORY TEACHER Pulse 83 07/29/2022 2:46 PM ECONOMIC HISTORY TEACHER Temperature 36.3 C (97.4 F) 07/29/2022 2:46 PM ECONOMIC HISTORY TEACHER Respiratory Rate 18 10/04/2020 7:45 AM ECONOMIC HISTORY TEACHER Oxygen Saturation 96% 10/04/2020 7:45 AM ECONOMIC HISTORY TEACHER Inhaled Oxygen Concentration - - Weight 99.8 kg (220 lb) 07/29/2022 2:46 PM ECONOMIC HISTORY TEACHER Height 190.5 cm (6' 3) 07/29/2022 2:46 PM ECONOMIC HISTORY TEACHER Body Mass Index 27.5 07/29/2022 2:46 PM ECONOMIC HISTORY TEACHER Plan of Treatment Health Maintenance Due Date [...] history exists Medical Devices Implanted Type Area Sharebroker Device Identifier Shelf Expiration Date Model / Serial / Lot Ivc Filter- 5 Implanted:Qty: 1 on 09/20/2004 IVC Filter Right: Groin Depuy Orthopaed[employer] Inc [id number] Attune Cruciate Retain Cementless Knee Left 8 Component Femoral - Sn/A - [id number] Implanted:Qty: 1 on 10/03/2020 by Koffi Liao MD at [facility] Other - see comments Left: Knee Depuy Orth[employer]ed[employer] Inc [id number] 03/07/2030 [id number] / N/A / [id number] Depuy Orthopaed[employer] Inc [id number] Attune Cementless Rotate Platform Knee 10 Baseplate Tibial - Sn/A - [id number] Implanted:Qty: 1 on 10/03/2020 by Koffi Liao MD at [facility] Other - see comments Left: Knee Depuy Orth[employer]ed[employer] Inc [id number] 09/07/2029 [id number] / N/A / [id number] Depuy Orth[employer]ed[employer] Inc [id number] Attune 8mm Cruciate Retaining Rotate Platform Knee 8 Insert - Sn/A - [id number] Implanted:Qty: 1 on 10/03/2020 by Koffi Liao MD at [facility] Other - see comments Left: Knee Depuy Orth[employer]ed[employer] Inc [id number] 08/07/2025 [id number] / N/A / [id number] Procedures Procedure Name Priority Date/Time Associated Diagnosis [...] Sweet M.D. EMELY:emely 02:50 PM 02:50 PM [facility] [EOD] Narrative 12/18/2015 2:54 PM CDT EXAMINATION: Pre and post IV contrast CT the abdomen and pelvis. HISTORY: Chronic blood clots. [place] filter placed 06/2005. Increased leg pain. Kidney [...] abdomen and pelvis. HISTORY: Chronic blood clots. [place] filter placed 06/2005.Increased leg pain. Kidney stones [...] Sweet M.D. EMELY:emely 02:50 PM 02:50 PM [facility] [EOD] Himanshu Brito MD IMG CT PROCEDURES Final Re sult from Last 3 Months or Most Recently Relevant to Health Maintenance Insurance * Guarantor: Seb Lawton Account Type Relation to Patient Date of Phone Billing Address Personal/Family Self 1950 [facility] [place] [address] HUMANA CHOICE MEDICARE PPO HUMANA CHOICE MEDICARE PPO HUMANA CHOICE MEDICARE PPO Advance Directives For more information, please contact: [phone] Documents on File Type Date Recorded Patient Sample Sewer Expl anation ADVANCE DIRECTIVE 10/03/2020 9:53 AM ADVANCE DIRECTIVE 01/09/2018 11:21 AM ADVANCE DIRECTIVE 01/09/2018 Advance Di rective Checklist ADVANCE DIRECTIVE 02/02/2016 12:00 AM ABEL R OF WOOL BATTING WORKER FINANCIAL/MEDICAL * Full Code (Latest Code Status on File) Date Activated Date Inactivated Comments 10/03/2020 3:58 PM 10/04/2020 1:55 PM Care Teams Forestry Extension Specialist Relationship Specialty Start Date End Date Denny Polo DO PCP - General Internal Medicine 04/06/19
--- OUTSIDE RECORDS SUMMARY | 2025-02-24 14:54 | XMS_ITS | Clinical Summary ---
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 Gender Identity Not on file Sexual Orientation Not on file Plan of Treatment Health Maintenance Due Date Last Done Comments Colorectal Cancer Screening Colonoscopy (10 Years) 1950 Hepatitis C 11/06/1969 DTaP, Tdap and Td Vaccines ( 1 - Tdap) 11/06/1970 Pneumococcal Vaccine: 50+ Ye ars (1 of 1 - PCV) 11/06/2001 Zoster Vaccines (1 of 2) 11/06/2001 Annual Medicare Wellness Visit 11/06/2016 COVID-19 Vaccine ( - 2023-2 5 season) 2024 RSV Immunization or 60+ Years (1 - 1-dose 75+ series) 11/06/2026 Meningococcal B Vaccine Aged Out No l onger eligible based on patient's age to complete this topic Meningococcal Vaccine Aged Out No luda luz maria eligible based on patient's age to complete this topic RSV Immunizations Under 20 Months Aged Out No longer eligible based on patient's age to complete this topic Insurance HUMANA Care Teams Celery Stripper Relationship Specialty Start Date End Date Denny Polo DO [address] [address] PCP - General INTERNAL MEDICINE 09/27/22
--- OUTSIDE RECORDS SUMMARY | 2025-02-24 14:54 | XMS_ITS | Clinical Summary ---
Author Organization [facility] Address [address] [place] [address] Care Team Providers Care Aquatics Specialist Name Role Phone Malaika Wolf MD Unavailable Jeffry Novak MD Primary Care Provider [phone] Source Comments [facility],non-owned Affiliates and Associated Physician Practices is amultiple site organization consisting of ambulatory clinics and hospital sitesin [place], [place], [place] and [place]. This disclosure is being madepursuant to the Care Everywhere program and may not contain all information available regarding this patient. Last updated 18.[facility] Allergies No known active allergies Medications * [...] Tikosyn as managed by Dr. Mendoza at [facility]. Continue Eliquis for 30 days after cardioversion. Follow-up as scheduled with Dr. Mendoza's team in May and with Dr. Clarke in August or sooner PRN. Resolved Problems Problem Noted Date Diagnosed Date Resolved Date DVT (deep venous thrombosis) 06/05/2014 Fluttering heart 06/05/2014 Encounters Date Type Department Care Team Description 02/17/2025 Orders Only [facility] - Cardiology [address] [place] [address], [address] [address] Daniel Mccracken RN Persistent atrial fibrillation (HCC) ; Atypical atrial flutter (HCC) 02/10/2025 10:00 AM CDT Office Visit [facility] - Cardiology [address] [place] [address], [address] [address] Manuelito Clarke MD Atypical atrial flutter (HCC) (Primary Dx); HTN (hypertension), benign 02/10/2025 Travel 02/01/2025 Refill [facility] - Cardiology [address] [place] [address], [address] [address] Manuelito Clarke MD Refill Request 01/07/2025 1:52 PM CDT - 01/07/2025 11:59 PM CDT Hospital Encounter [facility] [address] [place] [address] Malaika Wolf MD Discharge Disposition: Home or Self Care 01/07/2025 Travel 01/06/2025 Telephone [facility] [address] [place] [address] Fina Pike 01/06/2025 Orders Only [facility] - Hematology/Oncology [address] [place] [address] Malaika Wolf MD Chronic deep vein thrombosis [...] PM CDT 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 Gender Identity Male 03/04/2022 6:00 PM [...] this topic Medical Devices Implanted Type Area On Site Manager Device Identifier Shelf Expiration Date Model / Serial / Lot Mesh Srg Ultrapro 4.7x2.4in Lg [place] Implanted:Qty: 1 on 08/03/2018 by Lionel Bee MD at [facility] Right: [employer]e [employer] 02/06/2020 [facility] / / [id number] Description:DOCUMENTED BY Julianne Harrison Procedures Procedure Name [...] * EKG 12-Lead (02/10/2025 10:21 AM CDT) [facility] Ventricular Rate 59 BPM [facility] Atrial Rate 59 BPM [facility] P-R Interval 168 ms [facility] QRS Duration ms 90 ms [facility] Q-T Interval ms 446 ms [facility] QTC Calculation (Bezet) 441 ms [facility] Calculated P [place] 92 degrees [facility] Calculated R [place] 5 degrees [facility] Calculated T [place] 36 degrees [facility] M[facility] Interpretation EKG SINUS BRADYCARDIA WITH PREMATURE ATRIAL COMPLEXES OTHERWISE NORMAL ECG WHEN COMPARED WITH ECG OF 19-AUG-2024 09:58, PREMATURE ATRIAL COMPLEXES ARE NOW PRESENT Confirmed by MANUELITO CLARKE MD ([id number]) on 02/12/2025 10:31:47 AM [facility] 02/10/2025 10:2 1 AM CDT 02/12/2025 10:31 AM CDT us Manuelito Clarke MD ECG ORDERABLES Edited Result - Final [facility] * (ABNORMAL) CBC WITH DIFFERENTIAL (01/07/2025 2:09 PM CDT) [facility] WBC 3.3(L) 4.0 - 10.7 x10E9/L 01/07/2025 2:27 PM CDT [facility] RBC Count 4.59 4.30 - 5.80 x10E12/L 01/07/2025 2:27 PM CDT [facility] Hemoglobin 15.2 13.3 - 17.5 g/dL 01/07/2025 2:27 PM CDT [facility] Hematocrit 43.8 38.7 - 51.1 % 01/07/2025 2:27 PM [facility] MCV 95.4 80.0 - 98.0 fL 01/07/2025 2:27 PM [facility] MCH 33.1 26.7 - 33.6 pg 01/07/2025 2:27 PM [facility] MCHC 34.7 31.7 - 36.3 g/dL 01/07/2025 2:27 PM [facility] RDW-CV 13.1 11.3 - 14.8 % 01/07/2025 2:27 PM [facility] Platelet Count 173 150 - 420 x10E9/L 01/07/2025 2:27 PM [facility] MPV 10.0 7.8 - 11.4 fL 01/07/2025 2:27 PM [facility] Preliminary Absolute Neutrophil 2.16 1.60 - 7.50 x10E9/L 01/07/2025 2:27 PM [facility] Neutrophil % 66.3 41.0 - 74.0 % 01/07/2025 2:27 PM [facility] Lymphocyte % 19.3 17.0 - 47.0 % 01/07/2025 2:27 PM [facility] Monocyte % 10.1 3.0 - 11.0 % 01/07/2025 2:27 PM [facility] Eosinophil % 2.5 0.0 - 7.0 % 01/07/2025 2:27 PM [facility] Basophil % 1.2 0.0 - 1.6 % 01/07/2025 2:27 PM [facility] Immature Granulocytes % 0.6 0.0 - 1.0 % 01/07/2025 2:27 PM [facility] Neutrophil Absolute 2.16 1.60 - 7.50 x10E9/L 01/07/2025 2:27 PM [facility] Lymphocyte Absolute 0.63(L) 1.00 - 4.40 x10E9/L 01/07/2025 2:27 PM [facility] Monocyte Absolute 0.33 0.15 - 1.00 x10E9/L 01/07/2025 2:27 PM [facility] Eosinophil Absolute 0.08 0.00 - 0.60 x10E9/L 01/07/2025 2:27 PM [facility] Basophil Absolute 0.04 0.00 - 0.13 x10E9/L 01/07/2025 2:27 PM [facility] Blood BLOOD SPECIMEN / Unknown Venipuncture / Unknown 01/07/2025 2:09 PM CDT 01/07/2025 2:17 PM CDT us Malaika Wolf MD LAB - HEMATOLOGY ORDERABLES Lucina babcock Result [facility] [address] [place] [address], [facility] [phone] * (ABNORMAL) COMPREHENSIVE METABOLIC PANEL (01/07/2025 2:09 PM CDT) BUN 15 7 - 26 mg/dL 01/07/2025 2:48 PM [facility] Creatinine 0.84 0.71 - 1.16 mg/dL 01/07/2025 2:48 PM [facility] Sodium 142 136 - 145 mmol/L 01/07/2025 2:48 PM [facility] Potassium 4.2 3.5 - 4.5 mmol/L 01/07/2025 2:48 PM [facility] Chloride 107 98 - 107 mmol/L 01/07/2025 2:48 PM [facility] CO2 27 22 - 29 mmol/L 01/07/2025 2:48 PM [facility] Glucose 109(H) 70 - 99 mg/dL 01/07/2025 2:48 PM [facility] Calcium 9.6 8.4 - 10.2 mg/dL 01/07/2025 2:48 PM [facility] Protein Total 6.8 6.0 - 8.3 g/dL 01/07/2025 2:48 PM [facility] Albumin 4.1 3.4 - 5.0 g/dL 01/07/2025 2:48 PM [facility] Bilirubin Total 1.0 0.2 - 1.2 mg/dL 01/07/2025 2:48 PM [facility] Alkaline Phosphatase 74 40 - 150 U/L 01/07/2025 2:48 PM [facility] ALT 22 5 - 55 U/L 01/07/2025 2:48 PM [facility] AST 21 5 - 34 U/L 01/07/2025 2:48 PM [facility] Anion Gap 8 6 - 16 01/07/2025 2:48 PM [facility] BUN/Creatinine Ratio 18 7 - 23 01/07/2025 2:48 PM [facility] Osmolality Calculated 295 275 - 295 mOsm/kg 01/07/2025 2:48 PM [facility] Albumin/Globulin Ratio 1.5 1.1 - 2.3 01/07/2025 2:48 PM [facility] eGFR by CKD-EPI >90 >=90 mL/min/1.7 3 m2 01/07/2025 2:48 PM [facility] Blood BLOOD SPECIMEN / Unknown Venipuncture / Unknown 01/07/2025 2:09 PM CDT 01/07/2025 2:17 PM T Malaika Wolf MD LAB - CHEMISTRY ORDERABLES Final Result Performing Organization Address [facility]/State/ZIP Co de Phone Number [facility] [address] [place] [address], [facility] [phone] from Last 3 Months Insurance HUMANA MEDICARE ADV HMO & PPO Advance Directives Documents on File Type Date Recorded 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
--- OUTSIDE RECORDS SUMMARY | 2025-02-24 14:54 | XMS_ITS | Encounter Summary ---
Author Organization [facility] Address [address] [place] [address] Care Team Providers Care Candy Catcher Name Role Phone Amando Rooney DO Primary Care Provider [phone] Sarath Edward MD Primary Care Provider [phone] Denny Polo DO Primary Care Provider [phone] Malaika Wolf MD Unavailable Jeffry Novak MD Primary Care Provider [phone] Encounter Details Date Type Department Care Team (Late st Contact Info) Description 05/20/2013 [facility] Outpatient Visit [id number] Pcp, [place] [address] Social History Tobacco Use Types Packs/Day Years Used Date Smoking Tobacco: Never Smokeless Tobacco: Never Alcohol Use Standard Drinks/Week Comments Yes 5 (1 standard drink = 0.6 oz pur e alcohol) Sex and Gender Information Value Date Recorded Sex Assigned at Male 03/04/2022 6:00 PM CDT 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 Gender Identity Male 03/04/2022 6:00 PM CDT Sexual Orientation Not on file documented as of this encounter Plan of Treatment Not on file documented as of this encounter Visit Diagnoses Not on filedocumented in this encounter Care Teams Candy Catcher Relationship Specialty Start Date End Date Amando Rooney DO [address] [place] [address] PCP - General Family Medicine 01/27/13 02/04/18 Sarath Edward MD [address] [place] [address] PCP - General 02/05/18 08/23/20 Denny Polo DO [address] [place] [address] PCP - General Internal Medicine 08/24/20 09/28/23 Jeffry Novak MD [address] [place] [address] PCP - General Family Medicine 09/29/23 Malaika Wolf MD [address] [place] [address] Physician Hematology and Oncology 09/10/23 documented as of this encounter
--- OUTSIDE RECORDS SUMMARY | 2025-02-24 14:54 | XMS_ITS | Referral Summary ---
Author Organization [facility] Address [address] [place] [address] Care Team Providers Care Small Arms Repairer Name Role Phone Denny Polo DO Primary Care Provider [phone] Allergies No known active allergies Medications calcium [...] (01/22/2021): Added automatically from request for surgery [id number] Longstanding persistent atrial fibrillation 11/07 Vitamin D [...] Tikosyn as managed by Dr. Mendoza at [facility]. 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 Gender Identity Not on file Sexual Orientation Not on file Last Filed Vital Signs Vital Sign Reading Time Taken Comments Blood Pressure 164/81 07/29/2022 2:46 PM LUMBER YARD WORKER Pulse 83 07/29/2022 2:46 PM LUMBER YARD WORKER Temperature 36.3 C (97.4 F) 07/29/2022 2:46 PM LUMBER YARD WORKER Respiratory Rate 18 10/04/2020 7:45 AM LUMBER YARD WORKER Oxygen Saturation 96% 10/04/2020 7:45 AM LUMBER YARD WORKER Inhaled Oxygen Concentration - - Weight 99.8 kg (220 lb) 07/29/2022 2:46 PM LUMBER YARD WORKER Height 190.5 cm (6' 3) 07/29/2022 2:46 PM LUMBER YARD WORKER Body Mass Index 27.5 07/29/2022 2:46 PM LUMBER YARD WORKER Plan of Treatment Not on file Medical Devices Implanted Type Area Supervisor Drawing Device Identifier Shelf Expiration Date Model / Serial / Lot Ivc Filter- 5 Implanted:Qty: 1 on 09/20/2004 IVC Filter Right: Groin DepFidus Writer [employer] [id number] Attune Cruciate Retain Cementless Knee Left 8 Component Femoral - Sn/A - [id number] Implanted:Qty: 1 on 10/03/2020 by Koffi Liao MD at [facility] Other - see comments Left: Knee [employer] [id number] 03/07/2030 [id number] / N/A / [id number] [employer] [id number] Attune Cementless Rotate Platform Knee 10 Baseplate Tibial - Sn/A - [id number] Implanted:Qty: 1 on 10/03/2020 by Koffi Liao MD at [facility] Other - see comments Left: Knee [employer] Inc [id number] 09/07/2029 [id number] / N/A / [id number] [employer] [id number] Attune 8mm Cruciate Retaining Rotate Platform Knee 8 Insert - Sn/A - [id number] Implanted:Qty: 1 on 10/03/2020 by Koffi Liao MD at [facility] Other - see comments Left: Knee [employer] [id number] 08/07/2025 [id number] / N/A / [id number] Procedures Procedure Name Priority Date/Time Associated Diagnosis [...] Fan M.D. EMELY:emely 02:50 PM 02:50 PM [facility] [EOD] Narrative 12/18/2015 2:54 PM CDT EXAMINATION: Pre and post IV contrast CT the abdomen and pelvis. HISTORY: Chronic blood clots. [place] filter placed 06/2005. Increased leg pain. Kidney [...] Fan M.D. EMELY:emely 02:50 PM 02:50 PM [facility] [EOD] Himanshu Brito MD IM CT PROCEDURES Final Re sult from Last 3 Months or Most Recently Relevant to Health Maintenance Insurance HUMANA CHOICE MEDICARE PPO HUMANA CHOICE MEDICARE PPO HUMANA CHOICE MEDICARE PPO Advance Directives For more information, please contact: [phone] Documents on File Type Date Recorded Patient Clinical Research Administrator Expl anation ADVANCE DIRECTIVE 10/03/2020 9:53 AM ADVANCE DIRECTIVE 01/09/2018 11:21 AM ADVANCE DIRECTIVE 01/09/2018 Advance Di rective Checklist ADVANCE DIRECTIVE 02/02/2016 12:00 AM ABEL R OF BOARD OF DIRECTORS FINANCIAL/MEDICAL * Full Code (Latest Code Status on File) Date Activated Date Inactivated Comments 10/03/2020 3:58 PM 10/04/2020 1:55 PM Care Teams Small Arms Repairer Relationship Specialty Start Date End Date Denny Polo DO PCP - General Internal Medicine 04/06/19
--- OUTSIDE RECORDS SUMMARY | 2025-02-24 14:54 | XMS_ITS | Continuity of Care Document ---
Author Organization [facility] Address [address] [place] [address] Phone Care Team Providers Care Metal Fitters And Machinists Name Role Phone Jairo Webb MD Unavailable Unavailable Allergies, Adverse Reactions, Alerts Substance Reaction Status Criticality No Known Allergies Active No Inform ation Medications Medication Instructions Dosage Effective Dates (start - stop) Status Comments No Drug Therapy Prescribed Procedures Procedure Date [facility] 1 VIEW OFFICE/OUTPATIENT VISIT EST OFFICE CONSULTATION RADEX ISIDRO COMPL MINIMUM 2 VIEWS 016 Advance Directives Directive Yes / No Effective Date File Name No Information Encounters Encounter Description Practice Location Reason(s) For Visit Diagnoses Date Provider Providers Copied on Encounter [facility], [address], [place], [address], [place] tel:[phone] [facility] [place] [facility] No Information 6 Tracey Gill. [address] [facility] [place], [place], [id number] . tel: [phone] OFFICE/OUTPAT IENT VISIT EST [facility], [address], [place], [address], [place] tel:[phone] [facility] Pain in right shoulderIncompl ete tear of right rotator cuffClosed fracture of right scapula with routine healing, unspecified part of scapula, subsequent encounter 6 Dusek Jairo. [address] [facility] [place], [id number] . tel: [phone] OFFICE CONSULTATION [facility], [address], [place], [address], [place] tel:[phone] [facility] Right shoulder pain (chief complaint) Closed fracture of right scapula, unspecified part of scapula, initial encounterIncomp lete tear of right rotator cuff [address] Zachariah Thompson. [address], [place], [place], [id number] . tel: [phone] Referring Provider: Sarath Levin, [address], [place], [address]. tel:[phone] Family History Family Member Type Diagnosis Age At Onset Father Problem (finding) osteoarthritis Father Problem (finding) atrial fibrillation Payers Payer name Insurance type Covered democrat ID Nicole kelly(s) Blue Access PPO E2 OT [id number] Social History Type Description Quantity Date Captured [...]
--- OUTSIDE RECORDS SUMMARY | 2025-02-24 14:54 | XMS_ITS | Encounter Summary ---
Author Organization [facility] Address [address] [place] [address] Care Team Providers Care Surgical Tech Name Role Phone Amando Rooney DO Primary Care Provider [phone] Sarath Edward MD Primary Care Provider [phone] Denny Polo DO Primary Care Provider [phone] Malaika Wolf MD Unavailable Jeffry Novak MD Primary Care Provider [phone] Encounter Details Date Type Department Care Team (Late st Contact Info) Description 01/09/2012 [facility] Outpatient Visit [id number] Amando Rooney DO [address] [place] [address] Social History Tobacco Use Types Packs/Day Years Used Date Smoking Tobacco: Never Assessed Sex and Gender Information Value Date Recorded Sex Assigned at Male 03/04/2022 6:00 PM CDT 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 Gender Identity Male 03/04/2022 6:00 PM CDT Sexual Orientation Not on file documented as of this encounter Plan of Treatment Not on file documented as of this encounter Visit Diagnoses Not on filedocumented in this encounter Care Teams Surgical Tech Relationship Specialty Start Date End Date Amando Rooney DO [address] [place] [address] PCP - General Family Medicine 01/27/13 02/04/18 Sarath Edward MD [address] [place] [address] PCP - General 02/05/18 08/23/20 Denny Polo DO [address] [place] [address] PCP - General Internal Medicine 08/24/20 09/28/23 Jeffry Novak MD [address] [place] [address] PCP - General Family Medicine 09/29/23 Malaika Wolf MD [address] [place] [address] Physician Hematology and Oncology 09/10/23 documented as of this encounter
--- OUTSIDE RECORDS SUMMARY | 2025-02-24 14:54 | XMS_ITS | Encounter Summary ---
Author Organization [facility] Health Address [address] [facility] [place] [address] Care Team Providers Care County Supervisor Name Role Phone Amando Rooney DO Primary Care Provider [phone] Sarath Edward MD Primary Care Provider [phone] Denny Polo DO Primary Care Provider [phone] Malaika Wolf MD Unavailable Jeffry Novak MD Primary Care Provider [phone] Encounter Details Date Type Department Care Team (Late st Contact Info) Description 06/03/2013 [facility] Outpatient Visit [id number] Unknown, Provider Social History Tobacco Use Types Packs/Day Years Used Date Smoking Tobacco: Never Smokeless Tobacco: Never Alcohol Use Standard Drinks/Week Comments Yes 5 (1 standard drink = 0.6 oz pur e alcohol) Sex and Gender Information Value Date Recorded Sex Assigned at Male 03/04/2022 6:00 PM CDT 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 Gender Identity Male 03/04/2022 6:00 PM CDT Sexual Orientation Not on file documented as of this encounter Plan of Treatment Not on file documented as of this encounter Visit Diagnoses Not on filedocumented in this encounter Care Teams County Supervisor Relationship Specialty Start Date End Date Amando Rooney DO [address] [place] [address] PCP - General Family Medicine 01/27/13 02/04/18 Sarath Edward MD [address] [place] [address] PCP - General 02/05/18 08/23/20 Denny Polo DO [address] [place] [address] PCP - General Internal Medicine 08/24/20 09/28/23 Jeffry Novak MD [address] [place] [phone] PCP - General Family Medicine 09/29/23 Malaika Wolf MD [address] [place] [phone] Physician Hematology and Oncology 09/10/23 documented as of this encounter
[2025-02-24 15:18] VITALS: BP 147/76; PULSE 56; RESP 18; TEMP 36.5; O2SAT 98
[2025-02-24 15:21] LABS: Basophils Absolute Auto 0.1 K/mm3 (0.0-0.1); Basophils Percent Auto 1.1 % (0.2-1.2); Eosinophils Absolute Auto 0.1 K/mm3 (0-0.3); Eosinophils Percent Auto 2.3 % (0-4.4); Hematocrit 41.9 % (42.0-52.0); Hemoglobin 14.3 g/dL (14.0-18.0); Immature Granulocyte Absolute 0.02 K/mm3 (0.00-0.031); Immature Granulocyte Percent A 0.4 % (0-0.5); Lymphocytes Absolute Auto 0.78 K/mm3 (0.9-3.2); Lymphocytes Percent Auto 14.8 % (18.3-44.2); Mean Corpuscular HGB Conc 34.1 g/dl (32-36); Mean Corpuscular Hemoglobin 32.7 pg (26-34); Mean Corpuscular Volume 95.9 fl (80-100); Mean Platelet Volume 9.6 fl (7.4-10.4); Monocytes Absolute Auto 0.5 K/mm3 (0.1-0.6); Monocytes Percent Auto 9.3 % (2.6-8.5); Neutrophils Absolute Auto 3.8 K/mm3 (1.3-6.7); Neutrophils Percent Auto 72.1 % (45.5-73.1); Platelet Count Result 185 k/mm3 (150-375); Red Blood Count 4.37 M/mm3 (4.6-6.20); Red Cell Distribution Width 12.9 % (11.5-14.5); White Blood Count 5.3 K/mm3 (4.5-10.0)
[2025-02-24 15:37] LABS: Anion Gap 6 mmol/L (4-12); Blood Urea Nitrogen 15 mg/dL (9-20); Carbon Dioxide 29 mmol/L (22-30); Chloride 105 mmol/L (98-107); Estimated CRCL calculation 85 ml/min; Estimated Glomerular Filt Rate > 60; Glucose 102 mg/dL (65-110); Potassium 4.2 mmol/L (3.4-5.0); Sodium 140 mmol/L (137-145)
[2025-02-24 15:46] LABS: NT Pro B Type Natriuretic Pept 185 pg/mL (19.9-100)
== END 2025-02-24 16:33 | disposition home or self-care (01) ==
PROVIDERS: Emergency Provider Registered Nurse Emergency; PCP Family Medicine
DX: R22.42 Localized swelling, mass and lump, left lower limb (principal); R06.02 Shortness of breath; I48.91 Unspecified atrial fibrillation; Z96.659 Presence of unspecified artificial knee joint; Z86.718 Personal history of other venous thrombosis and embolism; Z79.01 Long term (current) use of anticoagulants
CPT/HCPCS: 36415; 71046; 80048; 83880; 85025; 99283

== ENCOUNTER 2025-03-18 11:13 | Outpatient (CLI) | payer MEDICARE, SELFPAY ==
--- NOTE | ~2025-03-18 | XR_ITS ---
Right wrist Technique: PA, oblique, lateral, and ulnar deviation views were obtained. Clinical History: Pain Findings: No acute fracture or dislocation is seen. Osseous alignment is anatomic. There is mild dege nerative change of the first CMC joint. Soft tissues are unremarkable. 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 Reviewed, dictated and finalized at location . 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
== END 2025-03-18 11:14 | disposition home or self-care (01) ==
LOC: GOSHIMG 11:14
PROVIDERS: PCP Nurse Practitioner Family; Visit Provider Nurse Practitioner Family
DX: M19.031 Primary osteoarthritis, right wrist (principal)
CPT/HCPCS: 73110

== ENCOUNTER 2025-04-08 13:19 | Outpatient (CLI) | payer MEDICARE, SELFPAY ==
--- NOTE | ~2025-04-08 | US_ITS ---
US soft tissue LE LT 04/08/2025 14:31 Indication: Palpable lump left upper posterior calf for one month. No known injury. Patient on blood thinners. Procedure: High frequency linear transducer used to evaluate the area of clinical concern in the left posterior calf with grayscale and color Doppler imaging. Comparison: No prior studies for comparison. Findings: In the subfascial/posterior compartment of the left upper calf, there is a large complex fl uid collection with internal heterogeneous echogenic material and thick septations, consistent with a complicated or organized fluid collection. Lesion measures 13.4 x 6.7 x 3.1 cm with no significant i nternal vascularity although there is peripheral marginal vascularity. Surrounding muscle and subcuta neous tissues intact without evidence for significant mass. Impression: 1: Large complex fluid collection left upper posterior calf measuring up to 13.4 cm. Findings suspici ous for chronic organized hematoma given the patient's anticoagulation status and absence of trauma h istory. Differential diagnosis includes chronic organized intramuscular hematoma, chronic abscess and less likely considerations such as soft tissue sarcoma with necrosis and vascular malformation with thrombosis. Consider correlation with MRI with contrast of the left calf. Reviewed, dictated and finalized at location A. Impression: 1: Large complex fluid collection left upper posterior calf measuring up to 13. 4 cm. Findings suspicious for chronic organized hematoma given the patient's an ticoagulation status and absence of trauma history. Differential diagnosis incl udes chronic organized intramuscular hematoma, chronic abscess and less likely considerations such as soft tissue sarcoma with necrosis and vascular malformat ion with thrombosis. Consider correlation with MRI with contrast of the left ca lf.
--- NOTE | ~2025-04-08 | US_ITS ---
EXAMINATION:US venous doppler LE LT INDICATION:Chronic DVT. Patient on his relatives since last fall. Patient has an IVC filter. TECHNIQUE: Multiple grayscale, color flow and Doppler images of the left lower extremity deep venous systems were obtained and reviewed. COMPARISON:Ultrasound dated 06/21/2024 and 02/18/2025 FINDINGS: There is deep venous thrombosis of the left femoral and popliteal veins, possibly chronic a nd partially occlusive. Sarah's cyst left popliteal fossa. The remainder of the left lower extremity veins are patent. IMPRESSION: 1: Partially occlusive deep venous thrombosis of the left femoral and popliteal veins, possibly chron ic. Similar findings on 06/21/2024 examination. Reviewed, dictated and finalized at location A. IMPRESSION: 1: Partially occlusive deep venous thrombosis of the left femoral and popliteal veins, possibly chronic. Similar findings on 06/21/2024 examination.
--- OUTSIDE RECORDS SUMMARY | 2025-04-08 13:23 | XMS_ITS | Encounter Summary ---
Author Organization [facility] Address [address] [facility] [place] [address] Care Team Providers Care Dental Technician Name Role Phone Denny Polo Primary Care Provider [phone] Malaika Wolf MD Unavailable Jeffry Novak MD Primary Care Provider [phone] Reason for Visit * Reason Onset Date Comments MEDICATION REFILL 06/12/2023 Encounter Details Date Type Department Care Team (Late st Contact Info) Description 06/12/2023 Refill [facility] - Hematology/Oncology [address] [place] [phone] Sakshi Sam MD [address] [facility] [place] [phone] MEDICATION REFILL Social History Tobacco Use Types Packs/Day Years Used Date Smoking Tobacco: Never Smokeless Tobacco: Never Alcohol Use Standard Drinks/Week Comments Yes 5 (1 standard drink = 0.6 oz pur e alcohol) occ PHQ-2 Answer Date Recorded PHQ2 TOTAL SCORE 0 07/25/2022 Sex and Gender Information Value Date Recorded Sex Assigned at Male 03/04/2022 6:00 PM CDT 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 Gender Identity Male 03/04/2022 6:00 PM CDT Sexual Orientation Not on file documented as of this encounter Plan of Treatment Not on file documented as of this encounter Visit Diagnoses Not on filedocumented in this encounter Care Teams Dental Technician Relationship Specialty Start Date End Date Denny Polo DO [address] [place] [address] PCP - General Internal Medicine 08/24/20 09/28/23 Jeffry Novak MD [address] [place] [phone] PCP - General Family Medicine 09/29/23 Malaika Wolf MD [address] [place] [address] Physician Hematology and Oncology 09/10/23 documented as of this encounter
--- OUTSIDE RECORDS SUMMARY | 2025-04-08 13:23 | XMS_ITS | Encounter Summary ---
Author Organization [facility] Address [address] [facility] [place] [address] Care Team Providers Care Liner Replacer Name Role Phone Amando Rooney DO Primary Care Provider [phone] Sarath Edward MD Primary Care Provider [phone] Denny Polo DO Primary Care Provider [phone] Malaika Wolf MD Unavailable Jeffry Novak MD Primary Care Provider [phone] Encounter Details Date Type Department Care Team (Late st Contact Info) Description 07/22/2012 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 Gender Identity Male 03/04/2022 6:00 PM CDT Sexual Orientation Not on file documented as of this encounter Plan of Treatment Not on file documented as of this encounter Visit Diagnoses Not on filedocumented in this encounter Care Teams Liner Replacer Relationship Specialty Start Date End Date Amando Rooney DO [address] [place] [phone] PCP - General Family Medicine 01/27/13 02/04/18 Sarath Edward MD [address] [place] [address] PCP - General 02/05/18 08/23/20 Denny Polo DO [address] [address] PCP - General Internal Medicine 08/24/20 09/28/23 Jeffry Novak MD [address] [place] [phone] PCP - General Family Medicine 09/29/23 Malaika Wolf MD [address] [place] [address] Physician Hematology and Oncology 09/10/23 documented as of this encounter
--- OUTSIDE RECORDS SUMMARY | 2025-04-08 13:23 | XMS_ITS | Encounter Summary ---
Author Organization [facility] Health Address [address] [facility] [place] [address] Care Team Providers Care Drop Tester Name Role Phone Amando Rooney DO Primary Care Provider [phone] Sarath Edward MD Primary Care Provider [phone] Denny Polo DO Primary Care Provider [phone] Malaika Wolf MD Unavailable Jeffry Novak MD Primary Care Provider [phone] Encounter Details Date Type Department Care Team (Late st Contact Info) Description 01/09/2012 [facility] Outpatient Visit [id number] Amando Rooney DO [address] [place] [address] Social History Tobacco Use Types Packs/Day Years Used Date Smoking Tobacco: Never Assessed Sex and Gender Information Value Date Recorded Sex Assigned at Male 03/04/2022 6:00 PM CDT 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 Gender Identity Male 03/04/2022 6:00 PM CDT Sexual Orientation Not on file documented as of this encounter Plan of Treatment Not on file documented as of this encounter Visit Diagnoses Not on filedocumented in this encounter Care Teams Drop Tester Relationship Specialty Start Date End Date Amando Rooney DO [address] [place] [address] PCP - General Family Medicine 01/27/13 02/04/18 Sarath Edward MD [address] [place] [address] PCP - General 02/05/18 08/23/20 Denny Polo DO [address] [place] [address] PCP - General Internal Medicine 08/24/20 09/28/23 Jeffry Novak MD [address] [place] [phone] PCP - General Family Medicine 09/29/23 Malaika Wolf MD [address] [place] [address] Physician Hematology and Oncology 09/10/23 documented as of this encounter
--- OUTSIDE RECORDS SUMMARY | 2025-04-08 13:23 | XMS_ITS | Encounter Summary ---
Author Organization [facility] Health Address [address] [place] [place] [address] Care Team Providers Care Porcelain Enamel Laborer Name Role Phone Amando Rooney DO Primary Care Provider [phone] Sarath Edward MD Primary Care Provider [phone] Dneny Polo DO Primary Care Provider [phone] Malaika Wolf MD Unavailable Jeffry Novak MD Primary Care Provider [phone] Encounter Details Date Type Department Care Team (Late st Contact Info) Description 05/20/2013 [facility] Outpatient Visit [id number] Pcp, [place] [address] Social History Tobacco Use Types Packs/Day Years Used Date Smoking Tobacco: Never Smokeless Tobacco: Never Alcohol Use Standard Drinks/Week Comments Yes 5 (1 standard drink = 0.6 oz pur e alcohol) Sex and Gender Information Value Date Recorded Sex Assigned at Male 03/04/2022 6:00 PM CDT Legal Sex 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 LAB 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 Gender Identity Male 03/04/2022 6:00 PM CDT Sexual Orientation Not on file documented as of this encounter Plan of Treatment Not on file documented as of this encounter Visit Diagnoses Not on filedocumented in this encounter Care Teams Porcelain Enamel Laborer Relationship Specialty Start Date End Date Amando Rooney DO [address] [place] [address] PCP - General Family Medicine 01/27/13 02/04/18 Sarath Edward MD [address] [place] [address] PCP - General 02/05/18 08/23/20 Denny Polo DO [address] [place] [address] PCP - General Internal Medicine 08/24/20 09/28/23 Jeffry Novak MD [address] [place] [phone] PCP - General Family Medicine 09/29/23 Malaika Wolf MD [address] [place] [address] Physician Hematology and Oncology 09/10/23 documented as of this encounter
--- OUTSIDE RECORDS SUMMARY | 2025-04-08 13:23 | XMS_ITS | Encounter Summary ---
Author Organization [facility] Health Address [address] [facility] [place] [address] Care Team Providers Care Database Security Administrator Name Role Phone Amando Rooney DO Primary Care Provider [phone] Sarath Edward MD Primary Care Provider [phone] Denny Polo DO Primary Care Provider [phone] Malaika Wolf MD Unavailable Jeffry Novak MD Primary Care Provider [phone] Encounter Details Date Type Department Care Team (Late st Contact Info) Description 06/03/2013 [facility] Outpatient Visit [id number] Unknown, Provider Social History Tobacco Use Types Packs/Day Years Used Date Smoking Tobacco: Never Smokeless Tobacco: Never Alcohol Use Standard Drinks/Week Comments Yes 5 (1 standard drink = 0.6 oz pur e alcohol) Sex and Gender Information Value Date Recorded Sex Assigned at Male 03/04/2022 6:00 PM CDT 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 Gender Identity Male 03/04/2022 6:00 PM CDT Sexual Orientation Not on file documented as of this encounter Plan of Treatment Not on file documented as of this encounter Visit Diagnoses Not on filedocumented in this encounter Care Teams Database Security Administrator Relationship Specialty Start Date End Date Amando Rooney DO [address] [place] [address] PCP - General Family Medicine 01/27/13 02/04/18 Sarath Edward MD [address] [place] [address] PCP - General 02/05/18 08/23/20 Denny Polo DO [address] [place] [address] PCP - General Internal Medicine 08/24/20 09/28/23 Jeffry Novak MD [address] [place] [phone] PCP - General Family Medicine 09/29/23 Malaika Wolf MD [address] [place] [phone] Physician Hematology and Oncology 09/10/23 documented as of this encounter
--- OUTSIDE RECORDS SUMMARY | 2025-04-08 13:23 | XMS_ITS | Continuity of Care Document ---
Author Organization [facility] Address [address] [place] [address] Phone Care Team Providers Care Health Care Analyst Name Role Phone Jairo Webb MD Unavailable Unavailable Allergies, Adverse Reactions, Alerts Substance Reaction Status Criticality No Known Allergies Active No Inform ation Medications Medication Instructions Dosage Effective Dates (start - stop) Status Comments No Drug Therapy Prescribed Procedures Procedure Date RADEX [facility] 1 VIEW OFFICE/OUTPATIENT VISIT EST OFFICE CONSULTATION RADEX ISIDRO COMPL MINIMUM 2 VIEWS 016 Advance Directives Directive Yes / No Effective Date File Name No Information Encounters Encounter Description Practice Location Reason(s) For Visit Diagnoses Date Provider Providers Copied on Encounter [facility], [address], [place], [address], [place] tel:[phone] [facility] No Information 6 Tracey Gill. [address] [facility] [address] [place], [place], [id number] . tel: [phone] OFFICE/OUTPAT IENT VISIT EST [facility], [address], [place], [address], [place] tel:[phone] [facility] Pain in right shoulderIncompl ete tear of right rotator cuffClosed fracture of right scapula with routine healing, unspecified part of scapula, subsequent encounter 6 Dusek Jairo. [address] [facility] [place], [id number] . tel: [phone] OFFICE CONSULTATION [facility], [address], [place], [address], [place] tel:[phone] [facility] Right shoulder pain (chief complaint) Closed fracture of right scapula, unspecified part of scapula, initial encounterIncomp lete tear of right rotator cuff 6 Zachariah Thompson. [address], [place], [place], [id number] . tel: [phone] Referring Provider: Sarath Levin, [address], [place], [address]. tel:[phone] Family History Family Member Type Diagnosis Age At Onset Father Problem (finding) osteoarthritis Father Problem (finding) atrial fibrillation Payers Payer name Insurance type Covered republican ID Nicole kelly(s) Blue Access PPO E2 OT [id number] Social History Type Description Quantity Date Captured [...]
--- OUTSIDE RECORDS SUMMARY | 2025-04-08 13:23 | XMS_ITS | Referral Summary ---
Author Organization [facility] Address [address] [place] [address] Care Team Providers Care Social Worker Aide Name Role Phone Denny Polo DO Primary Care Provider [phone] Allergies No known active allergies Medications calcium [...] (01/22/2021): Added automatically from request for surgery [id number] Longstanding persistent atrial fibrillation 11/07 Vitamin D [...] Tikosyn as managed by Dr. Mendoza at [facility]. Continue Eliquis for 30 [...] on file Legal Sex Male 11:37 AM ORGAN TEACHER Gender Identity Not on file Sexual Orientation Not on file Last Filed Vital Signs Vital Sign Reading Time Taken Comments Blood Pressure 164/81 07/29/2022 2:46 PM ORGAN TEACHER Pulse 83 07/29/2022 2:46 PM ORGAN TEACHER Temperature 36.3 C (97.4 F) 07/29/2022 2:46 PM ORGAN TEACHER Respiratory Rate 18 10/04/2020 7:45 AM ORGAN TEACHER Oxygen Saturation 96% 10/04/2020 7:45 AM ORGAN TEACHER Inhaled Oxygen Concentration - - Weight 99.8 kg (220 lb) 07/29/2022 2:46 PM ORGAN TEACHER Height 190.5 cm (6' 3) 07/29/2022 2:46 PM ORGAN TEACHER Body Mass Index 27.5 07/29/2022 2:46 PM ORGAN TEACHER Plan of Treatment Not on file Medical Devices Implanted Type Area Donor Relations Officer Device Identifier Shelf Expiration Date Model / Serial / Lot Ivc Filter- 5 Implanted:Qty: 1 on 09/20/2004 IVC Filter Right: Groin [employer] [id number] Attune Cruciate Retain Cementless Knee Left 8 Component Femoral - Sn/A - [id number] Implanted:Qty: 1 on 10/03/2020 by Koffi Liao MD at [facility] Other - see comments Left: Knee [employer] [id number] 03/07/2030 [id number] / N/A / [id number] [employer] [id number] Attune Cementless Rotate Platform Knee 10 Baseplate Tibial - Sn/A - [id number] Implanted:Qty: 1 on 10/03/2020 by Koffi Liao MD at [facility] Other - see comments Left: Knee [employer]uy [employer] [id number] 09/07/2029 [id number] / N/A / [id number] [employer] [id number] Attune 8mm Cruciate Retaining Rotate Platform Knee 8 Insert - Sn/A - [id number] Implanted:Qty: 1 on 10/03/2020 by Koffi Liao MD at [facility] Other - see comments Left: Knee [employer] [id number] 08/07/2025 [id number] / N/A / [id number] Procedures Procedure Name Priority Date/Time Associated Diagnosis [...] Fan M.D. EMELY:emely 02:50 PM 02:50 PM [facility] [EOD] Narrative 12/18/2015 2:54 PM CDT EXAMINATION: Pre and post IV contrast CT the abdomen and pelvis. HISTORY: Chronic blood clots. [place] filter placed 06/2005. Increased leg pain. Kidney [...] abdomen and pelvis. HISTORY: Chronic blood clots. [place] filter placed 06/2005.Increased leg pain. Kidney stones [...] Fan M.D. EMELY:emely 02:50 PM 02:50 PM [facility] [EOD] Himanshu Brito MD IM CT PROCEDURES Final Re sult from Last 3 Months or Most Recently Relevant to Health Maintenance Insurance HUMANA CHOICE MEDICARE PPO HUMANA CHOICE MEDICARE PPO HUMANA CHOICE MEDICARE PPO Advance Directives For more information, please contact: [phone] Documents on File Type Date Recorded Patient Roll Forger Expl anation ADVANCE DIRECTIVE 10/03/2020 9:53 AM ADVANCE DIRECTIVE 01/09/2018 11:21 AM ADVANCE DIRECTIVE 01/09/2018 Advance Di rective Checklist ADVANCE DIRECTIVE 02/02/2016 12:00 AM ABEL R OF COUNTER POCKET TRIMMER FINANCIAL/MEDICAL * Full Code (Latest Code Status on File) Date Activated Date Inactivated Comments 10/03/2020 3:58 PM 10/04/2020 1:55 PM Care Teams Social Worker Aide Relationship Specialty Start Date End Date Denny Polo DO PCP - General Internal Medicine 04/06/19
--- OUTSIDE RECORDS SUMMARY | 2025-04-08 13:23 | XMS_ITS | Clinical Summary ---
Author Organization [facility] Address [address] [place] [address] Care Team Providers Care Pattern Clerk Name Role Phone Denny Polo DO Primary Care Provider [phone] Allergies No known active allergies Medications calcium [...] (01/22/2021): Added automatically from request for surgery [id number] Longstanding persistent atrial fibrillation 11/07 Vitamin D [...] on file Legal Sex Male 11:37 AM PENOLOGY TEACHER Gender Identity Not on file Sexual Orientation Not on file Obstetrics History Last Filed Vital Signs Vital Sign Reading Time Taken Comments Blood Pressure 164/81 07/29/2022 2:46 PM PENOLOGY TEACHER Pulse 83 07/29/2022 2:46 PM PENOLOGY TEACHER Temperature 36.3 C (97.4 F) 07/29/2022 2:46 PM PENOLOGY TEACHER Respiratory Rate 18 10/04/2020 7:45 AM PENOLOGY TEACHER Oxygen Saturation 96% 10/04/2020 7:45 AM PENOLOGY TEACHER Inhaled Oxygen Concentration - - Weight 99.8 kg (220 lb) 07/29/2022 2:46 PM PENOLOGY TEACHER Height 190.5 cm (6' 3) 07/29/2022 2:46 PM PENOLOGY TEACHER Body Mass Index 27.5 07/29/2022 2:46 PM PENOLOGY TEACHER Plan of Treatment Health Maintenance Due [...] Risk Assessment 10/04/2021 10/04/2020 Influenza Vaccine (#1) 2025 2, 05/16/2020, 06/10/2019, Additional history exists Medical Devices Implanted Type Area Dispute Resolution Specialist Device Identifier Shelf Expiration Date Model / Serial / Lot Ivc Filter- 5 Implanted:Qty: 1 on 09/20/2004 IVC Filter Right: Groin [employer] [id number] Attune Cruciate Retain Cementless Knee Left 8 Component Femoral - Sn/A - [id number] Implanted:Qty: 1 on 10/03/2020 by Koffi Liao MD at [facility] Other - see comments Left: Knee [employer] [id number] 03/07/2030 [id number] / N/A / [id number] [employer] [id number] Attune Cementless Rotate Platform Knee 10 Baseplate Tibial - Sn/A - [id number] Implanted:Qty: 1 on 10/03/2020 by Koffi Liao MD at [facility] Other - see comments Left: Knee [employer] [id number] 09/07/2029 [id number] / N/A / [id number] [employer] [id number] Attune 8mm Cruciate Retaining Rotate Platform Knee 8 Insert - Sn/A - [id number] Implanted:Qty: 1 on 10/03/2020 by Koffi Liao MD at [facility] Other - see comments Left: Knee [employer] [id number] 08/07/2025 [id number] / N/A / [id number] Procedures Procedure Name Priority Date/Time Associated Diagnosis [...] Sweet M.D. EMELY:emely 02:50 PM 02:50 PM [facility] [EOD] Narrative 12/18/2015 2:54 PM CDT EXAMINATION: Pre and post IV contrast CT the abdomen and pelvis. HISTORY: Chronic blood clots. [place] filter placed 06/2005. Increased leg pain. Kidney [...] Sweet M.D. EMELY:emely 02:50 PM 02:50 PM [facility] [EOD] Himanshu Brito MD IMG CT PROCEDURES Final Re sult from Last 3 Months or Most Recently Relevant to Health Maintenance Insurance HUMANA CHOICE MEDICARE PPO HUMANA CHOICE MEDICARE PPO HUMANA CHOICE MEDICARE PPO Advance Directives For more information, please contact: [phone] Documents on File Type Date Recorded Patient Psych Assistant Expl anation ADVANCE DIRECTIVE 10/03/2020 9:53 AM ADVANCE DIRECTIVE 01/09/2018 11:21 AM ADVANCE DIRECTIVE 01/09/2018 Advance Di rective Checklist ADVANCE DIRECTIVE 02/02/2016 12:00 AM ABEL R OF [employer] FINANCIAL/MEDICAL * Full Code (Latest Code Status on File) Date Activated Date Inactivated Comments 10/03/2020 3:58 PM 10/04/2020 1:55 PM Care Teams Pattern Clerk Relationship Specialty Start Date End Date Dneny Polo DO PCP - General Internal Medicine 04/06/19
--- OUTSIDE RECORDS SUMMARY | 2025-04-08 13:23 | XMS_ITS | Clinical Summary ---
Author Organization [facility] [employer] Address [address] [place] [address] Care Team Providers Care Obstetrician And Gynaecologist Name Role Phone Malaika Wolf MD Unavailable Jeffry Novak MD Primary Care Provider [phone] Source Comments [facility] [employer],non-owned Affiliates and Associated Physician Practices is amultiple site organization consisting of ambulatory clinics and hospital sitesin [place], [place], [place] and [place]. This disclosure is being madepursuant to the Care Everywhere program and may not contain all information available regarding this patient. Last updated 18.[facility] [employer] Allergies No known active allergies Medications * [...] (VIAGRA) 100 MG tablet 01/17/2021 Active Multiple Vitamins-Mineral s (MULTIVITAMIN & MINERAL PO) Active rivaroxaban (Xarelto) 10 MG tabletIndication s: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 (HCC) Take 1 (one) tablet by mouth daily with dinner 30 tablet 2 06/12/2023 Active dofetilide (Tikosyn) 500 MCG capsule TAKE 1 CAPSULE BY MOUTH TWICE A DAY 180 capsule 11 02/01/2025 Active tamsulosin (Flomax) 0.4 MG capsule Take 1 (one) capsule by mouth once daily 01/02/2025 Active furosemide (Lasix) 20 MG tablet Take 1 (one) tablet by mouth once daily 90 tablet 4 02/10/2025 Active Active Problems Problem Noted Date Diagnosed [...] Department Care Team Description 02/17/2025 Orders Only [facility] - Cardiology [address] [place] [phone] Daniel Mccracken RN Persistent atrial fibrillation (HCC) ; Atypical atrial flutter (HCC) 02/10/2025 10:00 AM CDT Office Visit [facility] - Cardiology [address] [place] [phone] Manuelito Clarke MD Atypical atrial flutter (HCC) (Primary Dx); HTN (hypertension), benign 02/10/2025 Travel 02/01/2025 Refill [facility] - Cardiology [address] [place] [phone] Manuelito Clrake MD Refill Request 01/07/2025 1:52 PM CDT - 01/07/2025 11:59 PM CDT Hospital Encounter [facility] [address] [place] [address] Malaika Wolf MD Discharge Disposition: Home or Self Care 01/07/2025 Travel 01/06/2025 Telephone [facility] [address] [place] [address] Shahzad Fina 01/06/2025 Orders Only [facility] - Hematology/Oncology [address] [place] [address] Malaika Wolf MD Chronic deep vein thrombosis [...] PM CDT Legal Sex Male 4:32 AM UNLOADER Gender Identity Male 03/04/2022 6:00 PM CDT [...] 2024 LIPID TESTING 10/11/2024 10/11/2019 INFLUENZA VACCINE (#1) 2025 2, 06/13/2022, 06/07/2021, Additional history exists SCREENING FOR DIABETES 01/08/2028 5, 09/10/2024, 06/30/2024, Additional history exists HEPATITIS B [...] this topic Medical Devices Implanted Type Area Wet Roller Device Identifier Shelf Expiration Date Model / Serial / Lot Mesh Srg Ultrapro 4.7x2.4in Lg [place] Implanted:Qty: 1 on 08/03/2018 by Lionel Bee MD at [facility] Right: Groin [employer] 02/06/2020 [facility] / / [id number] Description:DOCUMENTED BY Julianne Harrison Procedures Procedure Name Priority Date/Time Associated Diagnosis Comments CARDIAC PROCEDURE ORDER 02/24/2025 EKG 12-LEAD Routine 02/10/2025 10:21 AM CDT Atypical atrial flutter (HCC) CBC W AUTO DIFFERENTIAL STAT 01/07/2025 2:09 PM CDT 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 (HCC) COMPREHENSIVE METABOLIC PANEL STAT 01/07/2025 2:09 PM CDT 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 (HCC) from Last 3 Months Results * CARDIAC PROCEDURE ORDER (02/24/2025) Narrative 02/24/2025 Ordered by an unspecified provider. us Scanned Document CARDIAC SERVICES ORDERABLES Fin al Result * EKG 12-Lead (02/10/2025 10:21 AM CDT) Pathologist [facility] Ventricular Rate 59 BPM [facility] Atrial Rate 59 BPM [facility] P-R Interval 168 ms [facility] QRS Duration ms 90 ms [facility] Q-T Interval ms 446 ms [facility] QTC Calculation (Bezet) 441 ms [facility] Calculated P [place] 92 degrees [facility] Calculated R [place] 5 degrees [facility] Calculated T [place] 36 degrees [facility] Interpretation EKG SINUS BRADYCARDIA WITH PREMATURE ATRIAL COMPLEXES OTHERWISE NORMAL ECG WHEN COMPARED WITH ECG OF 19-AUG-2024 09:58, PREMATURE ATRIAL COMPLEXES ARE NOW PRESENT Confirmed by MANUELITO CLARKE MD ([id number]) on 02/12/2025 10:31:47 AM [facility] 02/10/2025 10:2 1 AM CDT 02/12/2025 10:31 AM CDT us Manuelito Clarke MD ECG ORDERABLES Edited Result - Final [facility] * (ABNORMAL) CBC WITH DIFFERENTIAL (01/07/2025 2:09 PM CDT) [facility] WBC 3.3(L) 4.0 - 10.7 x10E9/L 01/07/2025 2:27 PM CDT [facility] RBC Count 4.59 4.30 - 5.80 x10E12/L 01/07/2025 2:27 PM CDT [facility] Hemoglobin 15.2 13.3 - 17.5 g/dL 01/07/2025 2:27 PM CDT [facility] Hematocrit 43.8 38.7 - 51.1 % 01/07/2025 2:27 PM T [facility] MCV 95.4 80.0 - 98.0 fL 01/07/2025 2:27 PM T [facility] MCH 33.1 26.7 - 33.6 pg 01/07/2025 2:27 PM [facility] MCHC 34.7 31.7 - 36.3 g/dL 01/07/2025 2:27 PM [facility] RDW-CV 13.1 11.3 - 14.8 % 01/07/2025 2:27 PM [facility] Platelet Count 173 150 - 420 x10E9/L 01/07/2025 2:27 PM [facility] MPV 10.0 7.8 - 11.4 fL 01/07/2025 2:27 PM [facility] Preliminary Absolute Neutrophil 2.16 1.60 - 7.50 x10E9/L 01/07/2025 2:27 PM [facility] Neutrophil % 66.3 41.0 - 74.0 % 01/07/2025 2:27 PM [facility] Lymphocyte % 19.3 17.0 - 47.0 % 01/07/2025 2:27 PM [facility] Monocyte % 10.1 3.0 - 11.0 % 01/07/2025 2:27 PM [facility] Eosinophil % 2.5 0.0 - 7.0 % 01/07/2025 2:27 PM [facility] Basophil % 1.2 0.0 - 1.6 % 01/07/2025 2:27 PM [facility] Immature Granulocytes % 0.6 0.0 - 1.0 % 01/07/2025 2:27 PM [facility] Neutrophil Absolute 2.16 1.60 - 7.50 x10E9/L 01/07/2025 2:27 PM [facility] Lymphocyte Absolute 0.63(L) 1.00 - 4.40 x10E9/L 01/07/2025 2:27 PM [facility] Monocyte Absolute 0.33 0.15 - 1.00 x10E9/L 01/07/2025 2:27 PM [facility] Eosinophil Absolute 0.08 0.00 - 0.60 x10E9/L 01/07/2025 2:27 PM [facility] Basophil Absolute 0.04 0.00 - 0.13 x10E9/L 01/07/2025 2:27 PM [facility] Blood BLOOD SPECIMEN / Unknown Venipuncture / Unknown 01/07/2025 2:09 PM CDT 01/07/2025 2:17 PM CDT us Malaika Wolf MD LAB - HEMATOLOGY ORDERABLES Lucina l Result [facility] [address] [place] [address], [facility] [phone] * (ABNORMAL) COMPREHENSIVE METABOLIC PANEL (01/07/2025 2:09 PM CDT) BUN 15 7 - 26 mg/dL 01/07/2025 2:48 PM [facility] Creatinine 0.84 0.71 - 1.16 mg/dL 01/07/2025 2:48 PM [facility] Sodium 142 136 - 145 mmol/L 01/07/2025 2:48 PM [facility] Potassium 4.2 3.5 - 4.5 mmol/L 01/07/2025 2:48 PM [facility] Chloride 107 98 - 107 mmol/L 01/07/2025 2:48 PM [facility] CO2 27 22 - 29 mmol/L 01/07/2025 2:48 PM [facility] Glucose 109(H) 70 - 99 mg/dL 01/07/2025 2:48 PM [facility] Calcium 9.6 8.4 - 10.2 mg/dL 01/07/2025 2:48 PM [facility] Protein Total 6.8 6.0 - 8.3 g/dL 01/07/2025 2:48 PM [facility] Albumin 4.1 3.4 - 5.0 g/dL 01/07/2025 2:48 PM [facility] Bilirubin Total 1.0 0.2 - 1.2 mg/dL 01/07/2025 2:48 PM [facility] Alkaline Phosphatase 74 40 - 150 U/L 01/07/2025 2:48 PM [facility] ALT 22 5 - 55 U/L 01/07/2025 2:48 PM CDT [facility] AST 21 5 - 34 U/L 01/07/2025 2:48 PM CDT [facility] Anion Gap 8 6 - 16 01/07/2025 2:48 PM T [facility] BUN/Creatinine Ratio 18 7 - 23 01/07/2025 2:48 PM CDT [facility] Osmolality Calculated 295 275 - 295 mOsm/kg 01/07/2025 2:48 PM T [facility] Albumin/Globulin Ratio 1.5 1.1 - 2.3 01/07/2025 2:48 PM T [facility] eGFR by CKD-EPI >90 >=90 mL/min/1.7 3 m2 01/07/2025 2:48 PM T [facility] Blood BLOOD SPECIMEN / Unknown Venipuncture / Unknown 01/07/2025 2:09 PM CDT 01/07/2025 2:17 PM CDT Malaika Wolf MD LAB - CHEMISTRY ORDERABLES Final Result [facility] [address] [place] [address], [facility] [phone] from Last 3 Months Insurance [employer] MEDICARE ADV HMO & PPO Advance Directives Documents on File Type Date Recorded Patient Vp Digital Marketing Expl anation Adv Directive/Living Will/POA 08/05/2018 3:14 PM Care Teams Obstetrician And Gynaecologist Relationship Specialty Start Date End Date Jeffry Novak MD [address] [place] [phone] PCP - General Family Medicine 09/29/23 Malaika Wolf MD [address] [place] [address] Physician Hematology and Oncology 09/10/23
== END 2025-04-08 13:20 | disposition home or self-care (01) ==
PROVIDERS: PCP Family Medicine; Visit Provider Nurse Practitioner Family
DX: R22.42 Localized swelling, mass and lump, left lower limb (principal); M79.89 Other specified soft tissue disorders; I82.432 Acute embolism and thrombosis of left popliteal vein
CPT/HCPCS: 76882; 93971

== ENCOUNTER 2025-07-27 09:21 | Outpatient (CLI) | payer MEDICARE, SELFPAY ==
--- OUTSIDE RECORDS SUMMARY | 2025-07-27 12:28 | XMS_ITS | Encounter Summary ---
Author Organization [facility] Health Address [address] [place] [address] Care Team Providers Care Chucking And Sawing Machine Operator Name Role Phone Amando Rooney DO Primary Care Provider [phone] Sarath Edward MD Primary Care Provider [phone] Denny Polo DO Primary Care Provider [phone] Malaika Wolf MD Unavailable Jeffry Novak MD Primary Care Provider [phone] Encounter Details Date Type Department Care Team (Late st Contact Info) Description 05/20/2013 [facility] Outpatient Visit [id number] Pcp, [place] [address] Social History Tobacco Use Types Packs/Day Years Used Date Smoking Tobacco: Never Smokeless Tobacco: Never Alcohol Use Standard Drinks/Week Comments Yes 5 (1 standard drink = 0.6 oz pur e alcohol) Sex and Gender Information Value Date Recorded Sex Assigned at Male 03/04/2022 6:00 PM CDT Legal Sex Male 4:32 AM RECORDS MANAGER Gender Identity Male 03/04/2022 6:00 PM CDT Sexual Orientation Not on file documented as of this encounter Plan of Treatment Not on file documented as of this encounter Visit Diagnoses Not on filedocumented in this encounter Care Teams Chucking And Sawing Machine Operator Relationship Specialty Start Date End Date Amando Rooney DO [address] [place] [address] PCP - General Family Medicine 01/27/13 02/04/18 Sarath Edward MD [address] [place] [address] PCP - General 02/05/18 08/23/20 Denny Polo DO [address] [place] [address] PCP - General Internal Medicine 08/24/20 09/28/23 Jeffry Novak MD [address] [place] [phone] PCP - General Family Medicine 09/29/23 Malaika Wolf MD [address] [place] [address] Physician Hematology and Oncology 09/10/23 documented as of this encounter
--- OUTSIDE RECORDS SUMMARY | 2025-07-27 12:28 | XMS_ITS | Encounter Summary ---
Author Organization [facility] Address [address] [facility] [place] [address] Care Team Providers Care Materials Mgmt Tech Name Role Phone Amando Rooney DO Primary Care Provider [phone] Sarath Edward MD Primary Care Provider [phone] Denny Polo DO Primary Care Provider [phone] Malaika Wolf MD Unavailable Jeffry Novak MD Primary Care Provider [phone] Encounter Details Date Type Department Care Team (Late st Contact Info) Description 07/22/2012 [facility] Outpatient Visit [facility] - Family Medicine [address] [place] [address] Amando Rooney DO [address] [place] [address] Social History Tobacco Use Types Packs/Day Years Used Date Smoking Tobacco: Never Smokeless Tobacco: Never Alcohol Use Standard Drinks/Week Comments Yes 5 (1 standard drink = 0.6 oz pur e alcohol) Sex and Gender Information Value Date Recorded Sex Assigned at Male 03/04/2022 6:00 PM CDT Legal Sex Male 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 Gender Identity Male 03/04/2022 6:00 PM CDT Sexual Orientation Not on file documented as of this encounter Plan of Treatment Not on file documented as of this encounter Visit Diagnoses Not on filedocumented in this encounter Care Teams Materials Mgmt Tech Relationship Specialty Start Date End Date Amando Rooney DO [address] [place] [address] PCP - General Family Medicine 01/27/13 02/04/18 Sarath Edward MD [address] [place] [phone] PCP - General 02/05/18 08/23/20 Denny Polo DO [address] [address] PCP - General Internal Medicine 08/24/20 09/28/23 Jeffry Novak MD [address] [place] [phone] PCP - General Family Medicine 09/29/23 Malaika Wolf MD [address] [place] [address] Physician Hematology and Oncology 09/10/23 documented as of this encounter
--- OUTSIDE RECORDS SUMMARY | 2025-07-27 12:29 | XMS_ITS | Encounter Summary ---
Author Organization [facility] Health Address [address] [facility] [place] [address] Care Team Providers Care Airplane Pilot Crop Dusting Name Role Phone Amando Rooney DO Primary Care Provider [phone] Sarath Edward MD Primary Care Provider [phone] Denny Polo DO Primary Care Provider [phone] Malaika Wolf MD Unavailable Jeffry Novak MD Primary Care Provider [phone] Encounter Details Date Type Department Care Team (Late st Contact Info) Description 01/09/2012 [facility] Outpatient Visit [id number] Amando Rooney DO [address] [place] [address] Social History Tobacco Use Types Packs/Day Years Used Date Smoking Tobacco: Never Assessed Sex and Gender Information Value Date Recorded Sex Assigned at Male 03/04/2022 6:00 PM CDT Legal Sex Male 4:32 AM FACILITIES ADMINISTRATOR Gender Identity Male 03/04/2022 6:00 PM CDT Sexual Orientation Not on file documented as of this encounter Plan of Treatment Not on file documented as of this encounter Visit Diagnoses Not on filedocumented in this encounter Care Teams Airplane Pilot Crop Dusting Relationship Specialty Start Date End Date Amando Rooney DO [address] [place] [address] PCP - General Family Medicine 01/27/13 02/04/18 Sarath Edward MD [address] [place] [address] PCP - General 02/05/18 08/23/20 Denny Polo DO [address] [place] [address] PCP - General Internal Medicine 08/24/20 09/28/23 Jeffry Novak MD [address] [place] [phone] PCP - General Family Medicine 09/29/23 Malaika Wolf MD [address] [place] [address] Physician Hematology and Oncology 09/10/23 documented as of this encounter
--- OUTSIDE RECORDS SUMMARY | 2025-07-27 12:29 | XMS_ITS | Clinical Summary ---
Author Organization [facility] Address [address] [place] [address] Care Team Providers Care Counterintelligence Analyst Name Role Phone Denny Polo DO Primary Care Provider [phone] Allergies No known active allergies Medications calcium [...] (01/22/2021): Added automatically from request for surgery [id number] Longstanding persistent atrial fibrillation 11/07 Vitamin D [...] Mother Yakelin Relation Name Status Comments Father Schyuler Mother Yakelin Social History Tobacco Use Types Packs/Day Years Used Date Smoking Tobacco: Never Smokeless Tobacco: Never Tobacco Cessation:Counseling Given: Not Answered Alcohol Use Standard Drinks/Week Comments Yes 6 (1 standard drink = 0.6 oz pur e alcohol) Sex and Gender Information Value Date Recorded Sex Assigned at Not on file Legal Sex Male 11:37 AM ORDER BUILDER Gender Identity Not on file Sexual Orientation Not on file Last Filed Vital Signs Vital Sign Reading Time Taken Comments Blood Pressure 164/81 07/29/2022 2:46 PM ORDER BUILDER Pulse 83 07/29/2022 2:46 PM ORDER BUILDER Temperature 36.3 C (97.4 F) 07/29/2022 2:46 PM ORDER BUILDER Respiratory Rate 18 10/04/2020 7:45 AM ORDER BUILDER Oxygen Saturation 96% 10/04/2020 7:45 AM ORDER BUILDER Inhaled Oxygen Concentration - - Weight 99.8 kg (220 lb) 07/29/2022 2:46 PM ORDER BUILDER Height 190.5 cm (6' 3) 07/29/2022 2:46 PM ORDER BUILDER Body Mass Index 27.5 07/29/2022 2:46 PM ORDER BUILDER Plan of Treatment Health Maintenance Due Date [...] history exists Medical Devices Implanted Type Area Black Top Roller Device Identifier Shelf Expiration Date Model / Serial / Lot Ivc Filter- 5 Implanted:Qty: 1 on 09/20/2004 IVC Filter Right: Groin [employer] [id number] Attune Cruciate Retain Cementless Knee Left 8 Component Femoral - Sn/A - [id number] Implanted:Qty: 1 on 10/03/2020 by Koffi Liao MD at [facility] Other - see comments Left: Knee [employer] [id number] 03/07/2030 [id number] / N/A / [id number] [employer] [id number] Attune Cementless Rotate Platform Knee 10 Baseplate Tibial - Sn/A - [id number] Implanted:Qty: 1 on 10/03/2020 by Koffi Liao MD at [facility] Other - see comments Left: Knee [employer] [id number] 09/07/2029 [id number] / N/A / [id number] [employer] [id number] Attune 8mm Cruciate Retaining Rotate Platform Knee 8 Insert - Sn/A - [id number] Implanted:Qty: 1 on 10/03/2020 by Koffi Liao MD at [facility] Other - see comments Left: Knee [employer] [id number] 08/07/2025 [id number] / N/A / [id number] Procedures Procedure Name Priority Date/Time Associated Diagnosis [...] Sweet M.D. EMELY:emely 02:50 PM 02:50 PM [facility] [EOD] Narrative 12/18/2015 2:54 PM CDT EXAMINATION: Pre and post IV contrast CT the abdomen and pelvis. HISTORY: Chronic blood clots. Marion filter placed 06/2005. Increased leg pain. Kidney [...] Sweet M.D. EMELY:emely 02:50 PM 02:50 PM [facility] [EOD] Himanshu Brito MD IMG CT PROCEDURES Final Re sult from Last 3 Months or Most Recently Relevant to Health Maintenance Insurance [employer] CHOICE MEDICARE PPO HU[employer] CHOICE MEDICARE PPO [employer] CHOICE MEDICARE PPO Advance Directives For more information, please contact: [phone] Documents on File Type Date Recorded Patient [employer] Executive Expl anation ADVANCE DIRECTIVE 10/03/2020 9:53 AM ADVANCE DIRECTIVE 01/09/2018 11:21 AM ADVANCE DIRECTIVE 01/09/2018 Advance Di rective Checklist ADVANCE DIRECTIVE 02/02/2016 12:00 AM ABEL R OF EXPERIMENTAL ELECTRONICS DEVELOPER FINANCIAL/MEDICAL * Full Code (Latest Code Status on File) Date Activated Date Inactivated Comments 10/03/2020 3:58 PM 10/04/2020 1:55 PM Care Teams Counterintelligence Analyst Relationship Specialty Start Date End Date Denny Polo DO PCP - General Internal Medicine 04/06/19
--- OUTSIDE RECORDS SUMMARY | 2025-07-27 12:29 | XMS_ITS | Encounter Summary ---
Author Organization [facility] Address [address] [facility] [place] [address] Care Team Providers Care Pot Room Tapper Name Role Phone Denny Polo Primary Care Provider [phone] Malaika Wolf MD Unavailable Jeffry Novak MD Primary Care Provider [phone] Reason for Visit * Reason Onset Date Comments MEDICATION REFILL 06/12/2023 Encounter Details Date Type Department Care Team (Late st Contact Info) Description 06/12/2023 Refill [facility] - Hematology/Oncology [address] [place] [phone] Sakshi Sam MD [address] [facility] [place] [phone] MEDICATION REFILL Social History Tobacco Use Types Packs/Day Years Used Date Smoking Tobacco: Never Smokeless Tobacco: Never Alcohol Use Standard Drinks/Week Comments Yes 5 (1 standard drink = 0.6 oz pur e alcohol) occ PHQ-2 Answer Date Recorded PHQ2 TOTAL SCORE 0 07/25/2022 Sex and Gender Information Value Date Recorded Sex Assigned at Male 03/04/2022 6:00 PM CDT Legal Sex Male 4:32 AM BRAND COORDINATOR Gender Identity Male 03/04/2022 6:00 PM CDT Sexual Orientation Not on file documented as of this encounter Plan of Treatment Not on file documented as of this encounter Visit Diagnoses Not on filedocumented in this encounter Care Teams Pot Room Tapper Relationship Specialty Start Date End Date Denny Polo DO [address] [place] [address] PCP - General Internal Medicine 08/24/20 09/28/23 Jeffry Novak MD [address] [place] [phone] PCP - General Family Medicine 09/29/23 Malaika Wolf MD [address] [place] [address] Physician Hematology and Oncology 09/10/23 documented as of this encounter
--- OUTSIDE RECORDS SUMMARY | 2025-07-27 12:29 | XMS_ITS | Encounter Summary ---
Author Organization [facility] Health Address [address] [place] [address] Care Team Providers Care Fishing Hand Name Role Phone Amando Rooney DO Primary Care Provider [phone] Sarath Edward MD Primary Care Provider [phone] Denny Polo DO Primary Care Provider [phone] Malaika Wolf MD Unavailable Jeffry Novak MD Primary Care Provider [phone] Encounter Details Date Type Department Care Team (Late st Contact Info) Description 06/03/2013 [facility] Outpatient Visit [id number] Unknown, Provider Social History Tobacco Use Types Packs/Day Years Used Date Smoking Tobacco: Never Smokeless Tobacco: Never Alcohol Use Standard Drinks/Week Comments Yes 5 (1 standard drink = 0.6 oz pur e alcohol) Sex and Gender Information Value Date Recorded Sex Assigned at Male 03/04/2022 6:00 PM CDT Legal Sex Male 4:32 AM TIRE CARE MANAGER Gender Identity Male 03/04/2022 6:00 PM CDT Sexual Orientation Not on file documented as of this encounter Plan of Treatment Not on file documented as of this encounter Visit Diagnoses Not on filedocumented in this encounter Care Teams Fishing Hand Relationship Specialty Start Date End Date Amando Rooney DO [address] [place] [address] PCP - General Family Medicine 01/27/13 02/04/18 Sarath Edward MD [address] [place] [phone] PCP - General 02/05/18 08/23/20 Denny Polo DO [address] [place] [id number] PCP - General Internal Medicine 08/24/20 09/28/23 Jeffry Novak MD [address] [place] [id number] PCP - General Family Medicine 09/29/23 Malaika Wolf MD [address] [place] [phone] Physician Hematology and Oncology 09/10/23 documented as of this encounter
--- OUTSIDE RECORDS SUMMARY | 2025-07-27 12:29 | XMS_ITS | Clinical Summary ---
Author Organization [facility] [employer] Address [address] [place] [address] Care Team Providers Care Supervisor Engraving Name Role Phone Malaika Wolf MD Unavailable Jeffry Novak MD Primary Care Provider [phone] Source Comments [facility] [employer],non-owned Affiliates and Associated Physician Practices is amultiple site organization consisting of ambulatory clinics and hospital sitesin [place], [place] and [place]. This disclosure is being madepursuant to the Care Everywhere program and may not contain all information available regarding this patient. Last updated 18.[facility] [employer] Allergies No known active allergies Medications * [...] Tikosyn as managed by Dr. Mendoza at [facility]. Continue Eliquis for 30 days after cardioversion. Follow-up as scheduled with Dr. Mendoza's team in May and with Dr. Clarke in August or sooner PRN. Resolved Problems Problem Noted Date Diagnosed Date Resolved Date DVT (deep venous thrombosis) 06/05/2014 Fluttering heart 06/05/2014 Immunizations Immunization Administration Dates Next Due INFLUENZA [...] PM CDT Legal Sex Male 4:32 AM ACCOUNT MANAGER Gender Identity Male 03/04/2022 6:00 PM [...] - Risk 60-74 years 1-dose series) 2011 DEPRESSION SCREENING 09/08/2024 07/25/2022 MEDICARE AWV CALENDAR YEAR 2024 COVID-19 VACCINE ( - season) 2025 02/12/2022, 07/06/2021, 12/07/2020, Additional history exists INFLUENZA VACCINE (#1) 2025 2, 06/13/2022, 06/07/2021, [...] this topic Medical Devices Implanted Type Area Rehabilitation Supervisor Device Identifier Shelf Expiration Date Model / Serial / Lot Mesh Srg Ultrapro 4.7x2.4in Lg [place] Implanted:Qty: 1 on 08/03/2018 by Lionel Bee MD at Formerly named [facility] Right: [employer] 02/06/2020 SL / / [id number] Description:DOCUMENTED BY Julianne Harrison Procedures Procedure Name Priority Date/Time Associated Diagnosis Comments COMPREHENSIVE METABOLIC PANEL STAT 01/07/2025 2:09 PM CDT 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 (HCC) from Last 3 Months or Most Recently Relevant to Health Maintenance Results * (ABNORMAL) COMPREHENSIVE METABOLIC PANEL (01/07/2025 2:09 PM [facility] BUN 15 7 - 26 mg/dL 01/07/2025 [...] 3.4 - 5.0 g/dL 01/07/2025 2:48 PM [facility] Bilirubin Total 1.0 0.2 - 1.2 mg/dL [...] 1.5 1.1 - 2.3 01/07/2025 2:48 PM CDT [facility] eGFR by CKD-EPI >90 >=90 mL/min/1.7 3 m2 01/07/2025 2:48 PM CDT [facility] Blood BLOOD SPECIMEN / Unknown Venipuncture / Unknown 01/07/2025 2:09 PM CDT 01/07/2025 2:17 PM CDT Malaika Wolf MD LAB - CHEMISTRY ORDERABLES Final Result [facility] [address] [place] [address], [facility] [phone] from Last 3 Months or Most Recently Relevant to Health Maintenance Insurance [employer] MEDICARE ADV HMO & PPO Advance Directives Documents on File Type Date Recorded Patient Director Of Event Marketing Expl anation Adv Directive/Living Will/POA 08/05/2018 3:14 PM Care Teams Supervisor Engraving Relationship Specialty Start Date End Date Jeffry Novak MD [address] [place] [phone] PCP - General Family Medicine 09/29/23 Malaika Wolf MD [address] [place] [phone] Physician Hematology and Oncology 09/10/23
[2025-08-15 14:22] VITALS: BMI 26.2
--- NOTE | 2025-08-15 14:22 | P.SLEEP_ITS ---
Sleep Study - Home Unattended Date of Study: 07/27/25 Ordering Provider: Jeffry Novka MD Interpreting Provider: Kaylynn Contreras, DO Home Sleep Study Type: Watch PAT Height: 1.91 m Weight: 95.254 kg Body Mass Index: 26.2 Neck Circumference (inches): 16 [place]: 2 Reason for Sleep Study Nocturnal gasping, unrefreshing sleep Sleep History The patient is a 74-year-old male that had a sleep study ordered by his primary care physician for evaluation of sleep apnea. The patient occasionally awakens from sleep short of breath. He denies awakening at night with heartburn, belching or cough. He occasionally snores and is occasionally loud others complain. He occasionally has trouble sleeping when he has a cold. He occasionally wakes up gasping for air throughout the night. He occasionally has breathing problems at night observed by himself or others. He rarely sweats excessively at night. He rarely falls asleep during the day but never while driving. He denies sleep paralysis, cataplexy and hypnagogic/ hypnopompic hallucinations. He denies having trouble at school or work due to sleepiness. He denies feeling afraid of going to sleep. He denies having nightmares. He rarely remembers his dreams. He rarely has thoughts racing through his mind. He denies feeling sad or depressed. He rarely has anxiety. He denies having muscular tension. He denies noticing parts of his body jerk. He denies kicking during the night. He denies having crawling and aching feelings in his legs denies having leg pain during the night. He denies grinding his teeth during sleep and denies awakening with morning jaw pain. He is occasionally bothered by pain during the day and occasionally awakened by pain during the night. He occasionally wakes up feeling stiff in the morning. He occasionally wakes up with sore or achy muscles. He frequently wakes up with pain in the neck, spine and other joints. He goes to bed at 9:30 p.m. every night. It takes him 10 minutes to fall asleep. He wakes up 3-4 times throughout the night to urinate and is able to fall back asleep within 10-20 minutes. He wakes up at 5:30 a.m. every morning. He typically gets 7 hours of sleep per night. He will stay in bed for 5-10 minutes after waking up in the morning. He currently lives with his girlfriend. He denies consuming any caffeinated beverages within 2 hours of bedtime. He denies engaging in physical exercise before bedtime. He will watch television before falling asleep. He will occasionally take naps in afternoon or the evening and they are refreshing. He consumes 1 caffeinated beverage per day. He denies tobacco, alcohol and recreational drug use. [facility] Past Medical History Medical History Chronic deep vein thrombosis (DVT) of right lower extremity Right inguinal hernia Elevated blood pressure reading in office without diagnosis of hypertension Coagulopathy Deep vein thrombosis Acute hip pain History of atrial fibrillation without current medication Surgical History Surgical History S/P arthroscopic surgery of right knee Total knee replacement status Status post ablation of atrial fibrillation History of embolic filter insertion Family History Family History Mother Patient's mother is in good health Family history of Alzheimer's disease Father Patient's father is in good health Family history of cardiac disorder Other Family history of cardiovascular disease Social History Social History Smoking status: Never smoker Second hand tobacco smoke exposure: No Alcohol intake: current Drinks per week: 4 Substance use: never Substance use type: does not use Lack of Transportation: No Lack of Food: Never True Current Housing: I Have Housing Concerned About Future Housing: No Difficulty Paying Gas/Electric Bills: No Difficulty Paying for Meds: No Currently Unemployed: No Education: Trade/Vocational Certificate Difficulty w/ Childcare or Family Care: No Living arrangements: with friend(s) Additional living arrangements comments: LIVES WITH SIGNIFICANT OTHER Occupation/Education: retired Gender identity (if verbalized by the patient): Male Spiritual care concerns: No Agree to blood products: Yes Medications Home Medications ?Medication ?Instructions ?Recorded ?Confirmed ?Type calcium carbonate 500 mg PO DAILY 10/06/2010/02 History dofetilide 500 mcg capsule 500 mcg PO BID 02/28/2210/02 History (Tikosyn) multivitamin 1 tablet PO DAILY 09/23/23 0 03/08/25 History ibuprofen 200 mg tablet 200 mg PO Q6H PRN 08/18/24 0 03/08/25 History sildenafil 100 mg tablet See Rx Instructions .Route 1 09/10/24 Rx .COMPLEX #6 tabs rivaroxaban 10 mg tablet (Xarelto) 10 mg PO DAILY #90 tabs 08/15/25 Rx Sleep Procedure The sleep study was completed using DataSphereT a technically adequate device with seven channels: peripheral arterial tone, actigraphy, body position, snore, respiratory movement, pulse oximetry, sleep staging, and heart rate. Prior to using the device, the patient received verbal and written instructions for its application and was provided with the help desk phone number for additional telephonic instruction with 24-hour availability of qualified personnel to answer questions. The study was scored using CMS guidelines. Sleep Architecture The total recording time is 7 hrs, 45 min. The total sleep time is 6 hrs, 39 min. Sleep latency is 19 minutes. REM latency is 335 minutes. The patient had 9 episodes of waking. Sleep architecture shows 10.8% deep sleep, 62.8% light sleep, and (as % Total Sleep Time) showed NREM (Light 62.8%; Deep 10.8%), and a 26.5% stage REM. The patient spent 79.7% of total sleep time in the supine position. Sleep efficiency was 85.81. Respiratory Analysis The overall AHI (pAHI 4%:) is 28.9. The overall AHI (pAHI 3%:) is 33.6. The central AHI is 24.8. The AHI was 42.7 in NREM and 9.4 in REM sleep. The AHI was 39.9 in Supine and 7.5 in Non-supine sleep. Percent of Dameon Da Silva respirations is 13.4. Oximetry Data The oxygen desaturation index (SABRINA 4%:) is 22.1. The mean saturation is 93%, and the lowest saturation is 86%. Time spent with saturation < 88% is 1.1 minutes. Snoring Profile Snoring average intensity is 41 dB. The patient snored above 45 decibels for 12.4 minutes, 3.1% of sleep time. Cardiac Profile The average pulse rate is 59 beats per minutes. The lowest pulse rate is 38 bpm. The highest pulse rate reported is 97 bpm. Atrial fibrillation was not detected. Premature beats occur 3.4 per minute. Assessment and Plan Assessment and Plan (1) VINAY (obstructive sleep apnea): Code(s): G47.33 - Obstructive sleep apnea (adult) (pediatric) Status: Acute Assessment and Plan: The patient had an overall AHI of 28.9 with desaturation down to 86%. This is consistent with moderate sleep apnea. I recommend that the patient had a CPAP titration study with the use of a hypnotic to ensure we obtain enough sleep data and find an optimal pressure setting. Data The data obtained during this sleep study is adequate for interpretation. Certification This sleep study has been reviewed by a board certified sleep medicine physician.
== END 2025-07-28 14:01 | disposition home or self-care (01) ==
PROVIDERS: PCP Family Medicine; Visit Provider Family Medicine
DX: G47.30 Sleep apnea, unspecified (principal); G47.33 Obstructive sleep apnea (adult) (pediatric)
CPT/HCPCS: 95800